=== PATIENT | male | born 1970 | race Caucasian/White ===

== ENCOUNTER → 2016-08-16 | Outpatient (CLI) | payer BC ==
[2016-08-16 15:07] LABS: CH 31.3; CHCM 35.5; HCT 48.3 % (39.0-53.0); HDW 2.65; HGB 16.7 gm/dL (13.0-17.5); MCH 30.6 pg (25.0-35.0); MCHC 34.6 g/dL (31.0-37.0); MCV 88.4 fL (80.0-100.0); Mean Platelet Volume 6.7; RBC 5.46 m/uL (4.30-5.90); RDW 11.9 % (11.5-15.5); WBC 6.8 k/uL (3.8-10.6)
[2016-08-16 15:23] LABS: ALT 45 U/L (21-72); AST 27 U/L (17-59); Alkaline Phosphatase 64 U/L (38-126); Anion Gap 10 mmol/L; Blood Urea Nitrogen 18 mg/dL (9-20); Calcium 9.5 mg/dL (8.4-10.2); Carbon Dioxide 32 mmol/L (22-30); Chloride 100 mmol/L (98-107); Glucose 79 mg/dL (74-99); Non-African American GFR(MDRD) >60 (>60 ml/min/1.73 sqM); Potassium 4.2 mmol/L (3.5-5.1); Sodium 142 mmol/L (137-145); Total Bilirubin 0.7 mg/dL (0.2-1.3); Total Protein 8.1 g/dL (6.3-8.2)
== END | disposition home or self-care (01) ==
LOC: LABWHC1 14:35
PROVIDERS: ATTEND Internal Medicine Interventional Cardiology
DX: I48.0 Paroxysmal atrial fibrillation (principal); I10 Essential (primary) hypertension
CPT/HCPCS: 36415; 80053; 84443; 85027

== ENCOUNTER 2017-11-20 15:19 | Observation (INO) | payer BC ==
[2017-11-20] MEDS ORDERED: SODIUM CHLORIDE 0.9% 500 ML IV STA (15:46)
[2017-11-20] MEDS ORDERED: DILTIAZEM 5 MG/1 ML (25ML VIAL) IV STA (15:47)
--- NOTE | 2017-11-20 15:55 | ED ---
General Adult HPI - General Chief complaint: Arrhythmia/Palpitations Stated complaint: A FIB Time Seen by Provider: 11/20/17 15:20 Source: patient, RN notes reviewed Mode of arrival: wheelchair Limitations: no limitations - History of Present Illness Initial comments: This is a 47-year-old male who presents emergency Department feeling as though his heart was racing and irregular. Patient states had a history of atrial fibrillation but is not on any medications for it at this time. Patient states he used to be has a blood pressure medications but he stopped because his chiropractor told to. Patient denies any chest pain or shortness of breath or difficulty breathing. Patient denies any recent fever chills or cough. Patient states he gets is on occasion but normally goes away fairly quickly and this did not go away so he decided come emergency department. Patient denies any abdominal pain patient denies nausea vomiting diarrhea. Patient denies any lightheadedness dizziness or near syncopal episode. Patient denies any leg swelling or calf tenderness. - Related Data Home Medications Medication Instructions Recorded Confirmed Multivit-Min/FA/Lycopen/Lutein 1 tab PO DAILY 11/20/17 11/20/17 [Centrum Silver Men Tablet] Potassium 297 - 396 mg PO DAILY 11/20/17 11/20/17 Saw [place] 500 mg PO DAILY 11/20/17 11/20/17 Allergies Allergy/AdvReac Type Severity Reaction Status Date / Time Penicillins Allergy Fever Verified 11/20/17 15:40 Review of Systems ROS Statement: Those systems with pertinent positive or pertinent negative responses have been documented in the HPI. ROS Other: All systems not noted in ROS Statement are negative. Past Medical History Past Medical History: Atrial Fibrillation, Hypertension Additional Past Medical History / Comment(s): hernia History of Any Multi-Drug Resistant Organisms: None Reported Past Surgical History: Hernia Repair Additional Past Surgical History / Comment(s): hand, Past Psychological History: No Psychological Hx Reported Smoking Status: Current every day smoker Past Alcohol Use History: Occasional Past Drug Use History: Marijuana General Exam - General Exam Comments Initial Comments: GENERAL: Patient is well-developed and well-nourished. Patient is nontoxic and well- hydrated and is in no acute distress. ENT: Neck is soft and supple. No significant lymphadenopathy is noted. Oropharynx is clear. Moist mucous membranes. EYES: The sclera were anicteric and conjunctiva were pink and moist. Extraocular movements were intact and pupils were equal round and reactive to light. Eyelids were unremarkable. PULMONARY: Unlabored respirations. Good breath sounds bilaterally. No audible rales rhonchi or wheezing was noted. CARDIOVASCULAR: There is a regular rate and rhythm without any murmurs gallops or rubs. ABDOMEN: Soft and nontender with normal bowel sounds. No palpable organomegaly was noted. There is no palpable pulsatile mass. SKIN: Skin is clear with no lesions or rashes and otherwise unremarkable. NEUROLOGIC: Patient is alert and oriented x3. Cranial nerves II through XII are grossly intact. Motor and sensory are also intact. Normal speech, volume and content. Symmetrical smile. MUSCULOSKELETAL: Normal extremities with adequate strength and full range of motion. No lower extremity swelling or edema. No calf tenderness. LYMPHATICS: No significant lymphadenopathy is noted PSYCHIATRIC: Normal psychiatric evaluation. Normal interpersonal interactions appears functionally intact in deals appropriately with others. No signs of depression. No signs of anxiety. Limitations: no limitations Course Vital Signs 11/20/17 11/20/17 15:23 16:16 Temperature 97.7 F Pulse Rate 60 99 Respiratory 18 18 Rate Blood Pressure 158/115 158/100 O2 Sat by Pulse 98 99 Oximetry Medical Decision Making - Medical Decision Making EKG shows atrial fibrillation 70 bpm QRS is 90 QT interval 350 QTC is 399. Patient's EKG shows no ST segment elevation or depression or T wave abnormalities are noted. Chest x-ray shows no acute normalities. I spoke with Dr. Sarah Sneed frequent the patient started on a loading dose of Rythmol and then 150 mg every 8 hours and also wanted the patient started on eliquis. I spoke with Dr. Cantor I wrote admitting orders. - Lab Data Result diagrams: 11/20/17 15:31 11/20/17 15:31 Lab Results 11/20/17 11/20/17 11/20/17 Range/Units 15:31 15:31 15:31 WBC 8.1 (3.8-10.6) k/uL RBC 6.37 H (4.30-5.90) m/uL Hgb 18.8 H (13.0-17.5) gm/dL Hct 53.3 H (39.0-53.0) % MCV 83.6 (80.0-100.0) fL MCH 29.5 (25.0-35.0) pg MCHC 35.3 (31.0-37.0) g/dL RDW 12.1 (11.5-15.5) % Plt Count 191 (150-450) k/uL Neutrophils % 55 % Lymphocytes % 31 % Monocytes % 8 % Eosinophils % 3 % Basophils % 1 % Neutrophils # 4.4 (1.3-7.7) k/uL Lymphocytes # 2.5 (1.0-4.8) k/uL Monocytes # 0.7 (0-1.0) k/uL Eosinophils # 0.3 (0-0.7) k/uL Basophils # 0.1 (0-0.2) k/uL PT (9.0-12.0) sec INR (<1.2) APTT (22.0-30.0) sec Sodium 144 (137-145) mmol/L Potassium 4.1 (3.5-5.1) mmol/L Chloride 107 (98-107) mmol/L Carbon Dioxide 21 L (22-30) mmol/L Anion Gap 16 mmol/L BUN 16 (9-20) mg/dL Creatinine 0.80 (0.66-1.25) mg/dL Est GFR (CKD-EPI)AfAm >90 (>60 ml/min/1.73 sqM) Est GFR (CKD-EPI)NonAf >90 (>60 ml/min/1.73 sqM) Glucose 115 H (74-99) mg/dL Calcium 10.2 (8.4-10.2) mg/dL Magnesium 2.0 (1.6-2.3) mg/dL Total Bilirubin 0.9 (0.2-1.3) mg/dL AST 33 (17-59) U/L ALT 40 (21-72) U/L Alkaline Phosphatase 66 (38-126) U/L Total Creatine Kinase 328 H (55-170) U/L Total Protein 8.0 (6.3-8.2) g/dL Albumin 4.9 (3.5-5.0) g/dL Free T4 1.17 (0.78-2.19) ng/dL 11/20/17 Range/Units 15:31 WBC (3.8-10.6) k/uL RBC (4.30-5.90) m/uL Hgb (13.0-17.5) gm/dL Hct (39.0-53.0) % MCV (80.0-100.0) fL MCH (25.0-35.0) pg MCHC (31.0-37.0) g/dL RDW (11.5-15.5) % Plt Count (150-450) k/uL Neutrophils % % Lymphocytes % % Monocytes % % Eosinophils % % Basophils % % Neutrophils # (1.3-7.7) k/uL Lymphocytes # (1.0-4.8) k/uL Monocytes # (0-1.0) k/uL Eosinophils # (0-0.7) k/uL Basophils # (0-0.2) k/uL PT 11.1 (9.0-12.0) sec INR 1.2 H (<1.2) APTT 23.8 (22.0-30.0) sec Sodium (137-145) mmol/L Potassium (3.5-5.1) mmol/L Chloride (98-107) mmol/L Carbon Dioxide (22-30) mmol/L Anion Gap mmol/L BUN (9-20) mg/dL Creatinine (0.66-1.25) mg/dL Est GFR (CKD-EPI)AfAm (>60 ml/min/1.73 sqM) Est GFR (CKD-EPI)NonAf (>60 ml/min/1.73 sqM) Glucose (74-99) mg/dL Calcium (8.4-10.2) mg/dL Magnesium (1.6-2.3) mg/dL Total Bilirubin (0.2-1.3) mg/dL AST (17-59) U/L ALT (21-72) U/L Alkaline Phosphatase (38-126) U/L Total Creatine Kinase (55-170) U/L Total Protein (6.3-8.2) g/dL Albumin (3.5-5.0) g/dL Free T4 (0.78-2.19) ng/dL Disposition Clinical Impression: Atrial fibrillation Disposition: ADMITTED IP TO THIS HOSP Referrals: None,Stated [Primary Care Provider] - 1-2 days Time of Disposition: 16:37
[2017-11-20] MEDS ORDERED: APIXABAN 5 MG TAB PO STA (16:00)
[2017-11-20] MEDS ORDERED: PROPAFENONE 150 MG TAB PO STA (16:00)
[2017-11-20 16:12] LABS: INR 1.2 (<1.2); Partial Thromboplastin Time 23.8 sec (22.0-30.0); Prothrombin Time 11.1 sec (9.0-12.0)
--- NOTE | 2017-11-20 16:12 | XR ---
EXAMINATION TYPE: XR chest 2V DATE OF EXAM: 11/20/2017 COMPARISON: NONE HISTORY: Chest pain TECHNIQUE: Frontal and lateral views of the chest are obtained. FINDINGS: There is no focal air space opacity. No evidence for pneumothorax. No pleural effusion. The cardiac silhouette size is within normal limits. The osseous structures are grossly intact. IMPRESSION: 1. No acute cardiopulmonary process.
[2017-11-20 16:15] LABS: ALT 40 U/L (21-72); AST 33 U/L (17-59); Albumin 4.9 g/dL (3.5-5.0); Alkaline Phosphatase 66 U/L (38-126); Anion Gap 16 mmol/L; Blood Urea Nitrogen 16 mg/dL (9-20); Calcium 10.2 mg/dL (8.4-10.2); Carbon Dioxide 21 mmol/L (22-30); Chloride 107 mmol/L (98-107); Glucose 115 mg/dL (74-99); Potassium 4.1 mmol/L (3.5-5.1); Sodium 144 mmol/L (137-145); Total Bilirubin 0.9 mg/dL (0.2-1.3)
[2017-11-20 16:23] LABS: Creatine Kinase 328 U/L (55-170)
[2017-11-20 16:28] LABS: Basophils # (A) 0.1 k/uL (0-0.2); Basophils % (A) 1 %; Eosinophils # (A) 0.3 k/uL (0-0.7); Eosinophils % (A) 3 %; HCT 53.3 % (39.0-53.0); HGB 18.8 gm/dL (13.0-17.5); Lymphocytes # (A) 2.5 k/uL (1.0-4.8); Lymphocytes % (A) 31 %; MCH 29.5 pg (25.0-35.0); MCHC 35.3 g/dL (31.0-37.0); MCV 83.6 fL (80.0-100.0); Mean Platelet Volume 7.7; Monocytes # (A) 0.7 k/uL (0-1.0); Monocytes % (A) 8 %; Neutrophils # (A) 4.4 k/uL (1.3-7.7); Neutrophils % (A) 55 %; Platelet Count 191 k/uL (150-450); RBC 6.37 m/uL (4.30-5.90); RDW 12.1 % (11.5-15.5); WBC 8.1 k/uL (3.8-10.6)
[2017-11-20 16:31] LABS: T4, Free (Free Thyroxine) 1.17 ng/dL (0.78-2.19)
[2017-11-20 16:35] LABS: Creatine Kinase MB 1.3 ng/mL (0.0-2.4); Troponin I <0.012 ng/mL (0.000-0.034)
[2017-11-20] MEDS ORDERED: NITROGLYCERIN SL TABS 0.4 MG TAB SUBLINGUAL PRN (16:37)
[2017-11-20] MEDS ORDERED: NALOXONE 0.4 MG/ML 1 ML VIAL IV PRN (17:28)
[2017-11-20 17:40] LABS: Cocaine Screen,Urine Not Detected (NotDetected); Opiate Screen,Urine Not Detected (NotDetected); Phencyclidine Screen,Urine Not Detected (NotDetected); Urn Cannabinoid Scrn Detected (NotDetected)
[2017-11-20 17:41] LABS: Amphetamine Screen,Urine Not Detected (NotDetected); Barbiturate Screen,Urine Not Detected (NotDetected); Benzodiazepines Screen,Urine Not Detected (NotDetected); Methadone Screen, Urine Not Detected (NotDetected); Oxycodone Screen, Urine Not Detected (NotDetected); Tricyclic Antidepressant,Urine Not Detected (NotDetected)
--- NOTE | 2017-11-20 17:48 | P.HPIM ---
History of Present Illness H&P Date: 11/20/17 Chief Complaint: Irregular heartbeat 47-year-old male with history of paroxysmal A. fib and hypertension. Not currently treated Patient presented to the hospital due to waking up middle of the night feeling short of breath, diaphoretic, dizzy, and irregular heartbeat skipped beats. He realizes that he has history of A. fib that's not currently on any treatment. He said he visited the ED 3 times in the past with similar symptoms and by the time for now that we discharge her he comes to the ED he would be converted on his own. So he waited at home hoping that he will convert back to regular heartbeat. So he waited however he was not improving eventually decided to come to the hospital. He indicated that he used to be on blood pressure medications in the past however he stopped it per his chiropractor recommendations and has been taking potassium since then which she thinks it helps with his blood pressure. Currently patient seen in the ED, he feels fine denies any chest pain or trouble breathing and wondering when he can go home. I had thorough discussion with him regarding his current condition. Patient indicated that in the past he was told that he has some leaky heart valves. Advanced directives discussed with the patient he elected to be a full code and named his stepdad Jose Manuel Thompson is surrogate decision-maker Review of Systems Constitutional: Patient denies fever, denies chills, denies night sweating, denies significant weight changes, reports snoring, reports poor sleep with multiple awakenings Eyes: Patient denies visual changes, denies eye pain ENT: Patient denies ear pain, denies rhinorrhea, denies sore throat Cardiovascular: Patient denies exertional dyspnea, denies peripheral leg edema, denies orthopnea, denies paroxysmal nocturnal dyspnea Respiratory:Patient denies cough, denies wheezing, reports shortness of breath as mentioned in HPI Gastrointestinal: Patient denies diarrhea, denies constipation, denies nausea , denies vomiting, denies abdominal pain Genitourinary: Patient denies dysuria, denies hematuria, denies changes in urinary habits, denies genital lesions Musculoskeletal: Patient denies muscle pain, denies joint pain Psychiatric: Patient denies changes in mood or memory, denies suicidal ideation, denies anxiety Endocrine: Patient denies heat intolerance, denies cold intolerance, denies excessive thirst, denies polyuria Neurological: Patient denies focal neurologic deficits, denies weakness, denies numbness, denies tingling Hem/Lymphatic: Patient denies bleeding tendency, denies bruising, denies swollen lymph glands Allergic/Immun: Patient denies recent allergic reactions Skin: Patient denies rashes, denies pruritis, denies ulcers Past Medical History Past Medical History: Atrial Fibrillation, Hypertension Additional Past Medical History / Comment(s): hernia History of Any Multi-Drug Resistant Organisms: None Reported Past Surgical History: Hernia Repair Additional Past Surgical History / Comment(s): hand, Past Psychological History: No Psychological Hx Reported Smoking Status: Current every day smoker Past Alcohol Use History: Occasional Past Drug Use History: Marijuana - Past Family History Family Additional Family Medical History / Comment(s): Reports strong family history of heart disease, lung cancer Medications and Allergies Home Medications Medication Instructions Recorded Confirmed Type Multivit-Min/FA/Lycopen/Lutein 1 tab PO DAILY 11/20/17 11/20/17 History [Centrum Silver Men Tablet] Potassium 297 - 396 mg PO DAILY 11/20/17 11/20/17 History Saw [place] 500 mg PO DAILY 11/20/17 11/20/17 History Allergies Allergy/AdvReac Type Severity Reaction Status Date / Time Penicillins Allergy Fever Verified 11/20/17 15:40 Physical Exam Vitals: Vital Signs Temp Pulse Resp BP Pulse Ox 11/20/17 17:14 97 18 148/98 100 11/20/17 16:16 99 18 158/100 99 11/20/17 15:23 97.7 F 60 18 158/115 98 Intake and Output 11/20/17 11/20/17 11/20/17 06:59 14:59 22:59 Other: Weight 108.862 kg Constitutional: No acute distress, conversant, pleasant Eyes: Anicteric sclerae, moist conjunctiva, no lid-lag Pupils equal round reactive to light ENMT: NC/AT Oropharynx clear, no erythema, or exudates Neck: Supple, FROM, no masses, or JVD No carotid bruits No thyromegaly Lungs: Clear to auscultation Clear to percussion Normal respiratory effort, no accessory muscle use Cardiovascular: Heart irregular rate and rhythm, No murmurs, gallops, or rubs No peripheral edema Abdominal: Soft, Nontender, no guarding, rebound or rigidity Abdomen moving with respiration Normoactive bowel sounds No hepatomegaly, No splenomegaly No palpable mass Umbilical hernia noted, reducible and soft, no skin changes Skin: Normal temperature, tone, texture, turgor No induration No subcutaneous nodules No lesions No ulcers Noted discoloration with darkening of bilateral lower third of the legs., Varicose veins bilaterally Extremities: No digital cyanosis No clubbing Pedal pulses intact and symmetrical Radial pulses intact and symmetrical No calf tenderness Psychiatric: Alert and oriented to person, place and time Appropriate affect fair judgment Neuro Muscles Strength 5/5 in all 4 extremities Sensation to light touch grossly present throughout Cranial nerves II-XII grossly intact No focal sensory deficits Lymphatics: no palpable cervical or supraclavicular , or inguinal lymph nodes Results CBC & Chem 7: 11/20/17 15:31 11/20/17 15:31 Labs: Abnormal Lab Results - Last 24 Hours (Table) 11/20/17 11/20/17 11/20/17 Range/Units 15:31 15:31 15:31 RBC 6.37 H (4.30-5.90) m/uL Hgb 18.8 H (13.0-17.5) gm/dL Hct 53.3 H (39.0-53.0) % INR (<1.2) Carbon Dioxide 21 L (22-30) mmol/L Glucose 115 H (74-99) mg/dL Total Creatine Kinase 328 H (55-170) U/L 11/20/17 Range/Units 15:31 RBC (4.30-5.90) m/uL Hgb (13.0-17.5) gm/dL Hct (39.0-53.0) % INR 1.2 H (<1.2) Carbon Dioxide (22-30) mmol/L Glucose (74-99) mg/dL Total Creatine Kinase (55-170) U/L Assessment and Plan Assessment: 47-year-old male with history of paroxysmal A. fib and hypertension presented the hospital due to irregular heartbeat, shortness of breath and dizziness. He was found to be in A. fib. In the emergency department further discussion with cardiology who recommended starting patient on Rythmol and Eliquis, and admitted under observation for further workup. Plan: #Paroxysmal A. fib with RVR, chads score of 1 Currently on Rythmol and Eliquis per cardiology recommendations Await 2-D echocardiogram TSH unremarkable Electrolytes unremarkable Await further cardiology recommendations #. polycythemia unknown underlying cause, possible nocturnal hypoxemia from suspected sleep apnea OP follow up #Moderate to High suspicion for sleep apnea Recommending outpatient sleep study especially in light of background of atrial fibrillation #Hypertension, uncontrolled Not currently taking any medications Start the patient on amlodipine #Obesity Patient counseled to try some modification and weight loss #History of epilepsy Patient not currently on any medications, last seizure was years ago DVT prophylaxis Currently on Eliquis for A. fib Surrogate decision-maker: Patient's nicola Thompson CODE STATUS: Full code Discussed with: Patient, ER, family Anticipated discharge: [address]: Home A total of 50 minutes was spent on the care of this complex patient more than 50 % of the time was spent in counseling and care coordination.
[2017-11-20] MEDS: amLODIPine 5 MG TAB PO SCH (18:21)
[2017-11-20] MEDS: APIXABAN 5 MG TAB PO SCH (20:03)
[2017-11-20 21:15] VITALS: BMI 29.9
[2017-11-20] MEDS ORDERED: amLODIPine 5 MG TAB PO STA (21:38)
[2017-11-20 22:17] LABS: Creatine Kinase MB 0.9 ng/mL (0.0-2.4); Troponin I 0.015 ng/mL (0.000-0.034)
[2017-11-20 22:25] VITALS: RESP 16
[2017-11-20] MEDS: PROPAFENONE 150 MG TAB PO SCH (23:34)
[2017-11-21 03:41] LABS: Basophils # (A) 0.1 k/uL (0-0.2); Basophils % (A) 1 %; Eosinophils # (A) 0.4 k/uL (0-0.7); Eosinophils % (A) 5 %; HCT 50.2 % (39.0-53.0); HGB 17.5 gm/dL (13.0-17.5); Lymphocytes # (A) 2.6 k/uL (1.0-4.8); Lymphocytes % (A) 35 %; MCH 29.8 pg (25.0-35.0); MCHC 34.9 g/dL (31.0-37.0); MCV 85.3 fL (80.0-100.0); Mean Platelet Volume 6.7; Monocytes # (A) 0.5 k/uL (0-1.0); Monocytes % (A) 7 %; Neutrophils # (A) 3.7 k/uL (1.3-7.7); Neutrophils % (A) 50 %; Platelet Count 167 k/uL (150-450); RBC 5.89 m/uL (4.30-5.90); RDW 11.9 % (11.5-15.5); WBC 7.4 k/uL (3.8-10.6)
[2017-11-21 04:06] LABS: Creatine Kinase 199 U/L (55-170)
[2017-11-21 04:09] LABS: ALT 43 U/L (21-72); AST 27 U/L (17-59); Albumin 4.5 g/dL (3.5-5.0); Alkaline Phosphatase 56 U/L (38-126); Anion Gap 13 mmol/L; Blood Urea Nitrogen 16 mg/dL (9-20); Calcium 9.2 mg/dL (8.4-10.2); Carbon Dioxide 24 mmol/L (22-30); Chloride 105 mmol/L (98-107); Cholesterol 172 mg/dL (<200); Glucose 106 mg/dL (74-99); HDL Cholesterol 27 mg/dL (40-60); Magnesium 2.1 mg/dL (1.6-2.3); Sodium 142 mmol/L (137-145); Total Bilirubin 0.9 mg/dL (0.2-1.3); Total Protein 7.3 g/dL (6.3-8.2); Triglycerides 459 mg/dL (<150)
[2017-11-21 04:19] LABS: Creatine Kinase MB 0.7 ng/mL (0.0-2.4); Troponin I <0.012 ng/mL (0.000-0.034)
--- NOTE | 2017-11-21 08:40 | P.CRDCN ---
History of Present Illness Consult date: 11/21/17 Requesting physician: Hattie Cantor Consult reason: atrial fibrillation Chief complaint: Palpitations History of present illness: This is a 47-year-old gentleman with history of prior paroxysmal atrial fibrillation, hypertension, nondiabetic, no hyperlipidemia, he does smoke marijuana, he states he used to drink quite heavily in the past but has not done so for several years. On Sunday however he states he had a few alcoholic beverages. He presents to the hospital with symptoms of feeling his heart racing fast and irregular. Patient was not on any medications at home, he used to take medications for blood pressure, he states that his chiropractor advised him he didn't need it, patient is not on anticoagulation, and is not on any rate lowering or antiarrhythmic type medications. EKG on presentation here shows atrial fibrillation with a controlled ventricular response. Subsequent EKG and EKG performed this morning showed normal sinus rhythm. Chest x-ray did not reveal any acute cardiopulmonary process. Patient was initiated on Cardizem on arrival here, he was given a 10 mg IV bolus, patient was then given 600 mg of Rythmol and started on 150 of Rythmol every 8 hourly. He was also initiated on Eliquis 5 mg one tablet by mouth twice a day. At the time of my examination this morning, patient feels well. Denies any dizziness or lightheadedness, no palpitations. Past Medical History Past Medical History: Atrial Fibrillation, Hypertension Additional Past Medical History / Comment(s): hernia History of Any Multi-Drug Resistant Organisms: None Reported Past Surgical History: Hernia Repair Additional Past Surgical History / Comment(s): hand, Past Anesthesia/Blood Transfusion Reactions: No Reported Reaction Past Psychological History: No Psychological Hx Reported Smoking Status: Former smoker Past Alcohol Use History: Occasional Past Drug Use History: Marijuana - Past Family History Family Additional Family Medical History / Comment(s): Reports strong family history of heart disease, lung cancer Medications and Allergies Home Medications Medication Instructions Recorded Confirmed Type Multivit-Min/FA/Lycopen/Lutein 1 tab PO DAILY 11/20/17 11/20/17 History [Centrum Silver Men Tablet] Potassium 297 - 396 mg PO DAILY 11/20/17 11/20/17 History Saw [place] 500 mg PO DAILY 11/20/17 11/20/17 History Allergies Allergy/AdvReac Type Severity Reaction Status Date / Time Penicillins Allergy Fever Verified 11/20/17 15:40 Physical Exam Vitals: Vital Signs Temp Pulse Pulse Resp BP BP Pulse Ox 11/21/17 03:30 97.7 F 76 16 139/85 100 11/20/17 23:30 97.6 F 73 16 137/85 97 11/20/17 21:20 176/101 11/20/17 20:30 96.9 F L 65 16 148/107 96 11/20/17 19:46 98 F 69 18 141/69 100 11/20/17 19:20 71 18 164/94 100 11/20/17 18:13 64 18 154/90 98 11/20/17 17:14 97 18 148/98 100 11/20/17 16:16 99 18 158/100 99 11/20/17 15:23 97.7 F 60 18 158/115 98 Intake and Output 11/20/17 11/21/17 11/21/17 22:59 06:59 14:59 Intake Total 300 300 118 Balance 300 300 118 Intake: Oral 300 300 118 Other: Voiding Method Toilet Toilet # Voids 1 2 Weight 108.862 kg 105.3 kg PHYSICAL EXAMINATION: HEENT: Head is atraumatic, normocephalic. Pupils equal, round. Neck is supple. There is no elevated jugular venous pressure. HEART EXAMINATION: Heart S1, S2 normal. No murmur or gallop heard. CHEST EXAMINATION: Lungs are clear to auscultation and precussion. No chest wall tenderness is noted on palpation or with deep breathing. ABDOMEN: Soft, nontender. Bowel sounds are heard. No organomegaly noted. EXTREMITIES: 2+ peripheral pulses with no evidence of peripheral edema and no calf tenderness noted. NEUROLOGIC patient is awake, alert and oriented -3. . Results 11/21/17 03:31 11/21/17 03:31 Cardiac Enzymes 11/20/17 11/20/17 11/20/17 Range/Units 15:31 15:31 21:20 AST 33 (17-59) U/L CK-MB (CK-2) 1.3 0.9 (0.0-2.4) ng/mL Troponin I <0.012 0.015 (0.000-0.034) ng/mL 11/21/17 11/21/17 Range/Units 03:31 03:31 AST 27 (17-59) U/L CK-MB (CK-2) 0.7 (0.0-2.4) ng/mL Troponin I <0.012 (0.000-0.034) ng/mL Coagulation 11/20/17 Range/Units 15:31 PT 11.1 (9.0-12.0) sec APTT 23.8 (22.0-30.0) sec Lipids 11/21/17 Range/Units 03:31 Triglycerides 459 H (<150) mg/dL Cholesterol 172 (<200) mg/dL HDL Cholesterol 27 L (40-60) mg/dL CBC 11/20/17 11/21/17 Range/Units 15:31 03:31 WBC 8.1 7.4 (3.8-10.6) k/uL RBC 6.37 H 5.89 (4.30-5.90) m/uL Hgb 18.8 H 17.5 (13.0-17.5) gm/dL Hct 53.3 H 50.2 (39.0-53.0) % Plt Count 191 167 (150-450) k/uL Comprehensive Metabolic Panel 11/20/17 11/21/17 Range/Units 15:31 03:31 Sodium 144 142 (137-145) mmol/L Potassium 4.1 4.0 (3.5-5.1) mmol/L Chloride 107 105 (98-107) mmol/L Carbon Dioxide 21 L 24 (22-30) mmol/L BUN 16 16 (9-20) mg/dL Creatinine 0.80 0.90 (0.66-1.25) mg/dL Glucose 115 H 106 H (74-99) mg/dL Calcium 10.2 9.2 (8.4-10.2) mg/dL AST 33 27 (17-59) U/L ALT 40 43 (21-72) U/L Alkaline Phosphatase 66 56 (38-126) U/L Total Protein 8.0 7.3 (6.3-8.2) g/dL Albumin 4.9 4.5 (3.5-5.0) g/dL Current Medications Generic Name Dose Route Start Last Admin Trade Name Freq PRN Reason Stop Dose Admin Amlodipine Besylate 5 mg 11/20/17 17:45 11/20/17 18:21 Norvasc PO 5 mg DAILY ULISES Administration Apixaban 5 mg 11/20/17 21:00 11/20/17 20:03 Eliquis PO Not Given BID ULISES Aspirin 325 mg 11/21/17 09:00 Aspirin PO DAILY ULISES Naloxone HCl 0.2 mg 11/20/17 17:28 Narcan IV Q2M PRN Opioid Reversal Nitroglycerin 0.4 mg 11/20/17 16:37 Nitrostat SUBLINGUAL Q5M PRN Chest Pain Propafenone HCl 150 mg 11/21/17 00:00 11/20/17 23:34 Rythmol PO 150 mg Q8HR ULISES Administration Intake and Output 11/20/17 11/21/17 11/21/17 22:59 06:59 14:59 Intake Total 300 300 118 Balance 300 300 118 Intake: Oral 300 300 118 Other: Voiding Method Toilet Toilet # Voids 1 2 Weight 108.862 kg 105.3 kg 11/21/17 03:31 11/21/17 03:31 EKG Interpretations (text) Initial EKG showed atrial fibrillation with a controlled ventricular response. Subsequent EKG shows normal sinus rhythm. Assessment and Plan Plan: Assessment and plan #1 atrial fibrillation, paroxysmal, patient currently in normal sinus rhythm. Patient does have history of paroxysmal atrial fibrillation #2 hypertension, untreated #3 marijuana use Plan We will obtain an echocardiogram with Doppler study. Patient was also given a dose of 600 mg of Rythmol and started on Rythmol 150 3 times a day which we will continue. Eliquis 5 mg twice a day has also been initiated, we will continue this as well. Further recommendations to follow. DNP note has been reviewed, I agree with a documented findings and plan of care. Patient was seen and examined.
[2017-11-21] MEDS: APIXABAN 5 MG TAB PO SCH (08:54)
[2017-11-21] MEDS: PROPAFENONE 150 MG TAB PO SCH (08:56)
[2017-11-21] MEDS: amLODIPine 5 MG TAB PO SCH (08:57)
[2017-11-21] MEDS ORDERED: ASPIRIN 325 MG TAB PO SCH (09:00)
[2017-11-21] MEDS ORDERED: FLECAINIDE 50 MG TAB PO SCH (09:30)
[2017-11-21 09:48] VITALS: BP 154/103; PULSE 69; TEMP 97.4
--- NOTE | 2017-11-21 11:31 | P.DS ---
Providers Date of admission: 11/20/17 16:37 Attending physician: Hattie Cantor MD Consults: 11/20/17 16:37 Consult Physician Urgent Consulting Provider: [facility] Consult Reason/Comments: A. fib Do you want consulting provider notified?: Yes Primary care physician: Stated None Hospital Course: Final Diagnosis at discharge Paroxysmal atrial fibrillation Uncontrolled hypertension Polycythemia, resulting in today however remained borderline high normal, this is possibly due to component of dehydration and secondary to chronic external hypoxemia from obstructive sleep apnea secondary diagnosis Suspected obstructive sleep apnea History of epilepsy not currently on any treatment 47-year-old male with history of paroxysmal A. fib and hypertension presented the hospital due to irregular heartbeat, shortness of breath and dizziness. He was found to be in A. fib. In the emergency department further discussion with cardiology who recommended starting patient on Rythmol and Eliquis. 2D echocardiogram performed, cardiology recommended to continue on Eliquis and switched to flicanide, and to follow up outpatient with cardiology for further recommendations. Patient converted in sinus rhythm, he reported some initial dizziness with the new medication (flicanide) however since has resolved, I saw and examined the patient prior to discharge, I manually checked orthostatic vital signs and were negative for orthostatic hypotension. His heartrate are stable in the 70s. Patient reports resolution of chest pain, shortness of breath, and dizziness. He is eager to go home. Patient was started on low- dose amlodipine 5 mg which helped improve his blood pressure Constitutional: vital signs stable, orthostatic vital signs are negative for orthostatic hypotension ,Not in acute distress, pleasant, conversant Lungs: Clear to auscultation bilaterally, clear to percussion, normal respiratory effort no use of accessory muscles Cardiovascular: Regular rate and rhythm, no murmurs, no gallops, no rubs, no peripheral edema Gastrointestinal: Soft, no tenderness to palpation, no palpable hepatosplenomegally, bowel sounds positive, umbilical hernia Extremities: No digital cyanosis or clubbing, peripheral pulses palpable and equal over bilateral radial arteries and dorsalis pedis artery, no calf muscle tenderness Psych: Alert, oriented to place, person and time, appropriate affect, intact judgment Patient to be discharged home prescriptions sent to his preferred pharmacy Patient was counseled to monitor for any signs of bleeding. Patient encouraged to follow-up with cardiology and primary care physician Patient to consider outpatient sleep study rule out sleep apnea Patient counseled regarding lifestyle modification and weight loss, low salt diet. Patient verbalized understanding of the above medications and voiced agreement 45 minutes were spent discharging this patient, and more than 50% of the time was spent in counseling the patient and family and in coordinating care. Pertinent Studies: Echocardiogram Patient Condition at Discharge: Stable Plan - Discharge Summary Discharge Rx Participant: No New Discharge Prescriptions: New amLODIPine [Norvasc] 5 mg PO DAILY #30 tab Apixaban [Eliquis] 5 mg PO BID #60 tab Flecainide [Tambocor] 50 mg PO Q12HR #60 tab Nitroglycerin Sl Tabs [Nitrostat] 0.4 mg SUBLINGUAL Q5M PRN #100 tab PRN Reason: Chest Pain Continue Multivit-Min/FA/Lycopen/Lutein [Centrum Silver Men Tablet] 1 tab PO DAILY Discontinued Potassium 297 - 396 mg PO DAILY Saw [place] 500 mg PO DAILY Discharge Medication List Multivit-Min/FA/Lycopen/Lutein [Centrum Silver Men Tablet] 1 tab PO DAILY [History] Apixaban [Eliquis] 5 mg PO BID #60 tab 11/21/17 [Rx] Flecainide [Tambocor] 50 mg PO Q12HR #60 tab 11/21/17 [Rx] Nitroglycerin Sl Tabs [Nitrostat] 0.4 mg SUBLINGUAL Q5M PRN #100 tab 11/21/17 [ Rx] amLODIPine [Norvasc] 5 mg PO DAILY #30 tab 11/21/17 [Rx] Follow up Appointment(s)/Referral(s): David Zambrano MD [STAFF PHYSICIAN] - 11/30/17 3:30 pm () Tomasa Thurston NPC [REFERRING] - 1 Week (Office will call with follow up appointment.) Patient Instructions/Handouts: A-fib (Atrial Fibrillation) (GEN), Heart Healthy Diet (DC), DASH Eating Plan (DC), Hypertension (DC) Activity/Diet/Wound Care/Special Instructions: activity as tolerated Care Plan Goals (MU): consider referral for Outpatient sleep study to rule out sleep apnea Discharge/Stand Alone Forms: Work/Release Restrictions Form Discharge Disposition: HOME SELF-CARE
--- NOTE | 2017-11-21 15:36 | ECHOF ---
Referral Reason:A. fib MEASUREMENTS -------- HEIGHT: 190.5 cm WEIGHT: 108.9 kg BP: 158/100 RVIDd: 3.5 cm (< 3.3) IVSd: 1.4 cm (0.6 - 1.1) LVIDd: 5.2 cm (3.9 - 5.3) LVPWd: 1.4 cm (0.6 - 1.1) IVSs: 1.8 cm LVIDs: 3.4 cm LVPWs: 2.1 cm LAESV Index (A-L): 24.70 ml/m Ao Diam: 3.1 cm (2.0 - 3.7) AV Cusp: 2.3 cm (1.5 - 2.6) LA Diam: 3.8 cm (2.7 - 3.8) EPSS: 1.4 cm MV E Juan: 0.71 m/s MV DecT: 304 ms MV A Juan: 0.37 m/s MV E/A Ratio: 1.93 RAP: 5.00 mmHg RVSP: 9.57 mmHg MV EF SLOPE: 81.03 mm/s (70 - 150) MV EXCURSION: 1.44 cm (> 18.000) FINDINGS -------- Sinus rhythm. This was a technically adequate study. The left ventricular size is normal. There is moderate concentric left ventricular hypertrophy. O verall left ventricular systolic function is mildly impaired with, an EF between 45 - 50 %. The right ventricle is mildly enlarged. Normal LA size by volume 22+/-6 ml/m2. The right atrium is normal in size. Aortic valve is trileaflet and is mildly thickened. There is no evidence of aortic regurgitation. There is no evidence of aortic stenosis. The mitral valve leaflets are mildly thickened. There is trace to mild mitral regurgitation. Trace tricuspid regurgitation present. Right ventricular systolic pressure is normal at < 35 mmHg. There is no evidence of pulmonary hypertension. Trace/mild (physiologic) pulmonic regurgitation. The aortic root size is normal. Normal inferior vena cava with normal inspiratory collapse consistent with estimated right atrial pre ssure of 5 mmHg. There is no pericardial effusion. CONCLUSIONS -------- 1. Sinus rhythm. 2. This was a technically adequate study. 3. The left ventricular size is normal. 4. There is moderate concentric left ventricular hypertrophy. 5. Overall left ventricular systolic function is mildly impaired with, an EF between 45 - 50 %. 6. The right ventricle is mildly enlarged. 7. Normal LA size by volume 22+/-6 ml/m2. 8. Aortic valve is trileaflet and is mildly thickened. 9. The mitral valve leaflets are mildly thickened. 10. There is trace to mild mitral regurgitation. 11. Trace tricuspid regurgitation present. 12. Right ventricular systolic pressure is normal at < 35 mmHg. 13. There is no evidence of pulmonary hypertension. 14. Trace/mild (physiologic) pulmonic regurgitation. 15. The aortic root size is normal. 16. There is no pericardial effusion. PROFESSIONAL NURSING TUTOR: Yoel Plunkett RDCS
== END 2017-11-21 14:08 | disposition home or self-care (01) ==
LOC: EC 15:19 → 6SEL 16:37
PROVIDERS: ADMIT Internal Medicine; ATTEND Internal Medicine
DX: I48.0 Paroxysmal atrial fibrillation (principal); I10 Essential (primary) hypertension; D75.1 Secondary polycythemia; F12.90 Cannabis use, unspecified, uncomplicated; F17.200 Nicotine dependence, unspecified, uncomplicated; E66.9 Obesity, unspecified; Z68.29 Body mass index [BMI] 29.0-29.9, adult; G40.909 Epilepsy, unspecified, not intractable, without status epilepticus; K42.9 Umbilical hernia without obstruction or gangrene; Z88.0 Allergy status to penicillin; Z79.899 Other long term (current) drug therapy; Z80.1 Family history of malignant neoplasm of trachea, bronchus and lung; Z82.49 Family history of ischemic heart disease and other diseases of the circulatory system
CPT/HCPCS: 99285 ×2; 96360 ×2; 36415; 93005; 93306; 84439; 80061; 80053 ×2; 82550 ×2; 82553 ×2; 83735 ×2; 84443; 84484 ×2; 85025 ×2; 85610; 85730; 80306; 71046; G0378 ×2

== ENCOUNTER 2017-11-24 04:57 | Emergency (ER) | payer BC ==
[2017-11-24] MEDS ORDERED: SODIUM CHLORIDE 0.9% 500 ML IV ONE ×2 (05:15→05:48)
[2017-11-24 05:23] LABS: Basophils # (A) 0.1 k/uL (0-0.2); Basophils % (A) 1 %; Eosinophils # (A) 0.4 k/uL (0-0.7); Eosinophils % (A) 4 %; HCT 50.6 % (39.0-53.0); HGB 17.9 gm/dL (13.0-17.5); Lymphocytes # (A) 3.6 k/uL (1.0-4.8); Lymphocytes % (A) 38 %; MCH 29.9 pg (25.0-35.0); MCHC 35.3 g/dL (31.0-37.0); MCV 84.8 fL (80.0-100.0); Mean Platelet Volume 7.1; Monocytes # (A) 0.7 k/uL (0-1.0); Monocytes % (A) 7 %; Neutrophils # (A) 4.5 k/uL (1.3-7.7); Neutrophils % (A) 48 %; Platelet Count 175 k/uL (150-450); RBC 5.97 m/uL (4.30-5.90); RDW 11.8 % (11.5-15.5); WBC 9.4 k/uL (3.8-10.6)
--- NOTE | 2017-11-24 05:23 | ED ---
General Adult HPI - General Chief complaint: Arrhythmia/Palpitations Stated complaint: Chest Palpitations hx AFib Time Seen by Provider: 11/24/17 05:09 Source: patient, RN notes reviewed, old records reviewed Mode of arrival: ambulatory Limitations: no limitations - History of Present Illness Initial comments: 47-year-old male presenting with palpitations. Patient did have recent diagnosis of atrial fibrillation and was admitted to the hospital and started on Eliquis, and Rythmol. He is prescribed 50 mg of Rythmol every 12 hours. He missed his evening dose. He states he awoke at 4 AM with palpitations and some chest discomfort. No significant chest pain. No dyspnea. No cough no fever or chills. Patient believes that he had many normal rhythm at the time of discharge. - Related Data Home Medications Medication Instructions Recorded Confirmed Multivit-Min/FA/Lycopen/Lutein 1 tab PO DAILY 11/20/17 11/24/17 [Centrum Silver Men Tablet] Previous Rx's Medication Instructions Recorded Apixaban [Eliquis] 5 mg PO BID #60 tab 11/21/17 Flecainide [Tambocor] 50 mg PO Q12HR #60 tab 11/21/17 Nitroglycerin Sl Tabs [Nitrostat] 0.4 mg SUBLINGUAL Q5M PRN #100 tab 11/21/17 amLODIPine [Norvasc] 5 mg PO DAILY #30 tab 11/21/17 Allergies Allergy/AdvReac Type Severity Reaction Status Date / Time Penicillins Allergy Fever Verified 11/24/17 05:03 Review of Systems ROS Statement: Those systems with pertinent positive or pertinent negative responses have been documented in the HPI. ROS Other: All systems not noted in ROS Statement are negative. Past Medical History Past Medical History: Atrial Fibrillation, Hypertension Additional Past Medical History / Comment(s): hernia History of Any Multi-Drug Resistant Organisms: None Reported Past Surgical History: Hernia Repair Additional Past Surgical History / Comment(s): hand, Past Anesthesia/Blood Transfusion Reactions: No Reported Reaction Past Psychological History: No Psychological Hx Reported Smoking Status: Former smoker Past Alcohol Use History: Occasional Past Drug Use History: Marijuana - Past Family History Family Additional Family Medical History / Comment(s): Reports strong family history of heart disease, lung cancer General Exam Limitations: no limitations Head exam: Present: atraumatic, normocephalic Eye exam: Present: normal appearance, PERRL, EOMI ENT exam: Present: normal exam Neck exam: Present: normal inspection. Absent: tenderness, meningismus Respiratory exam: Present: normal lung sounds bilaterally. Absent: respiratory distress, wheezes Cardiovascular Exam: Present: tachycardia, irregular rhythm GI/Abdominal exam: Present: soft. Absent: distended, tenderness Extremities exam: Present: normal inspection, normal capillary refill. Absent: pedal edema Back exam: Present: normal inspection, full ROM Neurological exam: Present: alert, oriented X3, CN II-XII intact. Absent: motor sensory deficit Psychiatric exam: Present: normal affect, normal mood Skin exam: Present: warm, dry, intact. Absent: cyanosis, diaphoretic Course Vital Signs 11/24/17 11/24/17 05:00 05:19 Temperature 98.1 F Pulse Rate 116 H Pulse Rate [ 127 H Acds Block 1 Operator ] Respiratory 18 Rate Blood Pressure 176/134 O2 Sat by Pulse 100 Oximetry EKG Findings - EKG Comments: EKG Findings:: EKG obtained at 0508 atrial fibrillation with RVR rate of 108, QRS duration 100, QTC 455. EKG obtained at 0553 shows normal sinus rhythm with sinus arrhythmia, age undetermined septal infarct, ventricular rate of 78, CA interval 170, QRS duration 100, QTC 435, no ST segment elevation. Medical Decision Making - Medical Decision Making 47-year-old male presenting with palpitations, found to be in A. fib with RVR. Patient does have history of A. fib, he missed one dose of his Rythmol. He has been taking his anticoagulation medication as prescribed. He is given 50 mg of Rythmol which is his prescribed dose and 500 mL normal saline bolus. He does convert into sinus rhythm. He is asymptomatic on reevaluation. He will be discharged home, continue medications as prescribed. Follow with cardiology. - Lab Data Result diagrams: 11/24/17 05:13 11/24/17 05:13 Lab Results 11/24/17 11/24/17 11/24/17 Range/Units 05:13 05:13 05:13 WBC 9.4 (3.8-10.6) k/uL RBC 5.97 H (4.30-5.90) m/uL Hgb 17.9 H (13.0-17.5) gm/dL Hct 50.6 (39.0-53.0) % MCV 84.8 (80.0-100.0) fL MCH 29.9 (25.0-35.0) pg MCHC 35.3 (31.0-37.0) g/dL RDW 11.8 (11.5-15.5) % Plt Count 175 (150-450) k/uL Neutrophils % 48 % Lymphocytes % 38 % Monocytes % 7 % Eosinophils % 4 % Basophils % 1 % Neutrophils # 4.5 (1.3-7.7) k/uL Lymphocytes # 3.6 (1.0-4.8) k/uL Monocytes # 0.7 (0-1.0) k/uL Eosinophils # 0.4 (0-0.7) k/uL Basophils # 0.1 (0-0.2) k/uL PT (9.0-12.0) sec INR (<1.2) APTT (22.0-30.0) sec Sodium 145 (137-145) mmol/L Potassium 3.7 (3.5-5.1) mmol/L Chloride 105 (98-107) mmol/L Carbon Dioxide 24 (22-30) mmol/L Anion Gap 16 mmol/L BUN 31 H (9-20) mg/dL Creatinine 1.34 H (0.66-1.25) mg/dL Est GFR (CKD-EPI)AfAm 72 (>60 ml/min/1.73 sqM) Est GFR (CKD-EPI)NonAf 63 (>60 ml/min/1.73 sqM) Glucose 114 H (74-99) mg/dL Calcium 9.1 (8.4-10.2) mg/dL Magnesium 2.1 (1.6-2.3) mg/dL Total Bilirubin 0.6 (0.2-1.3) mg/dL AST 26 (17-59) U/L ALT 46 (21-72) U/L Alkaline Phosphatase 65 (38-126) U/L Total Creatine Kinase 191 H (55-170) U/L CK-MB (CK-2) 1.3 (0.0-2.4) ng/mL CK-MB (CK-2) Rel Index 0.7 Troponin I <0.012 (0.000-0.034) ng/mL Total Protein 7.8 (6.3-8.2) g/dL Albumin 4.9 (3.5-5.0) g/dL 11/24/17 Range/Units 05:13 WBC (3.8-10.6) k/uL RBC (4.30-5.90) m/uL Hgb (13.0-17.5) gm/dL Hct (39.0-53.0) % MCV (80.0-100.0) fL MCH (25.0-35.0) pg MCHC (31.0-37.0) g/dL RDW (11.5-15.5) % Plt Count (150-450) k/uL Neutrophils % % Lymphocytes % % Monocytes % % Eosinophils % % Basophils % % Neutrophils # (1.3-7.7) k/uL Lymphocytes # (1.0-4.8) k/uL Monocytes # (0-1.0) k/uL Eosinophils # (0-0.7) k/uL Basophils # (0-0.2) k/uL PT 10.6 (9.0-12.0) sec INR 1.1 (<1.2) APTT 24.3 (22.0-30.0) sec Sodium (137-145) mmol/L Potassium (3.5-5.1) mmol/L Chloride (98-107) mmol/L Carbon Dioxide (22-30) mmol/L Anion Gap mmol/L BUN (9-20) mg/dL Creatinine (0.66-1.25) mg/dL Est GFR (CKD-EPI)AfAm (>60 ml/min/1.73 sqM) Est GFR (CKD-EPI)NonAf (>60 ml/min/1.73 sqM) Glucose (74-99) mg/dL Calcium (8.4-10.2) mg/dL Magnesium (1.6-2.3) mg/dL Total Bilirubin (0.2-1.3) mg/dL AST (17-59) U/L ALT (21-72) U/L Alkaline Phosphatase (38-126) U/L Total Creatine Kinase (55-170) U/L CK-MB (CK-2) (0.0-2.4) ng/mL CK-MB (CK-2) Rel Index Troponin I (0.000-0.034) ng/mL Total Protein (6.3-8.2) g/dL Albumin (3.5-5.0) g/dL Disposition Clinical Impression: Atrial fibrillation Disposition: HOME SELF-CARE Condition: Good Instructions: Palpitations (ED), A-fib (Atrial Fibrillation) (ED) Is patient prescribed a controlled substance at d/c from ED?: No Referrals: Anne Hinkle DO [Primary Care Provider] - 1-2 days Mark Gardiner MD [STAFF PHYSICIAN] - 1-2 days Time of Disposition: 06:02
[2017-11-24 05:31] LABS: INR 1.1 (<1.2); Partial Thromboplastin Time 24.3 sec (22.0-30.0); Prothrombin Time 10.6 sec (9.0-12.0)
[2017-11-24 05:32] LABS: Albumin 4.9 g/dL (3.5-5.0); Calcium 9.1 mg/dL (8.4-10.2); Magnesium 2.1 mg/dL (1.6-2.3); Potassium 3.7 mmol/L (3.5-5.1); Total Bilirubin 0.6 mg/dL (0.2-1.3); Total Protein 7.8 g/dL (6.3-8.2)
[2017-11-24 05:42] LABS: Creatine Kinase 191 U/L (55-170)
[2017-11-24 05:55] LABS: Creatine Kinase MB 1.3 ng/mL (0.0-2.4); Troponin I <0.012 ng/mL (0.000-0.034)
[2017-11-24 06:21] VITALS: BP 145/72; PULSE 84; RESP 20; TEMP 98
== END 2017-11-24 06:21 | disposition home or self-care (01) ==
LOC: EC 04:57 → SUPCPDRO 04:57 → EC 06:21
DX: I48.91 Unspecified atrial fibrillation (principal); I10 Essential (primary) hypertension; Z87.891 Personal history of nicotine dependence; Z88.0 Allergy status to penicillin
CPT/HCPCS: 36415; 80053; 82550; 82553; 83735; 84484; 85025; 85610; 85730; 93005; 96360; 99285

== ENCOUNTER → 2018-02-19 | Outpatient (CLI) | payer BC ==
--- NOTE | 2018-02-19 23:42 | CONS ---
CONSULTATION This is a consultation note for sleep apnea. This is a 47-year-old male patient was referred to me for sleep apnea evaluation. The patient having episodes of atrial fibrillation and on 3 separate occasions, the patient woken up from sleep with fatigue, tiredness and palpitations and tachycardia and he was found to be in atrial fibrillation. On 2 of these occasions, he was hospitalized. Currently back in normal sinus rhythm. He is being seen by Cardiology. He was found to have hypertensive heart disease related to chronic hypertension. He is referred to me for sleep apnea evaluation. Clinically he has loud snoring. He falls asleep during the day as the patient is fatigued and tired. He goes to bed around 9:30 p.m., wakes up at 5:30 a.m. in the morning. He does not have a bed partner. He lives with his 11- year-old son at home. No substance abuse. No alcoholism. No sleep paralysis, hallucinations or cataplexy Savannah Score is at 17. No signs of any congestive heart failure. PAST MEDICAL HISTORY: Hypertension, epilepsy and hypertensive heart disease. PAST SURGICAL HISTORY: None. DRUG ALLERGIES: Not known. OUTPATIENT MEDICATION LIST: Includes Eliquis, Norvasc and benazepril. SOCIAL HISTORY: The patient is a nonsmoker. No use of alcohol. No history of IV drugs. He smokes marijuana occasionally. FAMILY HISTORY: Negative for sleep apnea. REVIEW OF SYSTEMS: 12-point review of system was done. Negative for insomnia. Negative for nocturia. Negative for any grinding of the teeth. No anxiety or panic attacks. No palpitation. No heartburn. No restlessness in the lower extremities. No sleep talking or sleep walking. No sweating. No anxiety. No claustrophobia. No sexual dysfunction. No depression. PHYSICAL EXAMINATION: BP is 136/86, pulse is 80, respirations 16, temperature 97.7. Saturation 96% on room air. Weight is 237. Height is 6 feet 1 inch. Savannah score 17. BMI 31.2. Neck size 16.5 inches. General appearance: Calm, comfortable. Head is atraumatic, normocephalic. Neck is short, supple: Mallampati class IV. There is no goiter or neck masses. LUNGS: Clear to auscultation. HEART: Sounds regular rate and rhythm. Normal S1, S2. No S3, S4. No murmurs. ABDOMEN: Soft, nontender. No organomegaly. EXTREMITIES: No edema. No cyanosis or clubbing. IMPRESSION: 1. Paroxysmal atrial fibrillation. The patient had 3 episodes of atrial fibrillation occurring mainly at nighttime while sleeping. Rule out underlying obstructive sleep apnea. 2. Chronic excessive hypersomnia Savannah score of 17. 3. Hypertension. 4. Hypertensive heart disease. 5. History of epilepsy. PLAN: We are going to proceed with a home sleep study. Ideally I would like to have a PSG as the patient has some family issues where he is unable to leave his 11-year-old boy at home alone. Based on that, I decided to proceed with a home sleep study to assess for any significant sleep breathing disorder that can contribute to patient's obstructive sleep apnea. We will see him back in followup and discuss the results once the home sleep study completed. FINA / SALUD: [id number] /
== END | disposition home or self-care (01) ==
LOC: SLEEP 14:42
PROVIDERS: ATTEND Internal Medicine Critical Care Medicine
DX: G47.10 Hypersomnia, unspecified (principal); I10 Essential (primary) hypertension; I48.0 Paroxysmal atrial fibrillation; I11.9 Hypertensive heart disease without heart failure; Z86.69 Personal history of other diseases of the nervous system and sense organs; F12.20 Cannabis dependence, uncomplicated; Z79.01 Long term (current) use of anticoagulants; Z79.899 Other long term (current) drug therapy
CPT/HCPCS: 99211

== ENCOUNTER → 2018-11-01 | Outpatient (CLI) | payer BC ==
--- NOTE | 2018-11-01 22:11 | MR ---
EXAMINATION TYPE: MR thoracic spine wo con DATE OF EXAM: 11/01/2018 9:16 PM COMPARISON: NONE HISTORY: Pain in thoracic spine Multiplanar MultiSpin echo imaging of the thoracic spine was performed. Disc spaces: Mild disc desiccation and disc bulging at T7-8 and to a lesser extent T8-9. No aidan dis c herniation. No central stenosis. Spinal canal: No evidence for canal stenosis. No intrinsic or extrinsic lesion. Thoracic spinal cord: Thoracic spinal cord is of normal caliber and signal. Paraspinal soft tissues: No evidence for paraspinal mass. No destructive lesions seen. Vertebral segments: Scattered ventral spondylosis. Degenerative endplate marrow change noted. IMPRESSION: 1. Degenerative disc disease and disc bulging as noted above mild in degree. Ventral spondylosis.
== END | disposition home or self-care (01) ==
LOC: RADMRIMAIN 20:24
PROVIDERS: ATTEND Internal Medicine
DX: M51.24 Other intervertebral disc displacement, thoracic region (principal); M51.34 Other intervertebral disc degeneration, thoracic region; M47.814 Spondylosis without myelopathy or radiculopathy, thoracic region
CPT/HCPCS: 72146

== ENCOUNTER 2018-12-31 07:01 | Observation (INO) | payer BC ==
[2018-12-31] MEDS ORDERED: ASPIRIN 81 MG PO STA (07:29)
[2018-12-31] MEDS ORDERED: HEPARIN SODIUM,PORCINE 10,000 UNIT/ML 1 ML VIAL IV STA (07:29)
[2018-12-31] MEDS ORDERED: DILTIAZEM DRIP BOLUS FROM BAG 1 MG SOLN IV ONE (07:29)
[2018-12-31] MEDS ORDERED: HEPARIN SOD,PORK IN 0.45% NACL 25,000 UNIT in 0.45% NACL 1 250ML.BAG IV SCH (07:30)
--- NOTE | 2018-12-31 07:38 | ED ---
Arrhythmia/Palpitations HPI - General Chief Complaint: Arrhythmia/Palpitations Stated Complaint: afib Time Seen by Provider: 12/31/18 07:15 Source: patient, RN notes reviewed Mode of arrival: wheelchair Limitations: no limitations - History of Present Illness Initial Comments: This is a 48-year-old male with a prior history of atrial fibrillation who is on amlodipine for blood pressure also on Eliquis who states he woke up this morning in no severe his heart was irregular he had lightheadedness breath with it no overt chest pain. No nausea vomiting reported. He states he had very stressful day yesterday. He denies any recent alcohol use but he does state he drinks about 4 cups of coffee every day he has not had any today he had 4 yesterday mo rning. He states also that his been out of his Eliquis for about 3 days. He also states a new girlfriend stayed with him last night. No chest pain again no fevers chills or sweats. No abdominal pain no headache blurry vision or loss of function to his upper or lower extremities. MD Complaint: palpitations, atrial fibrillation - Related Data Home Medications Medication Instructions Recorded Confirmed Multivit-Min/FA/Lycopen/Lutein 1 tab PO DAILY 11/20/17 12/31/18 [Centrum Silver Men Tablet] Apixaban [Eliquis] 5 mg PO DAILY 12/31/18 12/31/18 amLODIPine BESYLATE/BENAZEPRIL 1 cap PO DAILY 12/31/18 12/31/18 [Lotrel 10-20 MG] Previous Rx's Medication Instructions Recorded Nitroglycerin Sl Tabs [Nitrostat] 0.4 mg SUBLINGUAL Q5M PRN #100 tab 11/21/17 Allergies Allergy/AdvReac Type Severity Reaction Status Date / Time Penicillins Allergy Fever Verified 12/31/18 08:13 Review of Systems ROS Statement: Those systems with pertinent positive or pertinent negative responses have been documented in the HPI. ROS Other: All systems not noted in ROS Statement are negative. Past Medical History Past Medical History: Atrial Fibrillation, Hypertension Additional Past Medical History / Comment(s): hernia History of Any Multi-Drug Resistant Organisms: None Reported Past Surgical History: Hernia Repair Additional Past Surgical History / Comment(s): hand, Past Anesthesia/Blood Transfusion Reactions: No Reported Reaction Past Psychological History: No Psychological Hx Reported Smoking Status: Former smoker Past Alcohol Use History: Occasional Past Drug Use History: Marijuana - Past Family History Family Additional Family Medical History / Comment(s): Reports strong family history of heart disease, lung cancer General Exam - General Exam Comments Initial Comments: This is a well-developed well-nourished awake alert oriented times 3 male Limitations: no limitations General appearance: alert, anxious Head exam: Present: atraumatic, normocephalic, normal inspection Eye exam: Present: normal appearance, PERRL, EOMI. Absent: scleral icterus, conjunctival injection, periorbital swelling ENT exam: Present: normal exam, mucous membranes moist Neck exam: Present: normal inspection. Absent: tenderness, meningismus, lymphadenopathy Respiratory exam: Present: normal lung sounds bilaterally. Absent: respiratory distress, wheezes, rales, rhonchi, stridor Cardiovascular Exam: Present: tachycardia, irregular rhythm. Absent: systolic murmur, diastolic murmur, rubs, gallop, clicks GI/Abdominal exam: Present: soft, normal bowel sounds. Absent: distended, tenderness, guarding, rebound, rigid Extremities exam: Present: normal inspection, full ROM, normal capillary refill. Absent: tenderness, pedal edema, joint swelling, calf tenderness Back exam: Present: normal inspection Neurological exam: Present: alert, oriented X3, CN II-XII intact Psychiatric exam: Present: normal affect, normal mood Skin exam: Present: warm, dry, intact, normal color. Absent: rash Course Vital Signs 12/31/18 12/31/18 12/31/18 07:07 08:09 09:00 Temperature 98.4 F Pulse Rate 88 89 82 Respiratory 18 16 16 Rate Blood Pressure 132/98 137/96 135/89 O2 Sat by Pulse 99 99 Oximetry 12/31/18 10:03 Temperature Pulse Rate 73 Respiratory 16 Rate Blood Pressure 122/85 O2 Sat by Pulse 98 Oximetry - Reevaluation(s) Reevaluation #1: 12/31/18 07:38 surveillance monitor: surveillance monitor ordered due to the patient's suspected atrial fibrillation I did review this at bedside. Heart rate. Between 08/16/2018 [place] evaluation. Consistent with atrial fibrillation with a rapid ventricular response. Reevaluation #2: 12/31/18 07:40 EKG was compared with one dated 11/24/17 which is show similar QRST configuration Reevaluation #3: 12/31/18 10:32 Reevaluation patient is heart rate is improved he still in atrial fibrillation. EKG Findings - EKG Results: EKG: interpreted by ERMD (Atrial fibrillation rate at this time was 98 QRS 96 QT since QTC 364/464 nonspecific anterior configuration) Medical Decision Making - Medical Decision Making Patient is still remains in atrial fibrillation though his rate is improved the. I did discuss patient's case with him as well as his family and admitting physician Dr. Perez. Patient be admitted with cardiology consultation - Lab Data Result diagrams: 12/31/18 07:22 12/31/18 07:22 Lab Results 12/31/18 12/31/18 12/31/18 Range/Units 07:22 07:22 07:22 WBC 7.4 (3.8-10.6) k/uL RBC 5.44 (4.30-5.90) m/uL Hgb 16.3 (13.0-17.5) gm/dL Hct 47.9 (39.0-53.0) % MCV 87.9 (80.0-100.0) fL MCH 30.0 (25.0-35.0) pg MCHC 34.1 (31.0-37.0) g/dL RDW 13.1 (11.5-15.5) % Plt Count 205 (150-450) k/uL Neutrophils % 58 % Lymphocytes % 24 % Monocytes % 9 % Eosinophils % 5 % Basophils % 1 % Neutrophils # 4.4 (1.3-7.7) k/uL Lymphocytes # 1.8 (1.0-4.8) k/uL Monocytes # 0.7 (0-1.0) k/uL Eosinophils # 0.4 (0-0.7) k/uL Basophils # 0.1 (0-0.2) k/uL PT 10.6 (9.0-12.0) sec INR 1.0 (<1.2) APTT 23.8 (22.0-30.0) sec Sodium 142 (137-145) mmol/L Potassium 3.9 (3.5-5.1) mmol/L Chloride 108 H (98-107) mmol/L Carbon Dioxide 23 (22-30) mmol/L Anion Gap 11 mmol/L BUN 20 (9-20) mg/dL Creatinine 0.76 (0.66-1.25) mg/dL Est GFR (CKD-EPI)AfAm >90 (>60 ml/min/1.73 sqM) Est GFR (CKD-EPI)NonAf >90 (>60 ml/min/1.73 sqM) Glucose 135 H (74-99) mg/dL Calcium 9.0 (8.4-10.2) mg/dL Magnesium 2.0 (1.6-2.3) mg/dL Total Bilirubin 0.7 (0.2-1.3) mg/dL AST 31 (17-59) U/L ALT 37 (21-72) U/L Alkaline Phosphatase 58 (38-126) U/L Creatine Kinase 469 H (55-170) U/L Troponin I (0.000-0.034) ng/mL Total Protein 7.8 (6.3-8.2) g/dL Albumin 4.8 (3.5-5.0) g/dL 12/31/18 Range/Units 07:22 WBC (3.8-10.6) k/uL RBC (4.30-5.90) m/uL Hgb (13.0-17.5) gm/dL Hct (39.0-53.0) % MCV (80.0-100.0) fL MCH (25.0-35.0) pg MCHC (31.0-37.0) g/dL RDW (11.5-15.5) % Plt Count (150-450) k/uL Neutrophils % % Lymphocytes % % Monocytes % % Eosinophils % % Basophils % % Neutrophils # (1.3-7.7) k/uL Lymphocytes # (1.0-4.8) k/uL Monocytes # (0-1.0) k/uL Eosinophils # (0-0.7) k/uL Basophils # (0-0.2) k/uL PT (9.0-12.0) sec INR (<1.2) APTT (22.0-30.0) sec Sodium (137-145) mmol/L Potassium (3.5-5.1) mmol/L Chloride (98-107) mmol/L Carbon Dioxide (22-30) mmol/L Anion Gap mmol/L BUN (9-20) mg/dL Creatinine (0.66-1.25) mg/dL Est GFR (CKD-EPI)AfAm (>60 ml/min/1.73 sqM) Est GFR (CKD-EPI)NonAf (>60 ml/min/1.73 sqM) Glucose (74-99) mg/dL Calcium (8.4-10.2) mg/dL Magnesium (1.6-2.3) mg/dL Total Bilirubin (0.2-1.3) mg/dL AST (17-59) U/L ALT (21-72) U/L Alkaline Phosphatase (38-126) U/L Creatine Kinase (55-170) U/L Troponin I <0.012 (0.000-0.034) ng/mL Total Protein (6.3-8.2) g/dL Albumin (3.5-5.0) g/dL - Radiology Data Radiology results: report reviewed (I did review the imaging and report no acute findings.), image reviewed Critical Care Time Critical Care Time: Yes Critical Care Time: 31 minutes of critical care time which includes initial presentation with history physical labs x-rays multiple re-evaluations patient response to therapy discussed with patient family regarding his findings discussion with the admitting physician review of old charting that was available admission orders and documentation of the above Disposition Clinical Impression: Rapid atrial fibrillation Disposition: ADMITTED IP TO THIS [facility] Condition: Fair Referrals: Birgit Hampton MD [Primary Care Provider] - 1-2 days
[2018-12-31 07:45] LABS: Basophils # (A) 0.1 k/uL (0-0.2); Basophils % (A) 1 %; Eosinophils # (A) 0.4 k/uL (0-0.7); Eosinophils % (A) 5 %; HCT 47.9 % (39.0-53.0); HGB 16.3 gm/dL (13.0-17.5); Lymphocytes # (A) 1.8 k/uL (1.0-4.8); Lymphocytes % (A) 24 %; MCHC 34.1 g/dL (31.0-37.0); MCV 87.9 fL (80.0-100.0); Mean Platelet Volume 7.1; Monocytes # (A) 0.7 k/uL (0-1.0); Monocytes % (A) 9 %; Neutrophils # (A) 4.4 k/uL (1.3-7.7); Neutrophils % (A) 58 %; Platelet Count 205 k/uL (150-450); RBC 5.44 m/uL (4.30-5.90); RDW 13.1 % (11.5-15.5); WBC 7.4 k/uL (3.8-10.6)
[2018-12-31 07:53] LABS: ALT 37 U/L (21-72); AST 31 U/L (17-59); African American GFR (CKD) >90 (>60 ml/min/1.73 sqM); Albumin 4.8 g/dL (3.5-5.0); Alkaline Phosphatase 58 U/L (38-126); Anion Gap 11 mmol/L; Blood Urea Nitrogen 20 mg/dL (9-20); Carbon Dioxide 23 mmol/L (22-30); Chloride 108 mmol/L (98-107); Creatine Kinase 469 U/L (55-170); Glucose 135 mg/dL (74-99); Partial Thromboplastin Time 23.8 sec (22.0-30.0); Potassium 3.9 mmol/L (3.5-5.1); Prothrombin Time 10.6 sec (9.0-12.0); Sodium 142 mmol/L (137-145); Total Bilirubin 0.7 mg/dL (0.2-1.3); Total Protein 7.8 g/dL (6.3-8.2)
[2018-12-31] MEDS: SODIUM CHLORIDE 0.9% 500 ML 500 ML IV SCH (08:00)
[2018-12-31] MEDS: DILTIAZEM 125 MG in SODIUM CHLORIDE 0.9% 100 ML IV SCH (08:05)
--- NOTE | 2018-12-31 08:05 | XR ---
EXAMINATION TYPE: XR chest 2V DATE OF EXAM: 12/31/2018 COMPARISON: Chest x-ray November 2017. HISTORY: Dysrhythmia. TECHNIQUE: Frontal and lateral views of the chest are obtained. FINDINGS: Overlying EKG leads are redemonstrated. There is chronic parenchymal change without suspici ous focal air space opacity, pleural effusion, or pneumothorax seen. The cardiac silhouette size is stable and within normal limits. The osseous structures are intact. IMPRESSION: Chronic changes without acute pulmonary process.
[2018-12-31] MEDS ORDERED: ACETAMINOPHEN TAB 325 MG TAB PO PRN (10:35)
[2018-12-31] MEDS ORDERED: NALOXONE 0.4 MG/ML 1 ML VIAL IV PRN (10:35)
[2018-12-31] MEDS ORDERED: NITROGLYCERIN SL TABS 0.4 MG TAB SUBLINGUAL PRN (10:39)
[2018-12-31] MEDS: APIXABAN 5 MG TAB PO SCH (16:35)
--- NOTE | 2018-12-31 20:03 | P.HPIM ---
History of Present Illness H&P Date: 12/31/18 Chief Complaint: Dizziness Patient is a 48-year-old male with a known history of hypertension, atrial fibrillation on anticoagulation with Eliquis came to ER with the complaints of dizziness and lightheadedness. Patient says that she woke up from bed this morning and since then she's been having dizziness and also felt lightheadedness and about to fall. No complaints of chest pain. No nausea vomiting or abdominal pain or diarrhea. Patient says that sometimes he does drink alcohol in the weekends. Last alcohol use was 2 days ago. Denied any history of withdrawal symptoms. Patient also takes 4 cups of coffee everyday. Patient is out of Eliquis tablets and has not been taking for the past 3-4 days. Denied any fever or chills. No headache or blurry vision. Denied any leg swelling. Patient came to ER for further evaluation. Patient was started on Cardizem drip and heparin drip. Cardiology was consulted. EKG showed atrial fibrillation with rapid ventricular rate Chest x-ray showed no acute cardio pulmonary process. Review of Systems Constitutional: Patient denies any fever or chills . No generalized weakness or weight loss. Abdomen: Patient denied nausea vomiting and diarrhea and abdominal pain. Cardiovascular: Patient denies any chest pain or short of breath no palpitations. Dizziness and lightheadedness. Respiratory: patient denied any cough is from production. No shortness of breath Neurologic: Patient denied any numbness or tingling headache. Musculoskeletal: Patient denies any complaints of joint swelling or deformity. Skin: Negative Psychiatric: Negative Endocrine: No heat or cold intolerance. No recent weight gain. Genitourinary: No dysuria or hematuria. All other 14 point ROS negative except the above Past Medical History Past Medical History: Atrial Fibrillation, Hypertension Additional Past Medical History / Comment(s): hernia History of Any Multi-Drug Resistant Organisms: None Reported Past Surgical History: Hernia Repair Additional Past Surgical History / Comment(s): hand, Past Anesthesia/Blood Transfusion Reactions: No Reported Reaction Past Psychological History: No Psychological Hx Reported Smoking Status: Former smoker Past Alcohol Use History: Occasional Past Drug Use History: Marijuana - Past Family History Family Additional Family Medical History / Comment(s): Reports strong family history of heart disease, lung cancer Mother Family Medical History: COPD Additional Family Medical History / Comment(s): Mother of emphysema. She was a smoker. Father History Unknown: Yes Medications and Allergies Home Medications Medication Instructions Recorded Confirmed Type Multivit-Min/FA/Lycopen/Lutein 1 tab PO DAILY 11/20/17 12/31/18 History [Centrum Silver Men Tablet] Nitroglycerin Sl Tabs [Nitrostat] 0.4 mg SUBLINGUAL Q5M PRN #100 tab 11/21/17 12/31/18 Rx Apixaban [Eliquis] 5 mg PO DAILY 12/31/18 12/31/18 History amLODIPine BESYLATE/BENAZEPRIL 1 cap PO DAILY 12/31/18 12/31/18 History [Lotrel 10-20 MG] Allergies Allergy/AdvReac Type Severity Reaction Status Date / Time Penicillins Allergy Fever Verified 12/31/18 08:13 Physical Exam Vitals: Vital Signs Temp Pulse Pulse Resp BP BP Pulse Ox 12/31/18 12:00 98.0 F 77 18 126/96 97 12/31/18 10:03 73 16 122/85 98 12/31/18 09:00 82 16 135/89 99 12/31/18 08:09 89 16 137/96 12/31/18 07:07 98.4 F 88 18 132/98 99 Intake and Output 12/30/18 12/31/18 12/31/18 22:59 06:59 14:59 Other: Weight 105.233 kg PHYSICAL EXAMINATION: Patient is lying in the bed comfortably, no acute distress, awake alert and oriented.. HEENT: Normocephalic. Neck is supple. Pupils reactive. Nostrils clear. Oral cavity is moist. Ears reveal no drainage. Neck reveals no JVD, carotid bruits, or thyromegaly. CHEST EXAMINATION: Trachea is central. Symmetrical expansion. Lung ash clear to auscultation and percussion. CARDIAC: Normal S1, S2 with no gallops. No murmurs ABDOMEN: Soft. Bowel sounds normal. No organomegaly. No abdominal bruits. Extremities: reveal no edema. No clubbing or cyanosis Neurologically awake, alert, oriented x3 with well-coordinated movements. No focal deficits noted Skin: No rash or skin lesions. Psychiatric: Coperative. Nonsuicidal Musculoskeletal: No joint swelling or deformity. Normal range of motion. Results CBC & Chem 7: 12/31/18 07:22 12/31/18 07:22 Labs: Abnormal Lab Results - Last 24 Hours (Table) 12/31/18 Range/Units 07:22 Chloride 108 H (98-107) mmol/L Glucose 135 H (74-99) mg/dL Creatine Kinase 469 H (55-170) U/L Thrombosis Risk Factor Assmnt - DVT/VTE Prophylaxis DVT/VTE Prophylaxis: Pharmacologic Prophylaxis ordered Assessment and Plan Assessment: Atrial fibrillation with rapid ventricular rate on admission. Paroxysmal atrial fibrillation on anticoagulation with Eliquis. Mild rhabdomyolysis with CPK level 469 Occasional alcohol use Heavy caffeine intake with 4 cups of coffee daily. Hypertension Plan: Patient will be continued on telemetry monitoring. Continue with Cardizem drip to titrate the HR below 90. Heparin drip will be changed to Eliquis by mouth. Cardiology was consulted. Continue with home medications. Gentle hydration with normal saline. Further recommendations based on the clinical course. Time with Patient: Greater than 30
[2019-01-01] MEDS: SODIUM CHLORIDE 0.9% 500 ML 500 ML IV SCH ×2 (08:12→11:23)
[2019-01-01] MEDS: DILTIAZEM 125 MG in SODIUM CHLORIDE 0.9% 100 ML IV SCH (08:12)
[2019-01-01] MEDS: APIXABAN 5 MG TAB PO SCH (08:13)
[2019-01-01] MEDS ORDERED: BENAZEPRIL PO SCH (09:00)
[2019-01-01] MEDS ORDERED: LISINOPRIL 20 MG TAB PO SCH (09:00)
[2019-01-01] MEDS ORDERED: AMLODIPINE BESYLATE PO SCH (09:00)
[2019-01-01] MEDS ORDERED: amLODIPine 10 MG TAB PO SCH (09:00)
[2019-01-01] MEDS ORDERED: MULTIVITAMINS, THERA 1 EACH TAB PO SCH (09:00)
[2019-01-01 10:23] VITALS: RESP 18
--- NOTE | 2019-01-01 11:22 | P.CRDCN ---
History of Present Illness Consult date: 01/01/19 History of present illness: This is a 48-year-old gentleman with history of alcohol and marijuana use and also a previous history of atrial fibrillation who is admitted again with complaints of palpitations and recurrence of atrial fibrillation. Patient also claims that he had sleep apnea. He was recommended to have CPAP but patient could not afford it. Patient was supposed to take anticoagulation therapy in the form eliquis 5 mg by mouth twice daily. Patient was taking only once a day and apparently stopped about a week ago. Patient came in mainly with complaints of dizziness and palpitations and was found to be in atrial fibrillation with a rapid ventricular response. Patient is initiated on IV Cardizem. Patient is continued on atelectasis once daily. Patient is rate is controlled and is feeling better. His echocardiogram during last admission showed an ejection fraction of 45-50%. We will repeat the echocardiogram. We will switch to by mouth metoprolol and then probably discontinue IV Cardizem. We'll also put him back on an echo is 5 mg by mouth twice a day. If the patient is stable with controlled heart rate, patient could be discharged home on combination of metoprolol and anticoagulation therapy. Outpatient cardioversion may be con sidered in 4-6 weeks. Patient is strongly advised to quit smoking marijuana and also drinking alcohol. Past Medical History Past Medical History: Atrial Fibrillation, Hypertension Additional Past Medical History / Comment(s): hernia History of Any Multi-Drug Resistant Organisms: None Reported Past Surgical History: Hernia Repair Additional Past Surgical History / Comment(s): hand, Past Anesthesia/Blood Transfusion Reactions: No Reported Reaction Past Psychological History: No Psychological Hx Reported Smoking Status: Former smoker Past Alcohol Use History: Occasional Past Drug Use History: Marijuana - Past Family History Mother Family Medical History: COPD Additional Family Medical History / Comment(s): Mother of emphysema. She was a smoker. Father History Unknown: Yes Family Additional Family Medical History / Comment(s): Reports strong family history of heart disease, lung cancer Medications and Allergies Home Medications Medication Instructions Recorded Confirmed Type Multivit-Min/FA/Lycopen/Lutein 1 tab PO DAILY 11/20/17 12/31/18 History [Centrum Silver Men Tablet] Nitroglycerin Sl Tabs [Nitrostat] 0.4 mg SUBLINGUAL Q5M PRN #100 tab 11/21/17 12/31/18 Rx Apixaban [Eliquis] 5 mg PO DAILY 12/31/18 12/31/18 History amLODIPine BESYLATE/BENAZEPRIL 1 cap PO DAILY 12/31/18 12/31/18 History [Lotrel 10-20 MG] Allergies Allergy/AdvReac Type Severity Reaction Status Date / Time Penicillins Allergy Fever Verified 12/31/18 08:13 Physical Exam Vitals: Vital Signs Temp Pulse Resp BP Pulse Ox 01/01/19 08:00 97.1 F L 89 18 149/81 96 01/01/19 04:00 97.9 F 75 16 108/74 95 01/01/19 00:13 98.4 F 74 16 112/77 94 L 12/31/18 20:00 98.5 F 81 16 142/89 96 12/31/18 15:20 68 18 12/31/18 15:14 98.6 F 68 18 131/81 95 12/31/18 12:00 98.0 F 77 18 126/96 97 Intake and Output 12/31/18 01/01/19 01/01/19 22:59 06:59 14:59 Intake Total 480.583 Balance 480.583 Intake: Intake, IV Titration 120.583 Amount Diltiazem 125 mg In 120.583 Sodium Chloride 0.9% 100 ml @ 5 MG/HR 5 mls/hr IV .Q24H [facility] Rx#:[id number] Oral 360 Other: # Voids 1 1 1 Weight 101.1 kg GENERAL EXAM: Patient is alert and oriented and doesn't appear to be in any acute distress HEENT: Normocephalic. Normal reaction of pupils, equal size, normal range of extraocular motion. No erythema or exudates in the throat. NECK: No masses, no nuchal rigidity. CHEST: No chest wall deformity. LUNGS: Equal air entry with no crackles or wheeze. HEART: S1 and S2 normal. Irregular heart rhythm ABDOMEN: No hepatosplenomegaly, normal bowel sounds, no guarding or rigidity. SKIN: No rashes CENTRAL NERVOUS SYSTEM: No focal deficits. EXTREMITIES: No cyanosis, clubbing or edema. Results 12/31/18 07:22 12/31/18 07:22 Coagulation 12/31/18 Range/Units 14:42 APTT 26.8 (22.0-30.0) sec Current Medications Generic Name Dose Route Start Last Admin Trade Name Freq PRN Reason Stop Dose Admin Acetaminophen 650 mg 12/31/18 10:35 Tylenol Tab PO Q6HR PRN Mild Pain or Fever > 100.5 Amlodipine Besylate 10 mg 01/01/19 09:00 01/01/19 08:13 Norvasc PO 10 mg DAILY ULISES Administration Apixaban 5 mg 01/01/19 21:00 Eliquis PO BID ULISES Diltiazem HCl 125 mg/ Sodium 125 mls @ 5 mls/hr 12/31/18 07:30 01/01/19 08:12 Chloride IV 5 mg/hr .Q24H ULISES 5 mls/hr Administration 5 MG/HR Sodium Chloride 500 mls @ 75 mls/hr 12/31/18 08:15 01/01/19 08:12 Saline 0.9% IV 75 mls/hr .Q6H40M ULISES Administration Lisinopril 20 mg 01/01/19 09:00 01/01/19 08:12 Zestril PO 20 mg DAILY ULISES Administration Metoprolol Tartrate 50 mg 01/01/19 21:00 Lopressor PO BID ULISES Multivitamins 1 each 01/01/19 09:00 01/01/19 08:12 Theragran PO 1 each DAILY ULISES Administration Naloxone HCl 0.2 mg 12/31/18 10:35 Narcan IV Q2M PRN Opioid Reversal Nitroglycerin 0.4 mg 12/31/18 10:39 Nitrostat SUBLINGUAL Q5M PRN Chest Pain Intake and Output 12/31/18 01/01/19 01/01/19 22:59 06:59 14:59 Intake Total 480.583 Balance 480.583 Intake: Intake, IV Titration 120.583 Amount Diltiazem 125 mg In 120.583 Sodium Chloride 0.9% 100 ml @ 5 MG/HR 5 mls/hr IV .Q24H [facility]IS[facility] Rx#:[id number] Oral 360 Other: # Voids 1 1 1 Weight 101.1 kg 12/31/18 07:22 12/31/18 07:22 EKG Interpretations (text) Atrial fibrillation with rapid ventricular response Assessment and Plan (1) Persistent atrial fibrillation Current Visit: Yes Status: Acute Code(s): I48.1 - PERSISTENT ATRIAL FIBRILLATION SNOMED Code(s): 395667209 (2) Alcohol abuse Current Visit: Yes Status: Acute Code(s): F10.10 - ALCOHOL ABUSE, UNCOMPLICATED SNOMED Code(s): 25239144 (3) Hypertension Current Visit: No Status: Chronic Code(s): I10 - ESSENTIAL (PRIMARY) HYPERTENSION SNOMED Code(s): 59799905 Plan: Start patient on by mouth metoprolol and discontinue IV Cardizem. Increase the anticoagulation therapy to 5 mg of Eliquis twice daily. Increase activity. Hip heart rate is controlled, patient could be discharged home. Echo Doppler to be done. We'll consider cardioversion in 4 weeks
[2019-01-01 11:52] VITALS: BP 140/101; PULSE 75; TEMP 96.5
[2019-01-01] MEDS ORDERED: METOPROLOL TARTRATE 50 MG TAB PO SCH ×2 (14:12→21:00)
[2019-01-01] MEDS ORDERED: APIXABAN 5 MG TAB PO SCH (21:00)
--- NOTE | 2019-01-02 08:34 | ECHOF ---
Referral Reason:Chest pain and cardiomyopathy MEASUREMENTS -------- HEIGHT: 190.5 cm WEIGHT: 100.7 kg BP: 149/81 RVIDd: 3.4 cm (< 3.3) IVSd: 1.4 cm (0.6 - 1.1) LVIDd: 5.7 cm (3.9 - 5.3) LVPWd: 1.2 cm (0.6 - 1.1) IVSs: 1.8 cm LVIDs: 3.4 cm LVPWs: 2.2 cm Ao Diam: 3.9 cm (2.0 - 3.7) AV Cusp: 3.8 cm (1.5 - 2.6) LA Diam: 2.5 cm (2.7 - 3.8) MV EXCURSION: 13.991 mm (> 18.000) MV EF SLOPE: 104 mm/s (70 - 150) EPSS: 1.1 cm MV E Juan: 0.80 m/s MV DecT: 293 ms MV A Juan: 0.66 m/s MV E/A Ratio: 1.25 FINDINGS -------- Sinus rhythm. This was a technically good study. Study performed by [facility], RVT The left ventricle is mildly dilated. There is mild concentric left ventricular hypertrophy. Ther e is normal global left ventricular contractility. Overall left ventricular systolic function is no rmal with, an EF between 55 - 60 %. The right ventricle is normal in size. The left atrium is normal in size. The right atrial size is normal. The aortic valve is trileaflet, and appears structurally normal. No aortic stenosis or regurgitation. The mitral valve is normal. Mild mitral regurgitation is present. The tricuspid valve appears structurally normal. Mild tricuspid regurgitation present. Trace/mild (physiologic) pulmonic regurgitation. The aortic root, ascending aorta and aortic arch are normal. There is no pericardial effusion. CONCLUSIONS -------- 1. Sinus rhythm. 2. This was a technically good study. 3. The left ventricle is mildly dilated. 4. There is mild concentric left ventricular hypertrophy. 5. There is normal global left ventricular contractility. 6. Overall left ventricular systolic function is normal with, an EF between 55 - 60 %. 7. The left atrium is normal in size. 8. The aortic valve is trileaflet, and appears structurally normal. No aortic stenosis or regurgitati on. 9. The mitral valve is normal. 10. Mild mitral regurgitation is present. 11. Mild tricuspid regurgitation present. 12. Trace/mild (physiologic) pulmonic regurgitation. 13. The aortic root, ascending aorta and aortic arch are normal. 14. There is no pericardial effusion. BRAND REPRESENTATIVE: Alf Uriarte [facility] RT(N)
== END 2019-01-01 14:42 | disposition home or self-care (01) ==
LOC: EC 07:01 → 3SCARD 10:35
PROVIDERS: ADMIT Internal Medicine; ATTEND Internal Medicine
DX: I48.0 Paroxysmal atrial fibrillation (principal); I48.1 Persistent atrial fibrillation; R00.2 Palpitations; R42 Dizziness and giddiness; T45.516A Underdosing of anticoagulants, initial encounter; I10 Essential (primary) hypertension; M62.82 Rhabdomyolysis; F10.10 Alcohol abuse, uncomplicated; F17.200 Nicotine dependence, unspecified, uncomplicated; Z79.01 Long term (current) use of anticoagulants; Z79.899 Other long term (current) drug therapy; Z88.0 Allergy status to penicillin; Z82.49 Family history of ischemic heart disease and other diseases of the circulatory system; Z80.1 Family history of malignant neoplasm of trachea, bronchus and lung; Z82.5 Family history of asthma and other chronic lower respiratory diseases
CPT/HCPCS: 36415; 71046; 80053; 82550; 83735; 84484; 85025; 85610; 85730; 93005; 93306; 96365; 96366; 96368; 96376; 99291

== ENCOUNTER 2019-01-19 17:11 | Observation (INO) | payer BC ==
[2019-01-19] MEDS ORDERED: ASPIRIN 81 MG PO STA (17:37)
--- NOTE | 2019-01-19 17:41 | ED ---
General Adult HPI - General Chief complaint: Chest Pain Stated complaint: afib Time Seen by Provider: 01/19/19 17:18 Source: patient Mode of arrival: ambulatory Limitations: no limitations - History of Present Illness Initial comments: Patient is a 48-year-old male with a recent diagnosis of atrial fibrillation who presents with a chief complaint of chest pain. Patient states that this is been ongoing for the last couple weeks however worse today. Patient states that this morning he felt very weak, short of breath, was dizzy, had chest pressure, and was nauseated. The patient cannot identify an inciting incident. There are no aggravating or alleviating factors. Timing is constant. Patient states that his symptoms are somewhat improved from this morning however not gone. Patient also complains of palpitations. - Related Data Home Medications Medication Instructions Recorded Confirmed Multivit-Min/FA/Lycopen/Lutein 1 tab PO DAILY 11/20/17 01/19/19 [Centrum Silver Men Tablet] amLODIPine BESYLATE/BENAZEPRIL 1 cap PO DAILY 12/31/18 01/19/19 [Lotrel 10-20 MG] Metoprolol Tartrate [Lopressor] 25 mg PO HS 01/19/19 01/19/19 Metoprolol Tartrate [Lopressor] 50 mg PO DAILY 01/19/19 01/19/19 Previous Rx's Medication Instructions Recorded Nitroglycerin Sl Tabs [Nitrostat] 0.4 mg SUBLINGUAL Q5M PRN #100 tab 11/21/17 Apixaban [Eliquis] 5 mg PO BID #60 tab 01/01/19 Allergies Allergy/AdvReac Type Severity Reaction Status Date / Time Penicillins Allergy Fever Verified 01/19/19 17:27 Review of Systems ROS Statement: Those systems with pertinent positive or pertinent negative responses have been documented in the HPI. ROS Other: All systems not noted in ROS Statement are negative. Cardiovascular: Reports: chest pain, palpitations Endocrine: Reports: fatigue Gastrointestinal: Reports: nausea Past Medical History Past Medical History: Atrial Fibrillation, Hypertension Additional Past Medical History / Comment(s): hernia History of Any Multi-Drug Resistant Organisms: None Reported Past Surgical History: Hernia Repair Additional Past Surgical History / Comment(s): hand, Past Anesthesia/Blood Transfusion Reactions: No Reported Reaction Past Psychological History: No Psychological Hx Reported Smoking Status: Former smoker Past Alcohol Use History: Occasional Past Drug Use History: Marijuana - Past Family History Mother Family Medical History: COPD Additional Family Medical History / Comment(s): Mother of emphysema. She was a smoker. Father History Unknown: Yes Family Additional Family Medical History / Comment(s): Reports strong family history of heart disease, lung cancer General Exam Limitations: no limitations General appearance: alert, in no apparent distress Head exam: Present: atraumatic, normocephalic Eye exam: Present: normal appearance ENT exam: Present: normal exam Neck exam: Present: normal inspection Respiratory exam: Present: normal lung sounds bilaterally. Absent: respiratory distress, wheezes Cardiovascular Exam: Present: regular rate, irregular rhythm GI/Abdominal exam: Present: soft. Absent: distended, tenderness Rectal exam: Present: deferred Extremities exam: Present: normal inspection, normal capillary refill Back exam: Present: normal inspection Neurological exam: Present: alert, oriented X3 Psychiatric exam: Present: normal affect, normal mood Skin exam: Present: warm, dry, intact Course Vital Signs 01/19/19 01/19/19 01/19/19 17:13 18:46 19:00 Temperature 98.8 F Pulse Rate 78 71 71 Respiratory 18 18 16 Rate Blood Pressure 138/96 126/87 138/95 O2 Sat by Pulse 98 97 97 Oximetry Medical Decision Making - Medical Decision Making Patient presents with a chief complaint of chest pain and palpitations. On initial evaluation, vital signs are stable, patient is in no acute distress. He is alert and oriented, answers questions appropriately. He'll be evaluated with EKG, basic labs including cardiac enzymes, chest x-ray. Patient was given an aspirin. He says he is currently on Eliquis, twice daily. He has not missed any doses of his eliquis. EKG performed at 1743 shows atrial fibrillation with a rate of 71 bpm, segs are otherwise within normal limits, no acute signs of ischemia. 6:42 PM Lab evaluation of this patient is unremarkable. Troponins are negative, x-ray shows no acute process. on re-evaluation, patient remains stable but still with symptoms. will plan for admission for further cardiac evaluation. Case discussed with Dr. Alberts who accepts admission. We will place a consult to cardiology. - Lab Data Result diagrams: 01/19/19 17:40 01/19/19 17:40 Lab Results 01/19/19 01/19/19 01/19/19 Range/Units 17:40 17:40 17:40 WBC 7.6 (3.8-10.6) k/uL RBC 5.84 (4.30-5.90) m/uL Hgb 17.8 H (13.0-17.5) gm/dL Hct 50.2 (39.0-53.0) % MCV 86.0 (80.0-100.0) fL MCH 30.5 (25.0-35.0) pg MCHC 35.4 (31.0-37.0) g/dL RDW 12.3 (11.5-15.5) % Plt Count 192 (150-450) k/uL Neutrophils % 54 % Lymphocytes % 28 % Monocytes % 8 % Eosinophils % 7 % Basophils % 1 % Neutrophils # 4.1 (1.3-7.7) k/uL Lymphocytes # 2.1 (1.0-4.8) k/uL Monocytes # 0.6 (0-1.0) k/uL Eosinophils # 0.5 (0-0.7) k/uL Basophils # 0.0 (0-0.2) k/uL Sodium 140 (137-145) mmol/L Potassium 4.3 (3.5-5.1) mmol/L Chloride 104 (98-107) mmol/L Carbon Dioxide 25 (22-30) mmol/L Anion Gap 11 mmol/L BUN 16 (9-20) mg/dL Creatinine 0.70 (0.66-1.25) mg/dL Est GFR (CKD-EPI)AfAm >90 (>60 ml/min/1.73 sqM) Est GFR (CKD-EPI)NonAf >90 (>60 ml/min/1.73 sqM) Glucose 113 H (74-99) mg/dL Plasma Lactic Acid [place] 1.1 (0.7-2.0) mmol/L Calcium 9.4 (8.4-10.2) mg/dL Troponin I (0.000-0.034) ng/mL NT-Pro-B Natriuret Pep pg/mL Urine Color Urine Appearance (Clear) Urine pH (5.0-8.0) Ur Specific [place] (1.001-1.035) Urine Protein (Negative) Urine Glucose (UA) (Negative) Urine Ketones (Negative) Urine Blood (Negative) Urine Nitrite (Negative) Urine Bilirubin (Negative) Urine Urobilinogen (<2.0) mg/dL Ur Leukocyte Esterase (Negative) 01/19/19 01/19/19 01/19/19 Range/Units 17:40 17:40 18:45 WBC (3.8-10.6) k/uL RBC (4.30-5.90) m/uL Hgb (13.0-17.5) gm/dL Hct (39.0-53.0) % MCV (80.0-100.0) fL MCH (25.0-35.0) pg MCHC (31.0-37.0) g/dL RDW (11.5-15.5) % Plt Count (150-450) k/uL Neutrophils % % Lymphocytes % % Monocytes % % Eosinophils % % Basophils % % Neutrophils # (1.3-7.7) k/uL Lymphocytes # (1.0-4.8) k/uL Monocytes # (0-1.0) k/uL Eosinophils # (0-0.7) k/uL Basophils # (0-0.2) k/uL Sodium (137-145) mmol/L Potassium (3.5-5.1) mmol/L Chloride (98-107) mmol/L Carbon Dioxide (22-30) mmol/L Anion Gap mmol/L BUN (9-20) mg/dL Creatinine (0.66-1.25) mg/dL Est GFR (CKD-EPI)AfAm (>60 ml/min/1.73 sqM) Est GFR (CKD-EPI)NonAf (>60 ml/min/1.73 sqM) Glucose (74-99) mg/dL Plasma Lactic Acid Cortez (0.7-2.0) mmol/L Calcium (8.4-10.2) mg/dL Troponin I <0.012 (0.000-0.034) ng/mL NT-Pro-B Natriuret Pep 559 pg/mL Urine Color Light Yellow Urine Appearance Clear (Clear) Urine pH 7.0 (5.0-8.0) Ur Specific [place] 1.010 (1.001-1.035) Urine Protein Negative (Negative) Urine Glucose (UA) Negative (Negative) Urine Ketones Negative (Negative) Urine Blood Negative (Negative) Urine Nitrite Negative (Negative) Urine Bilirubin Negative (Negative) Urine Urobilinogen <2.0 (<2.0) mg/dL Ur Leukocyte Esterase Negative (Negative) Disposition Clinical Impression: Chest pain, A-fib Disposition: ADMITTED IP TO THIS HOSP Condition: Good Is patient prescribed a controlled substance at d/c from ED?: No Referrals: Birgit Hampton MD [Primary Care Provider] - 1-2 days Decision to Admit Reason: Admit from EC - Out of Hospital Transfer - Req. Specs Out of Hospital Transfer - Requested Specifics: Telemetry Unit
[2019-01-19 17:55] LABS: Basophils % (A) 1 %; Eosinophils # (A) 0.5 k/uL (0-0.7); Eosinophils % (A) 7 %; HCT 50.2 % (39.0-53.0); HGB 17.8 gm/dL (13.0-17.5); Lymphocytes # (A) 2.1 k/uL (1.0-4.8); Lymphocytes % (A) 28 %; MCH 30.5 pg (25.0-35.0); MCHC 35.4 g/dL (31.0-37.0); Mean Platelet Volume 7.1; Monocytes # (A) 0.6 k/uL (0-1.0); Monocytes % (A) 8 %; Neutrophils # (A) 4.1 k/uL (1.3-7.7); Neutrophils % (A) 54 %; Platelet Count 192 k/uL (150-450); RBC 5.84 m/uL (4.30-5.90); RDW 12.3 % (11.5-15.5); WBC 7.6 k/uL (3.8-10.6)
[2019-01-19 18:05] LABS: African American GFR (CKD) >90 (>60 ml/min/1.73 sqM); Anion Gap 11 mmol/L; Blood Urea Nitrogen 16 mg/dL (9-20); Carbon Dioxide 25 mmol/L (22-30); Chloride 104 mmol/L (98-107); Glucose 113 mg/dL (74-99); Potassium 4.3 mmol/L (3.5-5.1); Sodium 140 mmol/L (137-145)
[2019-01-19 18:06] LABS: Calcium 9.4 mg/dL (8.4-10.2)
--- NOTE | 2019-01-19 18:29 | XR ---
EXAMINATION TYPE: XR chest 2V DATE OF EXAM: 01/19/2019 COMPARISON: 12/31/2018 HISTORY: Dysrhythmia TECHNIQUE: Frontal and lateral views of the chest are obtained. FINDINGS: Heart and mediastinum are normal. Lungs are clear. Diaphragm is normal. Bony thorax is int act. There are chest leads. IMPRESSION: No active cardiopulmonary disease. No change.
[2019-01-19 18:50] LABS: Appearance,Urine Clear (Clear); Bilirubin,Urine Negative (Negative); Blood,Urine Negative (Negative); Color,Urine Light Yellow; Glucose,Urine (UA) Negative (Negative); Ketones,Urine Negative (Negative); Leukocyte Esterase,Urine Negative (Negative); Nitrite,Urine Negative (Negative); Protein,Urine Negative (Negative); Urobilinogen,Urine <2.0 mg/dL (<2.0)
[2019-01-19] MEDS ORDERED: NALOXONE 0.4 MG/ML 1 ML VIAL IV PRN (20:28)
[2019-01-19] MEDS ORDERED: NITROGLYCERIN SL TABS 0.4 MG TAB SUBLINGUAL PRN (21:06)
--- NOTE | 2019-01-19 23:23 | HP ---
HISTORY AND PHYSICAL DATE OF SERVICE: 01/19/2019 CHIEF COMPLAINT: Chest pain. HISTORY OF PRESENT ILLNESS: This 48-year-old gentleman with a past medical history of multiple medical problems including atrial fibrillation, hypertension, history of hernia repair, being followed by Dr. Hampton in the outpatient setting, was complaining of chest discomfort. The patient recently admitted with atrial fibrillation and the patient was with fast ventricular rate. The patient improved significantly and the patient discharged at that time. The cardioversion was apparently not carried out because the patient was not very compliant with Eliquis. Currently the patient is complaining of multiple symptomatology including some dizziness and chest burning and chest pain in the upper part of the chest for the last few days and patient came to [facility] and was admitted for further evaluation and treatment. Patient had a an exercise stress test about two years ago, which the patient passed according to him. There is no history of fever, rigors. No history of headache, loss of consciousness or seizures. The EKG showed controlled ventricular rhythm with atrial fibrillation. Patient admitted for further evaluation and treatment at this time. PAST MEDICAL HISTORY: History of paroxysmal atrial fibrillation, history of hypertension, history of hernia repair. MEDICATIONS: Home medications are: 1. Lotrel 10/20 mg p.o. daily. 2. Nitrostat 0.4 sublingual p.r.n. 3. Lopressor 25 mg q.h.s. 4. Multivitamins 1 p.o. daily. 5. Lopressor 50 mg daily. 6. Eliquis 5 mg p.o. b.i.d. ALLERGIES: PENICILLIN. FAMILY HISTORY: History of COPD, history of smoking in mother. SOCIAL HISTORY: Previous history of smoking. Occasional THC and alcohol. REVIEW OF SYSTEMS: ENT: No diminished vision. No diminished hearing. CARDIOVASCULAR system: As mentioned earlier. RESPIRATORY: As mentioned earlier. GI: No nausea or vomiting. no dysuria. NERVOUS SYSTEM: No numbness or weakness. ALLERGY/IMMUNOLOGY: No asthma or hayfever. MUSCULOSKELETAL as mentioned earlier. HEMATOLOGY/ONCOLOGY: No history of anemia. ENDOCRINE: No history of diabetes or hypothyroidism. CONSTITUTIONAL: As mentioned earlier. DERMATOLOGY: Negative. RHEUMATOLOGY: Negative. PSYCHIATRY as mentioned earlier. PHYSICAL EXAMINATION: Alert and oriented x3. Pulse 71, blood pressure 138/94, respirations 16, temperature 98.8, pulse ox 97% on room air. HEENT is conjunctivae normal. NECK is no jugular venous distention. No carotid bruit. No lymph node enlargement. CARDIOVASCULAR system: S1, S2 regular. Otherwise, no murmur. No thrills. No S3, no S4. RESPIRATORY: Breath sounds diminished in the bases. No rhonchi. No crackles. ABDOMEN: Soft, nontender. No mass palpable. LEGS: No edema. No swelling. NERVOUS SYSTEM: Higher functions as mentioned earlier. Moves all 4 limbs. No focal motor or sensory deficits. LYMPHATICS: No lymph nodes palpable in the neck, axilla or groin. SKIN: No ulcer, rash or bleeding. JOINTS: No active deforming arthropathy. LABS: WBC 7.7, hemoglobin 17.8. ASSESSMENT: 1. Chest pain for evaluation, possible unstable angina. 2. Atrial fibrillation, paroxysmal, controlled ventricular rate. 3. Hypertension. 4. History of hernia repair. 5. Previous history of nicotine dependence. 6. History of THC. RECOMMENDATIONS AND DISCUSSION: In this 48-year-old gentleman who presented with multiple medical issues, at this time, I recommend to continue current medications, management and symptomatic treatment. Resume the home medications. Closely with Cardiology. Rule out myocardial infarction. Unstable angina protocol. Guarded prognosis. Further recommendations to follow. A copy of this dictation being forwarded to Dr. Hampton who is the primary physician. MMMARIBEL / LACIEN: [id number] /
[2019-01-20 05:15] VITALS: RESP 16
[2019-01-20 06:18] LABS: Basophils # (A) 0.1 k/uL (0-0.2); Basophils % (A) 1 %; Eosinophils # (A) 0.4 k/uL (0-0.7); Eosinophils % (A) 6 %; HCT 53.5 % (39.0-53.0); HGB 18.3 gm/dL (13.0-17.5); Lymphocytes % (A) 26 %; MCH 29.7 pg (25.0-35.0); MCHC 34.2 g/dL (31.0-37.0); MCV 86.9 fL (80.0-100.0); Mean Platelet Volume 7.4; Monocytes # (A) 0.6 k/uL (0-1.0); Monocytes % (A) 8 %; Neutrophils # (A) 4.4 k/uL (1.3-7.7); Neutrophils % (A) 57 %; Platelet Count 188 k/uL (150-450); RBC 6.16 m/uL (4.30-5.90); RDW 14.4 % (11.5-15.5); WBC 7.8 k/uL (3.8-10.6)
[2019-01-20 06:28] LABS: African American GFR (CKD) >90 (>60 ml/min/1.73 sqM); Anion Gap 12 mmol/L; Blood Urea Nitrogen 17 mg/dL (9-20); Calcium 9.5 mg/dL (8.4-10.2); Carbon Dioxide 24 mmol/L (22-30); Chloride 104 mmol/L (98-107); Glucose 123 mg/dL (74-99); Potassium 4.5 mmol/L (3.5-5.1); Sodium 140 mmol/L (137-145)
[2019-01-20] MEDS ORDERED: LISINOPRIL 20 MG TAB PO SCH (09:00)
[2019-01-20] MEDS ORDERED: NON-FORMULARY DRUG (Multivit-Min/Fa/Lycopen/Lutein [Centrum Silver Men Tablet] 1 TAB) PO SCH (09:00)
[2019-01-20] MEDS ORDERED: APIXABAN 5 MG TAB PO SCH (09:00)
[2019-01-20] MEDS ORDERED: amLODIPine 10 MG TAB PO SCH (09:00)
[2019-01-20] MEDS ORDERED: METOPROLOL TARTRATE 50 MG TAB PO SCH ×2 (09:00→21:00)
[2019-01-20] MEDS ORDERED: PROPAFENONE 225 MG TAB PO SCH (11:45)
--- NOTE | 2019-01-20 11:46 | P.CRDCN ---
History of Present Illness Consult date: 01/20/19 History of present illness: This is a 48-year-old gentleman with history of alcohol and marijuana use and previous history of atrial fibrillation who was admitted again with recurrence of atrial fibrillation and symptoms of palpitation and some chest heaviness. Patient converted back to sinus rhythm this morning and is feeling better. It appears that patient has been taking his medications. His echo last time showed normal LV function. I'm going to start him on Rythmol SR to 25 mg by mouth 3 times a day and her first dose today. If his tolerated the medication, patient could be discharged home. Patient also was diagnosed to have sleep apnea and was seen by Dr. Cervantes. We'll have see him see if he can be a candidate for CPAP therapy. Increase activity as tolerated. Possible discharge this afternoon. We'll may also get consultation with senior sales assistant. Review of Systems As per the chart Past Medical History Past Medical History: Atrial Fibrillation, Hypertension Additional Past Medical History / Comment(s): abdominal hernia History of Any Multi-Drug Resistant Organisms: None Reported Past Surgical History: Hernia Repair Additional Past Surgical History / Comment(s): finger sx Past Anesthesia/Blood Transfusion Reactions: No Reported Reaction Smoking Status: Former smoker - Past Family History Mother Family Medical History: COPD Additional Family Medical History / Comment(s): Mother of emphysema. She was a smoker. Father History Unknown: Yes Family Additional Family Medical History / Comment(s): Reports strong family history of heart disease, lung cancer Medications and Allergies Home Medications Medication Instructions Recorded Confirmed Type Multivit-Min/FA/Lycopen/Lutein 1 tab PO DAILY 11/20/17 01/19/19 History [Centrum Silver Men Tablet] Nitroglycerin Sl Tabs [Nitrostat] 0.4 mg SUBLINGUAL Q5M PRN #100 tab 11/21/17 01/19/19 Rx amLODIPine BESYLATE/BENAZEPRIL 1 cap PO DAILY 12/31/18 01/19/19 History [Lotrel 10-20 MG] Apixaban [Eliquis] 5 mg PO BID #60 tab 01/01/19 01/19/19 Rx Metoprolol Tartrate [Lopressor] 25 mg PO HS 01/19/19 01/19/19 History Metoprolol Tartrate [Lopressor] 50 mg PO DAILY 01/19/19 01/19/19 History Allergies Allergy/AdvReac Type Severity Reaction Status Date / Time Penicillins Allergy Fever Verified 01/19/19 17:27 Physical Exam Vitals: Vital Signs Temp Pulse Pulse Pulse Resp BP BP 01/20/19 08:00 16 01/20/19 07:51 97.6 F 65 16 01/20/19 04:00 98.2 F 88 16 137/89 01/19/19 23:47 98.2 F 69 15 148/89 01/19/19 23:35 83 17 01/19/19 22:00 98 F 83 17 145/98 01/19/19 21:57 98.2 F 75 15 145/98 01/19/19 21:00 117/92 01/19/19 19:00 71 16 138/95 01/19/19 18:46 71 18 126/87 01/19/19 17:13 98.8 F 78 18 138/96 BP Pulse Ox 01/20/19 08:00 01/20/19 07:51 137/92 97 01/20/19 04:00 97 01/19/19 23:47 99 01/19/19 23:35 01/19/19 22:00 01/19/19 21:57 99 01/19/19 21:00 01/19/19 19:00 97 01/19/19 18:46 97 01/19/19 17:13 98 Intake and Output 01/19/19 01/20/19 01/20/19 22:59 06:59 14:59 Intake Total 400 400 Balance 400 400 Intake: Oral 400 400 Other: Voiding Method Toilet Toilet # Voids 2 Weight 105.687 kg GENERAL EXAM: Patient is alert and oriented and doesn't appear to be in any acute distress HEENT: Normocephalic. Normal reaction of pupils, equal size, normal range of extraocular motion. No erythema or exudates in the throat. NECK: No masses, no nuchal rigidity. CHEST: No chest wall deformity. LUNGS: Equal air entry with no crackles or wheeze. HEART: S1 and S2 normal with no audible mumurs or gallops. Regular rhythm, femorals equal on both sides.. ABDOMEN: No hepatosplenomegaly, normal bowel sounds, no guarding or rigidity. SKIN: No rashes CENTRAL NERVOUS SYSTEM: No focal deficits. EXTREMITIES: No cyanosis, clubbing or edema. Results 01/20/19 05:31 01/20/19 05:31 Cardiac Enzymes 01/19/19 01/20/19 01/20/19 Range/Units 17:40 00:35 05:31 Troponin I <0.012 <0.012 <0.012 (0.000-0.034) ng/mL CBC 01/19/19 01/20/19 Range/Units 17:40 05:31 WBC 7.6 7.8 (3.8-10.6) k/uL RBC 5.84 6.16 H (4.30-5.90) m/uL Hgb 17.8 H 18.3 H (13.0-17.5) gm/dL Hct 50.2 53.5 H (39.0-53.0) % Plt Count 192 188 (150-450) k/uL Comprehensive Metabolic Panel 01/19/19 01/20/19 Range/Units 17:40 05:31 Sodium 140 140 (137-145) mmol/L Potassium 4.3 4.5 (3.5-5.1) mmol/L Chloride 104 104 (98-107) mmol/L Carbon Dioxide 25 24 (22-30) mmol/L BUN 16 17 (9-20) mg/dL Creatinine 0.70 0.87 (0.66-1.25) mg/dL Glucose 113 H 123 H (74-99) mg/dL Calcium 9.4 9.5 (8.4-10.2) mg/dL Current Medications Generic Name Dose Route Start Last Admin Trade Name Freq PRN Reason Stop Dose Admin Amlodipine Besylate 10 mg 01/20/19 09:00 Norvasc PO DAILY [facility] Apixaban 5 mg 01/20/19 09:00 Eliquis PO BID ULISES Lisinopril 20 mg 01/20/19 09:00 Zestril PO DAILY ULISES Metoprolol Tartrate 50 mg 01/20/19 09:00 Lopressor PO DAILY ULISES Metoprolol Tartrate 25 mg 01/20/19 21:00 Lopressor PO HS ULISES Naloxone HCl 0.2 mg 01/19/19 20:28 Narcan IV Q2M PRN Opioid Reversal Nitroglycerin 0.4 mg 01/19/19 21:06 Nitrostat SUBLINGUAL Q5M PRN Chest Pain Intake and Output 07/07/19 07/08/19 07/08/19 22:59 06:59 14:59 Intake Total 400 400 Balance 400 400 Intake: Oral 400 400 Other: Voiding Method Toilet Toilet # Voids 2 Weight 105.687 kg 01/20/19 05:31 01/20/19 05:31 EKG Interpretations (text) Atrial fibrillation with controlled ventricular response Assessment and Plan (1) Alcohol abuse Current Visit: No Status: Acute Code(s): F10.10 - ALCOHOL ABUSE, UNCOMPLICATED SNOMED Code(s): 57964307 (2) Persistent atrial fibrillation Current Visit: No Status: Acute Code(s): I48.1 - PERSISTENT ATRIAL FIBRILLATION SNOMED Code(s): 753448256 (3) Hypertension Current Visit: No Status: Chronic Code(s): I10 - ESSENTIAL (PRIMARY) HYPERTENSION SNOMED Code(s): 32161188 Plan: I will start him on Rythmol 225 mg by mouth twice a day. If he tolerates the medication, he could be discharged home. He should follow with Dr. Cervantes regarding his sleep apnea. Follow-up in the office.
[2019-01-20 12:09] VITALS: BP 149/91; PULSE 51; TEMP 98.1
--- NOTE | 2019-01-21 05:18 | DS ---
DISCHARGE SUMMARY DATE OF SERVICE: 01/20/2019 FINAL DIAGNOSES: 1. Chest pain, myocardial infarction ruled out. 2. Atrial fibrillation, paroxysmal, controlled ventricular rate. 3. Hypertension. 4. History of EtOH. 5. History of THC. 6. History of nicotine dependence. 7. History of hernia repair. DISCHARGE DISPOSITION: The patient will be discharged in stable condition with guarded prognosis. Discharge cleared by Cardiology. HISTORY OF PRESENT ILLNESS: This 48-year-old gentleman with a past medical history of multiple medical problems admitted with multiple symptomatology including chest pain to [facility]. The patient also had atrial fibrillation. Rythmol was initiated by Cardiology. Patient improved significantly. Patient was discharged in stable condition with guarded prognosis. Importance of compliance also stressed with the patient. The patient understands and agrees. On exam, vitals are stable. CARDIOVASCULAR: S1, S2 muffled. ABDOMEN: Soft. NERVOUS SYSTEM: No focal deficits. DISCHARGE ADVICE AND MEDICATIONS: 1. Diet is cardiac. 2. Activity limited until followup. 3. Follow up with Dr. Hampton in 2 to 3 days. 4. Follow up with Cardiology as recommended. Medications are: 1. 1 p.o. daily. 2. Lopressor 25 mg q.h.s. AND 50 mg p.o. daily. 3. Lotrel 10/20 p.o. daily. 4. Eliquis 5 mg p.o. b.i.d. 5. Nitrostat 0.4 mg p.r.n. 6. Rythmol 225 mg p.o. t.i.d. Once again the patient will be discharged in stable condition with guarded prognosis. MMODL / IJN: [id number] /
== END 2019-01-20 15:05 | disposition home or self-care (01) ==
LOC: EC 17:11 → 1SOBS 21:04
PROVIDERS: ADMIT Student in an Organized Health Care Education/Training Program; ATTEND Student in an Organized Health Care Education/Training Program
DX: I48.0 Paroxysmal atrial fibrillation (principal); R07.89 Other chest pain; I10 Essential (primary) hypertension; F10.10 Alcohol abuse, uncomplicated; G47.30 Sleep apnea, unspecified; Z87.891 Personal history of nicotine dependence; Z98.890 Other specified postprocedural states; Z79.01 Long term (current) use of anticoagulants; Z79.899 Other long term (current) drug therapy; Z88.0 Allergy status to penicillin; Z80.1 Family history of malignant neoplasm of trachea, bronchus and lung; Z82.49 Family history of ischemic heart disease and other diseases of the circulatory system; Z82.5 Family history of asthma and other chronic lower respiratory diseases
CPT/HCPCS: 99285; 36415; 93005; 83880; 80048 ×2; 83605; 84484 ×2; 85025 ×2; 81003; 71046; G0378 ×2

== ENCOUNTER 2020-09-14 16:26 | Emergency (ER) | payer BC, OTHER ==
--- NOTE | 2020-09-14 17:03 | ED ---
General Adult HPI - General Chief complaint: Arrhythmia/Palpitations Stated complaint: AFib Time Seen by Provider: 09/14/20 16:47 Source: patient Mode of arrival: wheelchair Limitations: no limitations - History of Present Illness Initial comments: Dictation was produced using [employer] dictation software. please excuse any grammatical, word or spelling errors. This patient was cared for during a federal and state declared state of emergency secondary to Covid 19 Chief Complaint: 50-year-old male with past medical history of A. fib presents with palpitations and chest burning History of Present Illness: An is a 50-year-old male who states for the last several days she's been having worsening palpitations. Today he also is having some chest pain that he describes as chest burning. Patient states that he is on multiple medications for atrial fibrillation. He does take a blood thinner and rate controlling medications. Patient was most recently admitted to the hospital and January 2019 for A. fib. Patient has substernal chest burning. States that there is some associated diaphoresis. Denies any nausea. States that sometimes it appears that it is associated with exertion. The ROS documented in this emergency department record has been reviewed and confirmed by me. Those systems with pertinent positive or negative responses have been documented in the HPI. All other systems are other negative and/or noncontributory. PHYSICAL EXAM: General Impression: Alert and oriented x3, not in acute distress HEENT: Normocephalic atraumatic, extra-ocular movements intact, pupils equal and reactive to light bilaterally, mucous membranes moist. Cardiovascular: Irregularly irregular, no murmurs Chest: Able to complete full sentences, no retractions, no tachypnea, clear to auscultation bilaterally Abdomen: abdomen soft, non-tender, non-distended, no organomegaly Musculoskeletal: Pulses present and equal in all extremities, no peripheral edema Motor: no focal deficits noted Neurological: CN II-XII grossly intact, no focal motor or sensory deficits noted Skin: Intact with no visualized rashes Psych: Normal affect and mood ED course: 50-year-old male presents with atypical chest pain typical features to palpitations. Patient is on all the appropriate medications for A. fib. vital signs upon arrival are within acceptable limits. Return evaluation obtained. CBC, metabolic panel is unremarkable. First troponin is negative. Chest x-ray is unremarkable. She given a dose of aspirin. Patient be admitted for serial troponins. Case discussed with Dr. Alberts who is willing to accept patient care on behalf of [facility] hospitalist group. At this point patient's A. fib appears to be controlled given that his rate is at a reasonable level. Disposition options were discussed with patient. He does not want to be admitted. Patient is well-appearing at bedside. His symptoms are very atypical. Does not want to stay for a second troponin. Patient will be discharged with strict return precautions. He is strongly advised to seek immediate medical attention if he has return of chest symptoms especially fits involving diaphoresis, nausea, radiation down the extremities. Patient is understandable and agreeable. He understands the risks of discharge given that he doesn't have serial troponins. Nonetheless patient is stable and well- appearing. EKG interpretation: Ventricular rate 102, A. fib with RVR, QRS 96, QTC 391. No OK prolongation, no QTC prolongation, no ST or T-wave changes noted. EKG compared to EKG from 01/19/2019 with no changes. Overall, this EKG is unremarkable - Related Data Home Medications Medication Instructions Recorded Confirmed Multivit-Min/FA/Lycopen/Lutein 1 tab PO DAILY 11/20/17 01/19/19 [Centrum Silver Men Tablet] Metoprolol Tartrate [Lopressor] 25 mg PO BID 09/14/20 09/14/20 amLODIPine BESYLATE/BENAZEPRIL 1 cap PO DAILY 09/14/20 09/14/20 [Lotrel 10-40 MG] Previous Rx's Medication Instructions Recorded Nitroglycerin Sl Tabs [Nitrostat] 0.4 mg SUBLINGUAL Q5M PRN #100 tab 11/21/17 Apixaban [Eliquis] 5 mg PO BID #60 tab 01/01/19 Propafenone [Rythmol] 225 mg PO TID #90 tab 01/20/19 Allergies Allergy/AdvReac Type Severity Reaction Status Date / Time Penicillins Allergy Fever Verified 01/19/19 17:27 Review of Systems ROS Statement: Those systems with pertinent positive or pertinent negative responses have been documented in the HPI. ROS Other: All systems not noted in ROS Statement are negative. Past Medical History Past Medical History: Atrial Fibrillation, Hypertension Additional Past Medical History / Comment(s): abdominal hernia History of Any Multi-Drug Resistant Organisms: None Reported Past Surgical History: Hernia Repair Additional Past Surgical History / Comment(s): finger sx Past Anesthesia/Blood Transfusion Reactions: No Reported Reaction Past Psychological History: No Psychological Hx Reported Smoking Status: Never smoker Past Alcohol Use History: Rare Past Drug Use History: Marijuana - Past Family History Mother Family Medical History: COPD Additional Family Medical History / Comment(s): Mother of emphysema. She was a smoker. Father History Unknown: Yes Family Additional Family Medical History / Comment(s): Reports strong family history of heart disease, lung cancer General Exam Limitations: no limitations Course Vital Signs 09/14/20 16:35 Temperature 99.2 F Pulse Rate 98 Respiratory 16 Rate Blood Pressure 164/100 O2 Sat by Pulse 97 Oximetry Medical Decision Making - Lab Data Result diagrams: 09/14/20 16:59 09/14/20 16:59 Lab Results 09/14/20 09/14/20 09/14/20 Range/Units 16:59 16:59 16:59 WBC 7.6 (3.8-10.6) k/uL RBC 5.83 (4.30-5.90) m/uL Hgb 18.2 H (13.0-17.5) gm/dL Hct 50.3 (39.0-53.0) % MCV 86.4 (80.0-100.0) fL MCH 31.2 (25.0-35.0) pg MCHC 36.1 (31.0-37.0) g/dL RDW 12.0 (11.5-15.5) % Plt Count 206 (150-450) k/uL MPV 7.6 Neutrophils % 49 % Lymphocytes % 36 % Monocytes % 8 % Eosinophils % 4 % Basophils % 1 % Neutrophils # 3.7 (1.3-7.7) k/uL Lymphocytes # 2.7 (1.0-4.8) k/uL Monocytes # 0.6 (0-1.0) k/uL Eosinophils # 0.3 (0-0.7) k/uL Basophils # 0.1 (0-0.2) k/uL Sodium 141 (137-145) mmol/L Potassium 4.4 (3.5-5.1) mmol/L Chloride 107 (98-107) mmol/L Carbon Dioxide 21 L (22-30) mmol/L Anion Gap 13 mmol/L BUN 25 H (9-20) mg/dL Creatinine 1.02 (0.66-1.25) mg/dL Est GFR (CKD-EPI)AfAm >90 (>60 ml/min/1.73 sqM) Est GFR (CKD-EPI)NonAf 85 (>60 ml/min/1.73 sqM) Glucose 136 H (74-99) mg/dL Calcium 9.4 (8.4-10.2) mg/dL Magnesium 2.1 (1.6-2.3) mg/dL Troponin I <0.012 (0.000-0.034) ng/mL Disposition Clinical Impression: Chest pain, Afib Disposition: HOME SELF-CARE Condition: Fair Instructions (If sedation given, give patient instructions): Heart Palpitations (ED) Is patient prescribed a controlled substance at d/c from ED?: No Referrals: Birgit Hampton MD [Primary Care Provider] - 1-2 days Time of Disposition: 18:00
[2020-09-14 17:08] LABS: Basophils # (A) 0.1 k/uL (0-0.2); Basophils % (A) 1 %; Eosinophils # (A) 0.3 k/uL (0-0.7); Eosinophils % (A) 4 %; HCT 50.3 % (39.0-53.0); HGB 18.2 gm/dL (13.0-17.5); Lymphocytes # (A) 2.7 k/uL (1.0-4.8); Lymphocytes % (A) 36 %; MCH 31.2 pg (25.0-35.0); MCHC 36.1 g/dL (31.0-37.0); MCV 86.4 fL (80.0-100.0); Mean Platelet Volume 7.6; Monocytes # (A) 0.6 k/uL (0-1.0); Monocytes % (A) 8 %; Neutrophils # (A) 3.7 k/uL (1.3-7.7); Neutrophils % (A) 49 %; Platelet Count 206 k/uL (150-450); RBC 5.83 m/uL (4.30-5.90); WBC 7.6 k/uL (3.8-10.6)
[2020-09-14 17:16] LABS: African American GFR (CKD) >90 (>60 ml/min/1.73 sqM); Anion Gap 13 mmol/L; Blood Urea Nitrogen 25 mg/dL (9-20); Calcium 9.4 mg/dL (8.4-10.2); Carbon Dioxide 21 mmol/L (22-30); Chloride 107 mmol/L (98-107); Glucose 136 mg/dL (74-99); Magnesium 2.1 mg/dL (1.6-2.3); Non-African American GFR(CKD) 85 (>60 ml/min/1.73 sqM); Potassium 4.4 mmol/L (3.5-5.1); Sodium 141 mmol/L (137-145)
--- NOTE | 2020-09-14 17:21 | XR ---
EXAMINATION TYPE: XR chest 1V portable DATE OF EXAM: 09/14/2020 COMPARISON: NONE HISTORY: Chest pain TECHNIQUE: 2 views FINDINGS: Heart and mediastinum are normal. Lungs are clear. Costophrenic angles are clear. There are no hilar masses. The bony thorax is intact. There are chest leads. IMPRESSION: No active cardiopulmonary disease. Normal heart. No change.
[2020-09-14] MEDS ORDERED: METOPROLOL TARTRATE 5 MG/5 ML VIAL IVP STA (17:53)
[2020-09-14] MEDS ORDERED: ASPIRIN 81 MG PO STA (17:54)
[2020-09-14 18:22] VITALS: BP 132/105; PULSE 87; RESP 18; TEMP 98.1
== END 2020-09-14 18:19 | disposition home or self-care (01) ==
LOC: EC 16:26
DX: I48.20 Chronic atrial fibrillation, unspecified (principal); I10 Essential (primary) hypertension; Z79.899 Other long term (current) drug therapy
CPT/HCPCS: 36415; 71045; 80048; 83735; 84484; 85025; 93005; 99285

== ENCOUNTER 2021-03-02 08:47 | Emergency (ER) | payer OTHER ==
[2021-03-02 08:52] VITALS: TEMP 97.8
--- NOTE | 2021-03-02 09:15 | ED ---
General Adult HPI - General Chief complaint: Chest Pain Stated complaint: heart fluttering/weak Time Seen by Provider: 03/02/21 08:56 Source: patient Mode of arrival: ambulatory Limitations: no limitations - History of Present Illness Initial comments: Patient is a 50-year-old male with past medical history of proximal A. fib who presents emergency room with reported palpitations. Patient reports to having palpitations since Sunday. He has been seen at her facility multiple times for similar complaint. States that he is on Rythmol but only takes it when he feels the palpitations come on. He is also supposed to be on Eliquis but states he hasn't taken it in the past month. He sees Dr. Rodriguez the outpatient setting. Denies recent stress testing. Has never had a cath. States that he has associated chest discomfort with his palpitations which is not common for him. He denies any fevers, chills, cough. No nausea or vomiting. No history of coronary disease. No recent alcohol intake or caffeine use. No other alleviating, precipitating or modifying factors - Related Data Home Medications Medication Instructions Recorded Confirmed Multivit-Min/FA/Lycopen/Lutein 1 tab PO DAILY 11/20/17 09/14/20 [Centrum Silver Men Tablet] Metoprolol Tartrate [Lopressor] 25 mg PO BID 09/14/20 09/14/20 amLODIPine BESYLATE/BENAZEPRIL 1 cap PO DAILY 09/14/20 09/14/20 [Lotrel 10-40 MG] Previous Rx's Medication Instructions Recorded Nitroglycerin Sl Tabs [Nitrostat] 0.4 mg SUBLINGUAL Q5M PRN #100 tab 11/21/17 Apixaban [Eliquis] 5 mg PO BID #60 tab 01/01/19 Propafenone [Rythmol] 225 mg PO TID #90 tab 01/20/19 Allergies Allergy/AdvReac Type Severity Reaction Status Date / Time Penicillins Allergy Fever Verified 03/02/21 08:52 Review of Systems ROS Statement: Those systems with pertinent positive or pertinent negative responses have been documented in the HPI. ROS Other: All systems not noted in ROS Statement are negative. Past Medical History Past Medical History: Atrial Fibrillation, Hypertension Additional Past Medical History / Comment(s): abdominal hernia History of Any Multi-Drug Resistant Organisms: None Reported Past Surgical History: Hernia Repair Additional Past Surgical History / Comment(s): finger sx Past Anesthesia/Blood Transfusion Reactions: No Reported Reaction Past Psychological History: No Psychological Hx Reported Smoking Status: Never smoker Past Alcohol Use History: Rare Past Drug Use History: Marijuana - Past Family History Mother Family Medical History: COPD Additional Family Medical History / Comment(s): Mother of emphysema. She was a smoker. Father History Unknown: Yes Family Additional Family Medical History / Comment(s): Reports strong family history of heart disease, lung cancer General Exam Limitations: no limitations Course Vital Signs 03/02/21 03/02/21 03/02/21 08:49 10:41 11:00 Temperature 97.8 F Pulse Rate 77 89 Respiratory 18 16 16 Rate Blood Pressure 149/97 120/103 O2 Sat by Pulse 98 98 98 Oximetry 03/02/21 03/02/21 11:59 12:00 Temperature 97.8 F Pulse Rate 91 Respiratory 16 16 Rate Blood Pressure 122/99 O2 Sat by Pulse 98 98 Oximetry EKG Findings - EKG Comments: EKG Findings:: EKG demonstrates A. fib with a rate of 81. QRS 102. QTC of 425.. No acute ST segment elevations or depressions Medical Decision Making - Medical Decision Making Upon arrival patient was placed into room 22. History and physical exam was performed. IV is established. Laboratory studies were conducted patient for chest x-ray. EKG demonstrates A. fib with a controlled ventricular rate. Laboratory studies are reviewed. Troponin is negative. Chest x-ray demonstrates no acute process. I discussed results patient. Recommend hospital physician orders trend his troponins due to reported chest pain on for patient refused stating that he wanted follow-up with his doctor on patient basis. He is instructed that he needs to take his Rythmol as directed 3 times daily and begin taking his Ahlquist as he has no contraindications twice daily. He states he has enough of these medications at home. He needs to call and make an appointment with the cardiology associates as soon as possible. Return to the emergency room should he agree to further care here. Patient understood this. He is informed of the risks of leaving without a further evaluation. Patient was discharged home in stable condition - Lab Data Result diagrams: 03/02/21 09:19 03/02/21 09:19 Lab Results 03/02/21 03/02/21 03/02/21 Range/Units 09:19 09:19 09:19 WBC 7.2 (3.8-10.6) k/uL RBC 5.45 (4.30-5.90) m/uL Hgb 17.1 (13.0-17.5) gm/dL Hct 50.8 (39.0-53.0) % MCV 93.2 (80.0-100.0) fL MCH 31.4 (25.0-35.0) pg MCHC 33.7 (31.0-37.0) g/dL RDW 15.9 H (11.5-15.5) % Plt Count 152 (150-450) k/uL MPV 8.1 Neutrophils % 57 % Lymphocytes % 28 % Monocytes % 8 % Eosinophils % 4 % Basophils % 1 % Neutrophils # 4.1 (1.3-7.7) k/uL Lymphocytes # 2.0 (1.0-4.8) k/uL Monocytes # 0.6 (0-1.0) k/uL Eosinophils # 0.3 (0-0.7) k/uL Basophils # 0.1 (0-0.2) k/uL Hypochromasia Moderate Poikilocytosis Moderate PT 10.8 (9.0-12.0) sec INR 1.0 (<1.2) APTT 22.6 (22.0-30.0) sec Sodium 139 (137-145) mmol/L Potassium 4.5 (3.5-5.1) mmol/L Chloride 105 (98-107) mmol/L Carbon Dioxide 23 (22-30) mmol/L Anion Gap 11 mmol/L BUN 19 (9-20) mg/dL Creatinine 0.82 (0.66-1.25) mg/dL Est GFR (CKD-EPI)AfAm >90 (>60 ml/min/1.73 sqM) Est GFR (CKD-EPI)NonAf >90 (>60 ml/min/1.73 sqM) Glucose 165 H (74-99) mg/dL Calcium 9.8 (8.4-10.2) mg/dL Magnesium 2.0 (1.6-2.3) mg/dL Total Bilirubin 1.1 (0.2-1.3) mg/dL AST 37 (17-59) U/L ALT 37 (4-49) U/L Alkaline Phosphatase 62 (38-126) U/L Troponin I (0.000-0.034) ng/mL Total Protein 7.8 (6.3-8.2) g/dL Albumin 4.9 (3.5-5.0) g/dL TSH 0.903 (0.465-4.680) mIU/L 03/02/21 Range/Units 09:19 WBC (3.8-10.6) k/uL RBC (4.30-5.90) m/uL Hgb (13.0-17.5) gm/dL Hct (39.0-53.0) % MCV (80.0-100.0) fL MCH (25.0-35.0) pg MCHC (31.0-37.0) g/dL RDW (11.5-15.5) % Plt Count (150-450) k/uL MPV Neutrophils % % Lymphocytes % % Monocytes % % Eosinophils % % Basophils % % Neutrophils # (1.3-7.7) k/uL Lymphocytes # (1.0-4.8) k/uL Monocytes # (0-1.0) k/uL Eosinophils # (0-0.7) k/uL Basophils # (0-0.2) k/uL Hypochromasia Poikilocytosis PT (9.0-12.0) sec INR (<1.2) APTT (22.0-30.0) sec Sodium (137-145) mmol/L Potassium (3.5-5.1) mmol/L Chloride (98-107) mmol/L Carbon Dioxide (22-30) mmol/L Anion Gap mmol/L BUN (9-20) mg/dL Creatinine (0.66-1.25) mg/dL Est GFR (CKD-EPI)AfAm (>60 ml/min/1.73 sqM) Est GFR (CKD-EPI)NonAf (>60 ml/min/1.73 sqM) Glucose (74-99) mg/dL Calcium (8.4-10.2) mg/dL Magnesium (1.6-2.3) mg/dL Total Bilirubin (0.2-1.3) mg/dL AST (17-59) U/L ALT (4-49) U/L Alkaline Phosphatase (38-126) U/L Troponin I <0.012 (0.000-0.034) ng/mL Total Protein (6.3-8.2) g/dL Albumin (3.5-5.0) g/dL TSH (0.465-4.680) mIU/L Disposition Clinical Impression: Atrial fibrillation Disposition: HOME SELF-CARE Condition: Stable Instructions (If sedation given, give patient instructions): A-fib (Atrial Fibrillation) (ED) Additional Instructions: Please take your Rythmol three times daily and Eliquis TWICE daily as directed. Follow up with the cardiology associates within 1 week. Return to emergency room for any new or worsening symptoms or should you agree to hospitalization Is patient prescribed a controlled substance at d/c from ED?: No Referrals: Birgit Hampton MD [Primary Care Provider] - 1-2 days [facility] [Provider Group] - 1-2 days Time of Disposition: 11:18
[2021-03-02 09:35] LABS: Basophils # (A) 0.1 k/uL (0-0.2); Basophils % (A) 1 %; Eosinophils # (A) 0.3 k/uL (0-0.7); Eosinophils % (A) 4 %; HCT 50.8 % (39.0-53.0); HGB 17.1 gm/dL (13.0-17.5); Hypochromasia Moderate; Lymphocytes % (A) 28 %; MCH 31.4 pg (25.0-35.0); MCHC 33.7 g/dL (31.0-37.0); MCV 93.2 fL (80.0-100.0); Mean Platelet Volume 8.1; Monocytes # (A) 0.6 k/uL (0-1.0); Monocytes % (A) 8 %; Neutrophils # (A) 4.1 k/uL (1.3-7.7); Neutrophils % (A) 57 %; Platelet Count 152 k/uL (150-450); Poikilocytosis Moderate; RBC 5.45 m/uL (4.30-5.90); RDW 15.9 % (11.5-15.5); WBC 7.2 k/uL (3.8-10.6)
--- NOTE | 2021-03-02 09:40 | XR ---
EXAMINATION TYPE: XR chest 2V DATE OF EXAM: 03/02/2021 COMPARISON: Chest x-ray September 14, 2020 HISTORY: Atrial fibrillation and dysrhythmia. TECHNIQUE: Frontal and lateral views of the chest are obtained. FINDINGS: There is no suspicious new focal air space opacity, pleural effusion, or pneumothorax seen . The cardiac silhouette size is stable and within normal limits. The osseous structures are intac t. Overlying EKG leads. IMPRESSION: No acute process. No significant change from prior.
[2021-03-02 09:50] LABS: Partial Thromboplastin Time 22.6 sec (22.0-30.0); Prothrombin Time 10.8 sec (9.0-12.0)
[2021-03-02 09:59] LABS: African American GFR (CKD) >90 (>60 ml/min/1.73 sqM); Albumin 4.9 g/dL (3.5-5.0); Anion Gap 11 mmol/L; Blood Urea Nitrogen 19 mg/dL (9-20); Calcium 9.8 mg/dL (8.4-10.2); Carbon Dioxide 23 mmol/L (22-30); Chloride 105 mmol/L (98-107); Glucose 165 mg/dL (74-99); Non-African American GFR(CKD) >90 (>60 ml/min/1.73 sqM); Potassium 4.5 mmol/L (3.5-5.1); Sodium 139 mmol/L (137-145); Total Protein 7.8 g/dL (6.3-8.2)
[2021-03-02 10:00] LABS: ALT 37 U/L (4-49); AST 37 U/L (17-59); Alkaline Phosphatase 62 U/L (38-126); Total Bilirubin 1.1 mg/dL (0.2-1.3)
[2021-03-02 10:42] VITALS: RESP 16
[2021-03-02 12:03] VITALS: BP 122/99; PULSE 91
== END 2021-03-02 12:00 | disposition home or self-care (01) ==
LOC: EC 08:47
DX: I48.91 Unspecified atrial fibrillation (principal); I10 Essential (primary) hypertension; F12.90 Cannabis use, unspecified, uncomplicated; Z79.01 Long term (current) use of anticoagulants; Z79.899 Other long term (current) drug therapy
CPT/HCPCS: 36415; 71046; 80053; 83735; 84443; 84484; 85025; 85610; 85730; 93005; 99285

== ENCOUNTER 2021-04-08 06:49 | Emergency (ER) | payer OTHER ==
[2021-04-08 06:57] VITALS: BP 164/90; PULSE 77; RESP 18; TEMP 98.7
[2021-04-08] MEDS ORDERED: IBUPROFEN 800 MG TAB PO STA (07:23)
--- NOTE | 2021-04-08 07:41 | XR ---
EXAMINATION TYPE: XR chest 2V DATE OF EXAM: 04/08/2021 COMPARISON: 03/02/21 HISTORY: fever TECHNIQUE: Frontal and lateral views of the chest are obtained. FINDINGS: Patchy infiltrate right lower lobe. Correlate for pneumonia. No evidence for pneumothorax. No pleural effusion. The cardiac silhouette size is within normal limits. The osseous structures are grossly intact. IMPRESSION: 1. Patchy infiltrate right lower lobe. Correlate for pneumonia.
--- NOTE | 2021-04-08 08:00 | ED ---
URI HPI - General Chief Complaint: Upper Respiratory Infection Stated Complaint: SOB Time Seen by Provider: 04/08/21 06:59 Source: patient, RN notes reviewed Mode of arrival: ambulatory Limitations: no limitations - History of Present Illness Initial Comments: Patient is a 50-year-old male that presents to emergency department complaining of upper respiratory tract symptoms since Sunday. He notes he is been having on and off again fevers. He takes Motrin at home which have the fevers out of control. He notes he came to ER for Covid testings week return back to work. He denied any other issues or complaints. He was otherwise well-appearing 50-year-old male in no apparent distress or pain. He denied any chest pain shortness of breath headache nausea vomiting diarrhea constipation fatigue chills. - Related Data Home Medications Medication Instructions Recorded Confirmed Multivit-Min/FA/Lycopen/Lutein 1 tab PO DAILY 11/20/17 09/14/20 [Centrum Silver Men Tablet] Metoprolol Tartrate [Lopressor] 25 mg PO BID 09/14/20 09/14/20 amLODIPine BESYLATE/BENAZEPRIL 1 cap PO DAILY 09/14/20 09/14/20 [Lotrel 10-40 MG] Previous Rx's Medication Instructions Recorded Nitroglycerin Sl Tabs [Nitrostat] 0.4 mg SUBLINGUAL Q5M PRN #100 tab 11/21/17 Apixaban [Eliquis] 5 mg PO BID #60 tab 01/01/19 Propafenone [Rythmol] 225 mg PO TID #90 tab 01/20/19 Levofloxacin [Levaquin] 500 mg PO DAILY #10 tab 04/08/21 Allergies Allergy/AdvReac Type Severity Reaction Status Date / Time Penicillins Allergy Fever Verified 04/08/21 06:57 Review of Systems ROS Statement: Those systems with pertinent positive or pertinent negative responses have been documented in the HPI. ROS Other: All systems not noted in ROS Statement are negative. Past Medical History Past Medical History: Atrial Fibrillation, Hypertension Additional Past Medical History / Comment(s): abdominal hernia History of Any Multi-Drug Resistant Organisms: None Reported Past Surgical History: Hernia Repair Additional Past Surgical History / Comment(s): finger sx Past Anesthesia/Blood Transfusion Reactions: No Reported Reaction Past Psychological History: No Psychological Hx Reported Smoking Status: Never smoker Past Alcohol Use History: Rare Past Drug Use History: Marijuana - Past Family History Mother Family Medical History: COPD Additional Family Medical History / Comment(s): Mother of emphysema. She was a smoker. Father History Unknown: Yes Family Additional Family Medical History / Comment(s): Reports strong family history of heart disease, lung cancer General Exam Limitations: no limitations General appearance: alert, in no apparent distress Head exam: Present: atraumatic, normocephalic, normal inspection Eye exam: Present: normal appearance, PERRL, EOMI. Absent: scleral icterus, conjunctival injection, periorbital swelling ENT exam: Present: normal exam, mucous membranes moist Neck exam: Present: normal inspection Respiratory exam: Present: normal lung sounds bilaterally. Absent: respiratory distress, wheezes, rales, rhonchi, stridor Cardiovascular Exam: Present: regular rate, normal rhythm, normal heart sounds. Absent: systolic murmur, diastolic murmur, rubs, gallop, clicks GI/Abdominal exam: Present: soft, normal bowel sounds. Absent: distended, tenderness, guarding, rebound, rigid Extremities exam: Present: normal inspection, full ROM, normal capillary refill. Absent: tenderness, pedal edema, joint swelling, calf tenderness Neurological exam: Present: alert, oriented X3 Psychiatric exam: Present: normal affect, normal mood Skin exam: Present: warm, dry, intact, normal color. Absent: rash Course Vital Signs 04/08/21 06:53 Temperature 98.7 F Pulse Rate 77 Respiratory 18 Rate Blood Pressure 164/90 O2 Sat by Pulse 95 Oximetry Medical Decision Making - Medical Decision Making 50-year-old male requesting Covid test to return to work. Covid test, chest x-ray ordered. Covid test negative. Chest x-ray patchy lower lobe infiltrate. Antibiotics we sent the patient's pharmacy. Case discussed with Dr. Spivey him a patient can discharge home. - Lab Data Lab Results 04/08/21 Range/Units 07:17 Coronavirus (PCR) Not Detected (Not Detectd) - Radiology Data Radiology results: report reviewed, image reviewed Chest x-ray: Patchy infiltrate right lower lobe. Correlate for pneumonia. Disposition Clinical Impression: Pneumonia Disposition: HOME SELF-CARE Condition: Stable Instructions (If sedation given, give patient instructions): Upper Respiratory Infection (ED) Additional Instructions: Please return to the Emergency Department if symptoms worsen or any other concerns. Follow-up primary care 1-2 days. Take antibiotics as prescribed. Is patient prescribed a controlled substance at d/c from ED?: No Referrals: Birgit Hampton MD [Primary Care Provider] - 1-2 days Time of Disposition: 08:00
== END 2021-04-08 08:11 | disposition home or self-care (01) ==
LOC: EC 06:49
DX: J18.9 Pneumonia, unspecified organism (principal); I10 Essential (primary) hypertension; I48.91 Unspecified atrial fibrillation; Z72.89 Other problems related to lifestyle; F12.90 Cannabis use, unspecified, uncomplicated; Z79.01 Long term (current) use of anticoagulants
CPT/HCPCS: 71046; 87635; 99283

== ENCOUNTER 2021-05-02 12:13 | Emergency (ER) | payer OTHER ==
[2021-05-02 12:49] VITALS: TEMP 98.1
[2021-05-02] MEDS ORDERED: KETOROLAC 15 MG/ML 1 ML VIAL IVP STA (13:12)
[2021-05-02] MEDS ORDERED: SODIUM CHLORIDE 0.9% 1,000 ML IV STA (13:12)
[2021-05-02] MEDS ORDERED: ONDANSETRON 4 MG/2 ML VIAL IVP STA (13:12)
--- NOTE | 2021-05-02 13:16 | ED ---
Abdominal Pain HPI - General Chief Complaint: Abdominal Pain Stated Complaint: LT abd side pain Time Seen by Provider: 05/02/21 12:59 Source: patient, RN notes reviewed Mode of arrival: ambulatory Limitations: no limitations - History of Present Illness Initial Comments: Patient is a 50-year-old male presented to the ED for abdominal pain. Patient states that pain started this morning around 9 AM it is located on the left flank. He states he is 8 out of 10 pain, as made worse with any movement. he states he does have a history of kidney stones (this is a different pain. Patient has not been feeling ill prior to this episode. Patient does report feeling nauseous like he might vomit but hasn't yet today. Patient denies any other symptoms cough, congestion, fever, headache. Patient reports no changes in bowel movements or urination, no pain with urination as reported. - Related Data Home Medications Medication Instructions Recorded Confirmed Metoprolol Tartrate [Lopressor] 25 mg PO BID 09/14/20 05/02/21 amLODIPine BESYLATE/BENAZEPRIL 1 cap PO DAILY 09/14/20 05/02/21 [Lotrel 10-40 MG] Esomeprazole Magnesium [NexIUM 20 mg PO DAILY 05/02/21 05/02/21 24Hr] Previous Rx's Medication Instructions Recorded Ciprofloxacin HCl [Cipro] 500 mg PO Q12HR #20 tablet 05/02/21 metroNIDAZOLE [Flagyl] 500 mg PO TID #30 tab 05/02/21 Allergies Allergy/AdvReac Type Severity Reaction Status Date / Time Penicillins AdvReac Fever Verified 05/02/21 13:42 Review of Systems ROS Statement: Those systems with pertinent positive or pertinent negative responses have been documented in the HPI. ROS Other: All systems not noted in ROS Statement are negative. Past Medical History Past Medical History: Atrial Fibrillation, Hypertension Additional Past Medical History / Comment(s): abdominal hernia History of Any Multi-Drug Resistant Organisms: None Reported Past Surgical History: Hernia Repair Additional Past Surgical History / Comment(s): finger sx Past Anesthesia/Blood Transfusion Reactions: No Reported Reaction Past Psychological History: No Psychological Hx Reported Smoking Status: Never smoker Past Alcohol Use History: Rare Past Drug Use History: Marijuana - Past Family History Mother Family Medical History: COPD Additional Family Medical History / Comment(s): Mother of emphysema. She was a smoker. Father History Unknown: Yes Family Additional Family Medical History / Comment(s): Reports strong family history of heart disease, lung cancer General Exam Limitations: no limitations General appearance: alert, in no apparent distress Respiratory exam: Present: normal lung sounds bilaterally. Absent: respiratory distress, wheezes, rales, rhonchi, stridor Cardiovascular Exam: Present: regular rate, normal rhythm, normal heart sounds. Absent: systolic murmur, diastolic murmur, rubs, gallop, clicks GI/Abdominal exam: Present: soft, tenderness (left flank), guarding (Generalized), normal bowel sounds Back exam: Present: CVA tenderness (L) Neurological exam: Present: alert, oriented X3 Skin exam: Present: warm, dry, intact, normal color. Absent: rash Course Vital Signs 05/02/21 12:46 Temperature 98.1 F Pulse Rate 60 Respiratory 20 Rate Blood Pressure 170/93 O2 Sat by Pulse 96 Oximetry Medical Decision Making - Medical Decision Making Patient presents with left-sided flank pain, imaging shows signs diverticulitis. Patient will be placed on antibiotic course, counseled on clear liquid diet. Return parameters were discussed. - Lab Data Result diagrams: 05/02/21 13:31 05/02/21 13:31 Lab Results 05/02/21 05/02/21 05/02/21 Range/Units 13:31 13:31 13:31 WBC 10.3 (3.8-10.6) k/uL RBC 5.20 (4.30-5.90) m/uL Hgb 16.1 (13.0-17.5) gm/dL Hct 46.7 (39.0-53.0) % MCV 89.8 (80.0-100.0) fL MCH 31.0 (25.0-35.0) pg MCHC 34.5 (31.0-37.0) g/dL RDW 12.0 (11.5-15.5) % Plt Count 145 L (150-450) k/uL MPV 8.1 Neutrophils % 67 % Lymphocytes % 20 % Monocytes % 8 % Eosinophils % 3 % Basophils % 1 % Neutrophils # 6.9 (1.3-7.7) k/uL Lymphocytes # 2.1 (1.0-4.8) k/uL Monocytes # 0.9 (0-1.0) k/uL Eosinophils # 0.3 (0-0.7) k/uL Basophils # 0.1 (0-0.2) k/uL Sodium 138 (137-145) mmol/L Potassium 4.3 (3.5-5.1) mmol/L Chloride 105 (98-107) mmol/L Carbon Dioxide 22 (22-30) mmol/L Anion Gap 11 mmol/L BUN 18 (9-20) mg/dL Creatinine 0.86 (0.66-1.25) mg/dL Est GFR (CKD-EPI)AfAm >90 (>60 ml/min/1.73 sqM) Est GFR (CKD-EPI)NonAf >90 (>60 ml/min/1.73 sqM) Glucose 162 H (74-99) mg/dL Calcium 9.5 (8.4-10.2) mg/dL Total Bilirubin 0.6 (0.2-1.3) mg/dL AST 29 (17-59) U/L ALT 34 (4-49) U/L Alkaline Phosphatase 57 (38-126) U/L Total Protein 8.0 (6.3-8.2) g/dL Albumin 4.8 (3.5-5.0) g/dL Amylase 55 (30-110) U/L Lipase 73 (23-300) U/L Urine Color Colorless Urine Appearance Clear (Clear) Urine pH 5.5 (5.0-8.0) Ur Specific [place] 1.004 (1.001-1.035) Urine Protein Negative (Negative) Urine Glucose (UA) Negative (Negative) Urine Ketones Negative (Negative) Urine Blood Negative (Negative) Urine Nitrite Negative (Negative) Urine Bilirubin Negative (Negative) Urine Urobilinogen <2.0 (<2.0) mg/dL Ur Leukocyte Esterase Negative (Negative) Disposition Clinical Impression: Diverticulitis Disposition: HOME SELF-CARE Condition: Stable Instructions (If sedation given, give patient instructions): Diverticulitis Diet (ED), Diverticulitis (ED) Additional Instructions: Please return to the Emergency Department if symptoms worsen or any other concerns. Prescriptions: Ciprofloxacin HCl [Cipro] 500 mg PO Q12HR #20 tablet metroNIDAZOLE [Flagyl] 500 mg PO TID #30 tab Is patient prescribed a controlled substance at d/c from ED?: No Referrals: Birgit Hampton MD [Primary Care Provider] - 1-2 days Time of Disposition: 14:28
[2021-05-02 13:52] LABS: Basophils # (A) 0.1 k/uL (0-0.2); Basophils % (A) 1 %; Eosinophils # (A) 0.3 k/uL (0-0.7); Eosinophils % (A) 3 %; HCT 46.7 % (39.0-53.0); HGB 16.1 gm/dL (13.0-17.5); Lymphocytes # (A) 2.1 k/uL (1.0-4.8); Lymphocytes % (A) 20 %; MCHC 34.5 g/dL (31.0-37.0); MCV 89.8 fL (80.0-100.0); Mean Platelet Volume 8.1; Monocytes # (A) 0.9 k/uL (0-1.0); Monocytes % (A) 8 %; Neutrophils # (A) 6.9 k/uL (1.3-7.7); Neutrophils % (A) 67 %; Platelet Count 145 k/uL (150-450); WBC 10.3 k/uL (3.8-10.6)
[2021-05-02 14:12] LABS: ALT 34 U/L (4-49); AST 29 U/L (17-59); African American GFR (CKD) >90 (>60 ml/min/1.73 sqM); Albumin 4.8 g/dL (3.5-5.0); Alkaline Phosphatase 57 U/L (38-126); Amylase 55 U/L (30-110); Anion Gap 11 mmol/L; Blood Urea Nitrogen 18 mg/dL (9-20); Calcium 9.5 mg/dL (8.4-10.2); Carbon Dioxide 22 mmol/L (22-30); Chloride 105 mmol/L (98-107); Glucose 162 mg/dL (74-99); Lipase 73 U/L (23-300); Non-African American GFR(CKD) >90 (>60 ml/min/1.73 sqM); Potassium 4.3 mmol/L (3.5-5.1); Sodium 138 mmol/L (137-145); Total Bilirubin 0.6 mg/dL (0.2-1.3)
--- NOTE | 2021-05-02 14:13 | CT ---
EXAMINATION TYPE: CT abdomen pelvis wo con DATE OF EXAM: 05/02/2021 COMPARISON: 08/30/2015 HISTORY: Abdominal pain, left side since this am CT DLP: 1063.4 mGycm Examination of the solid and hollow viscera is limited given the lack of contrast. FINDINGS: LUNG BASES: No evidence for nodule. Left lower lobe atelectasis. LIVER/GB: The gallbladder is unremarkable. No space-occupying hepatic lesion. PANCREAS: No pancreatic mass identified. No inflammatory process seen. SPLEEN: No evidence for splenomegaly. No intrasplenic lesions seen. ADRENALS: No adrenal nodules identified. No evidence for thickening. KIDNEYS: No evidence for renal mass. No nephrolithiasis. No hydronephrosis. BOWEL: Appendix has a normal appearance. Inflammatory change and wall thickening involving the mid as cending colon compatible with diverticulitis. No evidence of perforation or abscess at this time. Rem aining small and large bowel of normal caliber. Lymph nodes: No evidence for adenopathy greater than 1 cm. Abdominal aorta: Atheromatous changes seen. No evidence for aneurysm. Genital organs: No significant abnormality. Other: No significant abnormality. IMPRESSION: Inflammatory change and wall thickening involving the mid ascending colon compatible with diverticuli tis. No evidence of perforation or abscess at this time.
[2021-05-02 14:19] LABS: Appearance,Urine Clear (Clear); Bilirubin,Urine Negative (Negative); Blood,Urine Negative (Negative); Color,Urine Colorless; Glucose,Urine (UA) Negative (Negative); Ketones,Urine Negative (Negative); Leukocyte Esterase,Urine Negative (Negative); Nitrite,Urine Negative (Negative); PH, Urine 5.5 (5.0-8.0); Protein,Urine Negative (Negative); Specific Gravity,Urine 1.004 (1.001-1.035); Urobilinogen,Urine <2.0 mg/dL (<2.0)
[2021-05-02] MEDS ORDERED: cefTRIAXone IN SWFI 1,000 MG/10 ML SYRINGE IVP STA (14:24)
[2021-05-02] MEDS ORDERED: ACET/COD 300 MG/30 MG STARTER PACK 6 TAB BTL PO STA (14:24)
[2021-05-02 14:54] VITALS: RESP 18
[2021-05-02 14:55] VITALS: BP 160/100; PULSE 57
== END 2021-05-02 14:55 | disposition home or self-care (01) ==
LOC: EC 12:13
DX: K57.32 Diverticulitis of large intestine without perforation or abscess without bleeding (principal); I10 Essential (primary) hypertension; I48.91 Unspecified atrial fibrillation; F12.90 Cannabis use, unspecified, uncomplicated; Z79.899 Other long term (current) drug therapy
CPT/HCPCS: 36415; 80053; 82150; 83690; 85025; 81003; 74176; 96374; 96375 ×2; 96361; 99284; J2405; J0696; J1885

== ENCOUNTER → 2021-07-18 | Outpatient (CLI) | payer OTHER ==
--- NOTE | 2021-07-18 08:25 | MR ---
EXAMINATION TYPE: MR brain wo con DATE OF EXAM: 07/18/2021 COMPARISON: NONE HISTORY: Head trauma on left side forehead and eye, headache, blurred vision TECHNIQUE: Multiplanar, multisequence imaging of the brain and brainstem is performed without IV cont rast. FINDINGS: Diffusion weighted images demonstrate no evidence of a recent infarct or other diffusion abnormality. The ventricular system and cisternal spaces are normal in size and appearance. The brain volume is a ge appropriate. Some scattered foci of T2 hyperintensity is seen throughout the white matter bilatera lly. Approximately 15 lesions are seen. The lesions are nonspecific in appearance and distribution. T 2 Star weighted images show no definitive abnormal intraparenchymal blood products. Midline structures demonstrate normal morphology. The craniocervical junction appears within normal limits. Normal vascular flow voids are present. Moderate to severe mucosal thickening bilateral ethmo id sinuses. Mild mucosal thickening bilateral inferior frontal sinuses. Small mucous retention cyst o r polyp left anterior sphenoid sinus axial image 8. Mucosal thickening anterior aspect bilateral maxi llary sinuses. Globes are intact bilaterally. IMPRESSION: Chronic paranasal sinus disease as detailed above. Mild nonspecific white matter changes presumed on the basis of product of chronic small vessel ischemic change in patient of this age.
== END | disposition home or self-care (01) ==
LOC: RADMRIMAIN 07:35
PROVIDERS: ATTEND Internal Medicine
DX: S09.90XA Unspecified injury of head, initial encounter (principal); R51.9 Headache, unspecified
CPT/HCPCS: 70551

== ENCOUNTER 2021-11-23 10:52 | Observation (INO) | payer OTHER ==
[2021-11-23] MEDS ORDERED: HEPARIN SODIUM 1,000 UN/ML (10ML VL) IV ONE (11:40)
[2021-11-23] MEDS ORDERED: SODIUM CHLORIDE 0.9% 1,000 ML IV STA (11:40)
[2021-11-23] MEDS ORDERED: DILTIAZEM DRIP BOLUS FROM BAG 1 MG SOLN IV ONE (11:40)
[2021-11-23] MEDS ORDERED: ASPIRIN 81 MG PO STA (11:40)
--- NOTE | 2021-11-23 11:45 | ED ---
Arrhythmia/Palpitations HPI - General Chief Complaint: Arrhythmia/Palpitations Stated Complaint: poss AFIB Time Seen by Provider: 11/23/21 11:13 Source: patient, RN notes reviewed Mode of arrival: wheelchair Limitations: no limitations - History of Present Illness Initial Comments: 51-year-old male with a prior history of atrial fibrillation who presents today with complaints of sudden onset last evening of irregular heartbeat. He states around 6 PM he noticed a thump been no use back in atrial fibrillation he has had some nausea and some pressure-like discomfort in the chest area. No fevers chills sweats no vomiting. He states he ran out of [email or web address] and is not on Rythmol at this time due to insurance problems. He was recommended to come the emergency department by his doctor. Patient does state that he felt the symptoms were different than his usual symptoms. MD Complaint: rapid heart beat, palpitations, atrial fibrillation - Related Data Home Medications Medication Instructions Recorded Confirmed Metoprolol Tartrate [Lopressor] 25 mg PO BID 09/14/20 11/23/21 amLODIPine BESYLATE/BENAZEPRIL 1 cap PO DAILY 09/14/20 11/23/21 [Lotrel 10-40 MG] Esomeprazole Magnesium [NexIUM 20 mg PO DAILY 05/02/21 11/23/21 24Hr] Allergies Allergy/AdvReac Type Severity Reaction Status Date / Time Penicillins AdvReac Fever Verified 11/23/21 12:52 Review of Systems ROS Statement: Those systems with pertinent positive or pertinent negative responses have been documented in the HPI. ROS Other: All systems not noted in ROS Statement are negative. Past Medical History Past Medical History: Atrial Fibrillation, Hypertension Additional Past Medical History / Comment(s): abdominal hernia History of Any Multi-Drug Resistant Organisms: None Reported Past Surgical History: Hernia Repair Additional Past Surgical History / Comment(s): finger sx Past Anesthesia/Blood Transfusion Reactions: No Reported Reaction Past Psychological History: No Psychological Hx Reported Smoking Status: Never smoker Past Alcohol Use History: Rare Past Drug Use History: Marijuana - Past Family History Mother Family Medical History: COPD Additional Family Medical History / Comment(s): Mother of emphysema. She was a smoker. Father History Unknown: Yes Family Additional Family Medical History / Comment(s): Reports strong family history of heart disease, lung cancer General Exam - General Exam Comments Initial Comments: This is a well-developed well-nourished awake alert oriented times 3 male Limitations: no limitations General appearance: alert, in no apparent distress Head exam: Present: atraumatic, normocephalic, normal inspection Eye exam: Present: normal appearance, PERRL, EOMI. Absent: scleral icterus, conjunctival injection, periorbital swelling ENT exam: Present: normal exam, mucous membranes moist Neck exam: Present: normal inspection, full ROM, other (No stridor JVD or bruits). Absent: tenderness, meningismus, lymphadenopathy Respiratory exam: Present: normal lung sounds bilaterally. Absent: respiratory distress, wheezes, rales, rhonchi, stridor Cardiovascular Exam: Present: tachycardia, irregular rhythm. Absent: systolic murmur, diastolic murmur, rubs, gallop, clicks GI/Abdominal exam: Present: soft, normal bowel sounds. Absent: distended, tenderness, guarding, rebound, rigid Extremities exam: Present: normal inspection, full ROM, normal capillary refill. Absent: tenderness, pedal edema, joint swelling, calf tenderness Back exam: Present: normal inspection Neurological exam: Present: alert, oriented X3, CN II-XII intact Psychiatric exam: Present: normal affect, normal mood Skin exam: Present: warm, dry, intact, normal color. Absent: rash Course Vital Signs 11/23/21 10:58 Temperature 97.7 F Pulse Rate 83 Respiratory 18 Rate Blood Pressure 134/96 - Reevaluation(s) Reevaluation #1: 11/23/21 13:13 Reevaluation finds the patient's heart rate has improved though he still nature fibrillation. Symptoms have improved the. EKG Findings - EKG Results: EKG: interpreted by ERMD (Atrial fibrillation rate of 108 QRS 96 QT since QTC 344/407 poor R-wave progression noted) Medical Decision Making - Medical Decision Making Patient does demonstrate atrial fibrillation with a rapid ventricular response as well as atypical chest pain. Patient will be admitted for inpatient evaluation and treatment case discussed with Dr. Santiago. Cardiology will be consulted. - Lab Data Result diagrams: 11/23/21 11:49 11/23/21 11:49 Lab Results 11/23/21 11/23/21 11/23/21 Range/Units 11:49 11:49 11:49 WBC 7.2 (3.8-10.6) k/uL RBC 5.95 H (4.30-5.90) m/uL Hgb 18.4 H (13.0-17.5) gm/dL Hct 53.0 (39.0-53.0) % MCV 89.1 (80.0-100.0) fL MCH 31.0 (25.0-35.0) pg MCHC 34.8 (31.0-37.0) g/dL RDW 12.3 (11.5-15.5) % Plt Count 182 (150-450) k/uL MPV 7.8 Neutrophils % 61 % Lymphocytes % 26 % Monocytes % 7 % Eosinophils % 3 % Basophils % 1 % Neutrophils # 4.3 (1.3-7.7) k/uL Lymphocytes # 1.8 (1.0-4.8) k/uL Monocytes # 0.5 (0-1.0) k/uL Eosinophils # 0.2 (0-0.7) k/uL Basophils # 0.1 (0-0.2) k/uL PT 11.2 (9.0-12.0) sec INR 1.0 (<1.2) APTT 22.8 (22.0-30.0) sec Sodium 140 (137-145) mmol/L Potassium 4.5 (3.5-5.1) mmol/L Chloride 107 (98-107) mmol/L Carbon Dioxide 23 (22-30) mmol/L Anion Gap 10 mmol/L BUN 19 (9-20) mg/dL Creatinine 1.01 (0.66-1.25) mg/dL Est GFR (CKD-EPI)AfAm >90 (>60 ml/min/1.73 sqM) Est GFR (CKD-EPI)NonAf 85 (>60 ml/min/1.73 sqM) Glucose 129 H (74-99) mg/dL Calcium 9.5 (8.4-10.2) mg/dL Magnesium 2.1 (1.6-2.3) mg/dL Total Bilirubin 1.2 (0.2-1.3) mg/dL AST 29 (17-59) U/L ALT 30 (4-49) U/L Alkaline Phosphatase 63 (38-126) U/L Troponin I (0.000-0.034) ng/mL Total Protein 8.3 H (6.3-8.2) g/dL Albumin 4.8 (3.5-5.0) g/dL TSH 0.705 (0.465-4.680) mIU/L 11/23/21 Range/Units 11:49 WBC (3.8-10.6) k/uL RBC (4.30-5.90) m/uL Hgb (13.0-17.5) gm/dL Hct (39.0-53.0) % MCV (80.0-100.0) fL MCH (25.0-35.0) pg MCHC (31.0-37.0) g/dL RDW (11.5-15.5) % Plt Count (150-450) k/uL MPV Neutrophils % % Lymphocytes % % Monocytes % % Eosinophils % % Basophils % % Neutrophils # (1.3-7.7) k/uL Lymphocytes # (1.0-4.8) k/uL Monocytes # (0-1.0) k/uL Eosinophils # (0-0.7) k/uL Basophils # (0-0.2) k/uL PT (9.0-12.0) sec INR (<1.2) APTT (22.0-30.0) sec Sodium (137-145) mmol/L Potassium (3.5-5.1) mmol/L Chloride (98-107) mmol/L Carbon Dioxide (22-30) mmol/L Anion Gap mmol/L BUN (9-20) mg/dL Creatinine (0.66-1.25) mg/dL Est GFR (CKD-EPI)AfAm (>60 ml/min/1.73 sqM) Est GFR (CKD-EPI)NonAf (>60 ml/min/1.73 sqM) Glucose (74-99) mg/dL Calcium (8.4-10.2) mg/dL Magnesium (1.6-2.3) mg/dL Total Bilirubin (0.2-1.3) mg/dL AST (17-59) U/L ALT (4-49) U/L Alkaline Phosphatase (38-126) U/L Troponin I <0.012 (0.000-0.034) ng/mL Total Protein (6.3-8.2) g/dL Albumin (3.5-5.0) g/dL TSH (0.465-4.680) mIU/L - Radiology Data Radiology results: report reviewed, image reviewed Critical Care Time Critical Care Time: Yes Total Critical Care Time: 35 Critical Care Time: Critical care time includes initial presentation with history physical labs x- rays reevaluation patient on several occasions discuss with the patient regarding findings discussion with the admitting physician admission orders and documentation the above. Disposition Clinical Impression: Rapid atrial fibrillation, Atypical chest pain Disposition: ADMITTED IP TO THIS [facility] Condition: Fair Referrals: Edwin Santiago DO [Primary Care Provider] - 1-2 days Decision Date: 11/23/21 Decision Time: 13:14
[2021-11-23 12:02] LABS: Basophils # (A) 0.1 k/uL (0-0.2); Basophils % (A) 1 %; Eosinophils # (A) 0.2 k/uL (0-0.7); Eosinophils % (A) 3 %; HGB 18.4 gm/dL (13.0-17.5); Lymphocytes # (A) 1.8 k/uL (1.0-4.8); Lymphocytes % (A) 26 %; MCHC 34.8 g/dL (31.0-37.0); MCV 89.1 fL (80.0-100.0); Mean Platelet Volume 7.8; Monocytes # (A) 0.5 k/uL (0-1.0); Monocytes % (A) 7 %; Neutrophils # (A) 4.3 k/uL (1.3-7.7); Neutrophils % (A) 61 %; Platelet Count 182 k/uL (150-450); RBC 5.95 m/uL (4.30-5.90); RDW 12.3 % (11.5-15.5); WBC 7.2 k/uL (3.8-10.6)
[2021-11-23 12:07] LABS: Partial Thromboplastin Time 22.8 sec (22.0-30.0); Prothrombin Time 11.2 sec (9.0-12.0)
[2021-11-23] MEDS: HEPARIN SOD,PORK IN 0.45% NACL 25,000 UNIT in 0.45% NACL 1 250ML.BAG IV SCH (12:10)
[2021-11-23] MEDS: DILTIAZEM 125 MG in SODIUM CHLORIDE 0.9% 100 ML IV SCH (12:14)
--- NOTE | 2021-11-23 12:22 | XR ---
EXAMINATION TYPE: XR chest 2V DATE OF EXAM: 11/23/2021 COMPARISON: X-ray dated 04/08/2021 HISTORY: Dysrhythmia TECHNIQUE: Frontal and lateral views of the chest are obtained. FINDINGS: Suspected left basal pulmonary atelectasis. Subtle infiltration at that location cannot be excluded, please correlate clinically. Mild left apical pleural thickening. Grossly unremarkable lungs otherwis e. No sizable pleural effusion or definite pneumothorax. No gross cardiomegaly. Degenerative changes of the lower cervical, thoracic spine and acromioclavicular joints. IMPRESSION: As above.
[2021-11-23 12:29] LABS: ALT 30 U/L (4-49); AST 29 U/L (17-59); African American GFR (CKD) >90 (>60 ml/min/1.73 sqM); Albumin 4.8 g/dL (3.5-5.0); Alkaline Phosphatase 63 U/L (38-126); Anion Gap 10 mmol/L; Blood Urea Nitrogen 19 mg/dL (9-20); Calcium 9.5 mg/dL (8.4-10.2); Carbon Dioxide 23 mmol/L (22-30); Chloride 107 mmol/L (98-107); Glucose 129 mg/dL (74-99); Magnesium 2.1 mg/dL (1.6-2.3); Non-African American GFR(CKD) 85 (>60 ml/min/1.73 sqM); Potassium 4.5 mmol/L (3.5-5.1); Sodium 140 mmol/L (137-145); Total Bilirubin 1.2 mg/dL (0.2-1.3); Total Protein 8.3 g/dL (6.3-8.2)
[2021-11-23] MEDS ORDERED: NITROGLYCERIN SL TABS 0.4 MG TAB SUBLINGUAL PRN (13:15)
[2021-11-23] MEDS: SODIUM CHLORIDE 0.9% 1,000 ML IV SCH (13:27)
[2021-11-23] MEDS ORDERED: METOPROLOL TARTRATE 25 MG TAB PO SCH (21:00)
[2021-11-23] MEDS ORDERED: HEPARIN SODIUM 1,000 UN/ML (10ML VL) IV PRN (22:55)
[2021-11-24] MEDS: PANTOPRAZOLE 40 MG TABLET PO SCH (05:54)
[2021-11-24] MEDS: DILTIAZEM 125 MG in SODIUM CHLORIDE 0.9% 100 ML IV SCH (05:54)
[2021-11-24] MEDS: HEPARIN SOD,PORK IN 0.45% NACL 25,000 UNIT in 0.45% NACL 1 250ML.BAG IV SCH (05:55)
[2021-11-24] MEDS ORDERED: FLECAINIDE 50 MG TAB PO STA (07:57)
[2021-11-24] MEDS ORDERED: HEPARIN SODIUM 1,000 UN/ML (10ML VL) IV PRN (08:00)
[2021-11-24] MEDS ORDERED: HEPARIN SOD,PORK IN 0.45% NACL 25,000 UNIT in 0.45% NACL 1 250ML.BAG IV SCH (08:00)
[2021-11-24] MEDS: lisinopriL 20 MG TAB PO SCH (08:23)
[2021-11-24] MEDS: amLODIPine 10 MG TAB PO SCH (08:23)
[2021-11-24] MEDS ORDERED: ASPIRIN 325 MG TAB PO SCH (09:00)
[2021-11-24] MEDS ORDERED: METOPROLOL SUCCINATE (ER) 50 MG TAB.ER.24H PO SCH (09:00)
[2021-11-24] MEDS ORDERED: APIXABAN 5 MG TAB PO SCH ×2 (09:00)
[2021-11-24] MEDS: APIXABAN 5 MG TAB PO SCH ×2 (09:01→19:46)
[2021-11-24 09:44] LABS: Chol/HDL Ratio 5.32 Ratio; LDL Cholesterol,Calculated 103.7 mg/dL (0.0-131.0)
--- NOTE | 2021-11-24 09:47 | P.CRDCN ---
History of Present Illness History of present illness: HISTORY OF PRESENTING ILLNESS This is a pleasant 51-year-old male past medical history significant for paroxysmal atrial fibrillation and was on Eliquis stopped taking secondary to insurance issues, hypertension, type 2 diabetes,obstructive sleep apnea not on CPAP, former smoker, former alcohol use. He used to follow with Dr. Zambrano last follow up in 2019. We have been asked to see in consultation for atrial fibrillation. Patient presents to the emergency department with symptoms of pal pitations, nausea, lightheadedness, mild shortness of breath that started Sunday11/23/2019 tonight. He states that he went to work the next day and continued to have symptoms. He states that these symptoms are similar to when he was in atrial fibrillation years ago.he states he left work yesterday and presented to the emergency department. He was found to be in atrial fibrillation HR 110. he denies any chest pain, dizziness, syncope or near syncope. He denies any symptoms of orthopnea or PND. DIAGNOSTICS EKG reveals atrial fibrillation, heart rate 108, no acute ST-T wave abnormalities to suggest ischemia Telemetry tracings indicate atrial fibrillation with controlled ventricular rates Chest xray no acute cardiopulmonary process Laboratory reviewed, WBC 7.2, hemoglobin 18.4, platelets 182, sodium 140, potassium 4.5, BUN 19, serum creatinine 1.0, Mag 2.1, troponin negative x3 , TSH within normal limits Current home medications include amlodipine/benazepril 1040mg daily, metoprolol titrate 25 mg BID, Nexium Echocardiogram and 2019 revealed EF of 5560 percent, mild mitral regurgitation, mild tricuspid regurgitation, mild concentric LVH. REVIEW OF SYSTEMS At the time of my exam: CONSTITUTIONAL: Denies fever or chills. CARDIOVASCULAR: Denies chest pain, shortness of breath, orthopnea, PND Reports palpitations. RESPIRATORY: Denies cough. GASTROINTESTINAL: Denies abdominal pain, diarrhea, constipation, nausea or vomiting. MUSCULOSKELETAL: Denies myalgias. NEUROLOGIC: Denies numbness, tingling, headache or weakness. ENDOCRINE: Denies fatigue, weight change, polydipsia or polyurina. GENITOURINARY: Denies burning, hematuria or urgency with micturation. HEMATOLOGIC: Denies history of anemia or bleeding. PHYSICAL EXAMINATION Vitals Reviewed CONSTITUTIONAL: No apparent distress. HEENT: Head is normocephalic. Pupils are equal, round. Sclerae anicteric. Mucous membranes of the mouth are moist. No JVD. No carotid bruit. CHEST EXAMINATION: Lungs are clear to auscultation. No chest wall tenderness is noted on palpation or with deep breathing. HEART EXAMINATION: Irregular rate and rhythm. S1, S2 heard. No murmurs, gallops or rub. ABDOMEN: Soft, nontender. Positive bowel sounds. EXTREMITIES: 2+ peripheral pulses, no lower extremity edema and no calf tenderness. SKIN: warm, dry NEUROLOGIC EXAMINATION: Patient is awake, alert and oriented x3. ASSESSMENT Paroxysmal atrial fibrillation -[id number] score 2 Type 2 Diabetes History of hypertension Obstructive sleep apnea Former tobacco use Former ETOH PLAN Obtain 2D echocardiogram Stop IV Cardizem Give flecainide 100mg PO once Start metoprolol succinate 50mg daily Stop home metoprolol tartrate Continue amlodipine/benazepril Start Eliquis 5mg BID, case management consulted for coverage, per case manag ement patient has $[address] Gardiner will continue IV heparin at this time If patient converts to sinus mechanism, discontinue IV heparin and ok to discharge home with follow up with Dr. Zambrano in 1-2 weeks. If patient remains in atrial fibrillation, we will make him NPO at midnight and likely cardioversion tomorrow. Recommend sleep study/evaluation with pulmonary outpatient for obstructive sleep apnea and CPAP. Thank you kindly for this consultation Nurse practitioner note has been reviewed by physician. Signing provider agrees with the documented findings, assessment, and plan of care. Past Medical History Past Medical History: Atrial Fibrillation, Hypertension Additional Past Medical History / Comment(s): abdominal hernia History of Any Multi-Drug Resistant Organisms: None Reported Past Surgical History: Hernia Repair Additional Past Surgical History / Comment(s): finger sx Past Anesthesia/Blood Transfusion Reactions: No Reported Reaction Past Psychological History: No Psychological Hx Reported Smoking Status: Never smoker Past Alcohol Use History: Rare Past Drug Use History: Marijuana - Past Family History Mother Family Medical History: COPD Additional Family Medical History / Comment(s): Mother of emphysema. She was a smoker. Father History Unknown: Yes Family Additional Family Medical History / Comment(s): Reports strong family history of heart disease, lung cancer Medications and Allergies Home Medications Medication Instructions Recorded Confirmed Type amLODIPine BESYLATE/BENAZEPRIL 1 cap PO DAILY 09/14/20 11/23/21 History [Lotrel 10-40 MG] Esomeprazole Magnesium [NexIUM 20 mg PO DAILY 05/02/21 11/23/21 History 24Hr] Apixaban [Eliquis] 5 mg PO BID 30 Days #60 tab 11/24/21 Rx Allergies Allergy/AdvReac Type Severity Reaction Status Date / Time Penicillins AdvReac Fever Verified 11/23/21 12:52 Physical Exam Vitals: Vital Signs Temp Pulse Resp BP Pulse Ox 11/23/21 13:01 80 18 136/96 98 11/23/21 10:58 97.7 F 83 18 134/96 Intake and Output 11/22/21 11/23/21 11/23/21 22:59 06:59 14:59 Other: Weight 113.398 kg Results 11/23/21 11:49 11/23/21 11:49 Cardiac Enzymes 11/23/21 11/23/21 Range/Units 11:49 11:49 AST 29 (17-59) U/L Troponin I <0.012 (0.000-0.034) ng/mL Coagulation 11/23/21 Range/Units 11:49 PT 11.2 (9.0-12.0) sec APTT 22.8 (22.0-30.0) sec CBC 11/23/21 Range/Units 11:49 WBC 7.2 (3.8-10.6) k/uL RBC 5.95 H (4.30-5.90) m/uL Hgb 18.4 H (13.0-17.5) gm/dL Hct 53.0 (39.0-53.0) % Plt Count 182 (150-450) k/uL Comprehensive Metabolic Panel 11/23/21 Range/Units 11:49 Sodium 140 (137-145) mmol/L Potassium 4.5 (3.5-5.1) mmol/L Chloride 107 (98-107) mmol/L Carbon Dioxide 23 (22-30) mmol/L BUN 19 (9-20) mg/dL Creatinine 1.01 (0.66-1.25) mg/dL Glucose 129 H (74-99) mg/dL Calcium 9.5 (8.4-10.2) mg/dL AST 29 (17-59) U/L ALT 30 (4-49) U/L Alkaline Phosphatase 63 (38-126) U/L Total Protein 8.3 H (6.3-8.2) g/dL Albumin 4.8 (3.5-5.0) g/dL Current Medications Generic Name Dose Route Start Last Admin Trade Name Freq PRN Reason Stop Dose Admin Amlodipine Besylate 10 mg 11/24/21 09:00 Amlodipine 10 Mg Tab PO DAILY ULISES Aspirin 325 mg 11/24/21 09:00 Aspirin 325 Mg Tab PO DAILY ULISES Sodium Chloride 1,000 mls @ 75 mls/hr 11/23/21 11:40 11/23/21 12:04 Saline 0.9% IV 11/24/21 00:59 75 mls/hr .[id number] STA Administration Diltiazem HCl 125 mg/ Sodium 125 mls @ 5 mls/hr 11/23/21 12:00 11/23/21 12:14 Chloride IV 5 mg/hr .Q24H ULISES 5 mls/hr Administration 5 MG/HR Heparin Sodium/Sodium Chloride 250 mls @ 10.002 mls/hr 11/23/21 11:45 11/23/21 12:10 25,000 unit/ Sodium Chloride IV 8.82 units/kg/hr .Q24H ULISES 10.002 mls/hr Administration Protocol 8.82 UNITS/KG/HR Sodium Chloride 1,000 mls @ 20 mls/hr 11/23/21 13:15 11/23/21 13:27 Saline 0.9% IV 20 mls/hr .Q24H ULISES Administration Lisinopril 40 mg 11/24/21 09:00 Lisinopril 20 Mg Tab PO DAILY [facility] Metoprolol Tartrate 25 mg 11/23/21 21:00 Metoprolol Tartrate 25 Mg Tab PO BID ULISES Nitroglycerin 0.4 mg 11/23/21 13:15 Nitroglycerin Sl Tabs 0.4 Mg Tab SUBLINGUAL Q5M PRN Chest Pain Pantoprazole Sodium 40 mg 11/24/21 07:30 Pantoprazole 40 Mg Tablet PO AC-[id number] ULISES Intake and Output 11/22/21 11/23/21 11/23/21 22:59 06:59 14:59 Other: Weight 113.398 kg Patient Weight 11/24/21 06:59 Weight 113.398 kg 11/23/21 11:49 11/23/21 11:49
--- NOTE | 2021-11-24 11:25 | CA ---
Transthoracic Echo Report Name: Juan Beck Age: 51 Gender: M : 1970 Exam Date: 11/24/2021 09:51 Exam Location: [facility] Ht (in): 75 Wt (lb): 250 Ordering Physician: Kierra Dodd Attending/Referring Phys: Associate Professor Of Engineering Nel Shah RDCS Procedure CPT: Indications: a fib Cardiac Hx: Technical Quality: Excellent Contrast 1: Total Dose (mL): Contrast 2: Total Dose (mL): MEASUREMENTS (Male / Female) Normal Values 2D ECHO LV Diastolic Diameter PLAX 5.3 cm 4.2 - 5.9 / 3.9 - 5.3 cm LV Systolic Diameter PLAX 3.3 cm IVS Diastolic Thickness 1.4 cm 0.6 - 1.0 / 0.6 - 0.9 cm LVPW Diastolic Thickness 1.4 cm 0.6 - 1.0 / 0.6 - 0.9 cm LV Relative Wall Thickness 0.5 RV Internal Dim ED PLAX 3.1 cm LA Systolic Diameter LX 4.0 cm 3.0 - 4.0 / 2.7 - 3.8 cm LA Volume 54.2 cm??? 18 - 58 / 22 - 52 cm??? M-MODE Aortic Root Diameter MM 3.3 cm MV E Point Septal Separation 0.9 cm AV Cusp Separation MM 2.5 cm DOPPLER AV Peak Velocity 125.8 cm/s AV Peak Gradient 6.3 mmHg MV Area PHT 3.6 cm??? MV Deceleration Time 209.2 ms TR Peak Velocity 205.2 cm/s TR Peak Gradient 16.8 mmHg Right Ventricular Systolic Press 21.8 mmHg FINDINGS Left Ventricle Left ventricular ejection fraction is estimated at 45-50 %. Left ventricular cavity size normal. Moderate concentric left ventricular hypertrophy. Right Ventricle Normal right ventricular size and function. Right ventricular systolic pressure within normal limits. Right Atrium Normal right atrial size. Normal right atrial size. Left Atrium Normal left atrial size. No evidence for an atrial septal defect. Mitral Valve Mitral valve not well visualized. No mitral stenosis, regurgitation or prolapse. Aortic Valve Trileaflet aortic valve. No aortic valve stenosis or regurgitation. Tricuspid Valve Mild tricuspid regurgitation. Pulmonic Valve Trace pulmonic regurgitation. Pericardium Normal pericardium. Aorta Normal size aortic root and proximal ascending aorta. CONCLUSIONS Mild LV systolic dysfunction Mild mitral regurgitation Previewed by: Dr. John Mayes MD (Electronically Signed) Final Date: 24 Nov 2021 11:24
--- NOTE | 2021-11-24 16:01 | XR ---
EXAMINATION TYPE: XR foot complete RT DATE OF EXAM: 11/24/2021 COMPARISON: None available INDICATION: Pain TECHNIQUE: Standard 3 views of the right foot FINDINGS: Osteopenia. No definite acute fracture line identified. Inferior calcaneal spur with tiny posterior c alcaneal enthesophytosis at the insertion of the Achilles tendon. Suspected ankle degenerative change s. IMPRESSION: No definite acute fracture line identified.
--- NOTE | 2021-11-24 16:06 | P.HPIM ---
History of Present Illness H&P Date: 11/24/21 Chief Complaint: Chest palpitations, tightness, shortness of breath This is a 51-year-old male with history of hypertension, atrial fibrillation not on anticoagulation related to insurance issues, daily marijuana use, significant caffeine intake, sleep apnea, obesity, diabetes mellitus type 2 and multiple other medical issues presented to ER with the complaints of chest tightness, palpitations, shortness of breath occurring after work while at rest yesterday. EKG on admission reported atrial fibrillation with heart rates of 108. Troponins negative 3. Echo pending. Chest x-ray reported chronic changes, non-acute, left basal pulmonary atelectasis.WBC 7.2, hemoglobin 18.4, platelets 182, sodium 140, potassium 4.5, glucose 129, BUN 19, serum creatinine 1.0, Mag 2 .1, TSH within normal limits. Lipid panel pending. Currently denies chest pain, palpitations or shortness of breath. Denies any syncope. Review of Systems ROS Statement: Those systems with pertinent positive or pertinent negative responses have been documented in the HPI. ROS Other: All systems not noted in ROS Statement are negative. Past Medical History Past Medical History: Atrial Fibrillation, Hypertension Additional Past Medical History / Comment(s): abdominal hernia History of Any Multi-Drug Resistant Organisms: None Reported Past Surgical History: Hernia Repair Additional Past Surgical History / Comment(s): finger sx Past Anesthesia/Blood Transfusion Reactions: No Reported Reaction Past Psychological History: No Psychological Hx Reported Smoking Status: Never smoker Past Alcohol Use History: Rare Past Drug Use History: Marijuana - Past Family History Mother Family Medical History: COPD Additional Family Medical History / Comment(s): Mother of emphysema. She was a smoker. Father History Unknown: Yes Family Additional Family Medical History / Comment(s): Reports strong family history of heart disease, lung cancer Medications and Allergies Home Medications Medication Instructions Recorded Confirmed Type amLODIPine BESYLATE/BENAZEPRIL 1 cap PO DAILY 09/14/20 11/23/21 History [Lotrel 10-40 MG] Esomeprazole Magnesium [NexIUM 20 mg PO DAILY 05/02/21 11/23/21 History 24Hr] Apixaban [Eliquis] 5 mg PO BID 30 Days #60 tab 11/24/21 Rx Allergies Allergy/AdvReac Type Severity Reaction Status Date / Time Penicillins AdvReac Fever Verified 11/23/21 12:52 Physical Exam Vitals: Vital Signs Temp Pulse Resp BP Pulse Ox 11/24/21 11:41 98 F 58 L 20 145/97 97 11/24/21 08:00 97.8 F 75 20 140/92 98 11/24/21 03:40 98.2 F 75 18 144/86 98 11/24/21 01:39 18 11/23/21 23:06 97.9 F 64 18 129/83 95 11/23/21 20:00 18 11/23/21 19:43 98 F 84 18 132/93 95 11/23/21 18:01 70 18 125/76 95 11/23/21 14:45 98.1 F 90 18 132/102 97 Intake and Output 11/23/21 11/24/21 11/24/21 22:59 06:59 14:59 Intake Total 120 588.832 180 Balance 120 588.832 180 Intake: Intake, IV Titration 288.832 Amount Diltiazem 125 mg In 88.333 Sodium Chloride 0.9% 100 ml @ 5 MG/HR 5 mls/hr IV .Q24H ULISES Rx#:[id number] Heparin Sod,Pork in 0.45% 200.499 NaCl 25,000 unit In 0.45 % NaCl 1 250ml.bag @ 8.82 UNITS/KG/HR 10.002 mls/ hr IV .Q24H ULISES Rx#: [id number] Oral 120 300 180 Other: Voiding Method Toilet Toilet # Voids 1 1 Weight 113.398 kg PHYSICAL EXAM: VITAL SIGNS: As above GENERAL: Sitting up in bed, no acute distress HEENT: Conjunctivae normal. eyes normal. NECK: No JVD. No thyroid enlargement. No LNs CARDIOVASCULAR: S1, S2 regular, irregular No murmur RESPIRATION: Breath sounds diminished in the bases. No rhonchi or crackles. No bronchial breathing. ABDOMEN: Soft, nontender . No guarding. no masses palpable. No ascites, No hepatosplenomegaly.Bowel sounds heard. LEGS: No edema. no swelling. PSYCHIATRY: Alert and oriented X3, mood and affect normal. NERVOUS SYSTEM: Cranial N 2-12 grossly normal. No focal deficits. Strength and sensation grossly intact. Skin: Warm and dry, no rash Results CBC & Chem 7: 11/23/21 11:49 11/23/21 11:49 Labs: Abnormal Lab Results - Last 24 Hours (Table) 11/24/21 11/24/21 Range/Units 06:27 06:27 APTT 30.9 H (22.0-30.0) sec Triglycerides 261.00 H (0.00-149.00) mg/dL VLDL Cholesterol, Calc 52.20 H (5.00-40.00) mg/dL HDL Cholesterol 36.10 L (40.00-60.00) mg/dL Thrombosis Risk Factor Assmnt - Choose All That Apply Any of the Below Risk Factors Present?: Yes Each Factor Represents 1 point: Age 41-60 years, Obesity (BMI >25) Other Risk Factors: No Other congenital or acquired thrombophilia - If yes, enter type in comment: No Thrombosis Risk Factor Assessment Total Risk Factor Score: 2 Thrombosis Risk Factor Assessment Level: Low Risk Assessment and Plan Assessment: Acute on Chronic Paroxysmal atrial fibrillation with RVR Heavy caffeine intake Diabetes mellitus type 2 Daily marijuana use Prior history of alcohol use Hypertension Obstructive Sleep apnea Obesity, BMI 31.2 Plan: Continue on current medication regime ,monitoring and symptomatic treatment. Continue on heparin and Cardizem drips as per cardiology. Echo pending. Further adjustment in anticoagulation/antiarrhythmics as per cardiology. Also complains of recent right foot injury reporting he torqued his foot as he was stepping on unlevel/uneven ground between the grass and sidewalk, sustaining continuous ongoing pain-x-ray ordered. Discharge planning in progress, pending converting to sinus rhythm, final DC recommendations and clearance per cardiology. The impression and plan of care has been dictated as directed. : I performed a history and examination of this patient, discussed the same with the dictator. I agree with the dictator's note ,documented as a scribe. Any additional findings or plans will be noted.
[2021-11-24] MEDS: SODIUM CHLORIDE 0.9% 1,000 ML IV SCH (19:30)
[2021-11-24] MEDS ORDERED: FLECAINIDE 50 MG TAB PO SCH (21:00)
[2021-11-24] MEDS ORDERED: ATORVASTATIN 40 MG TAB PO SCH (21:00)
[2021-11-25] MEDS: PANTOPRAZOLE 40 MG TABLET PO SCH (06:06)
[2021-11-25 07:37] VITALS: BP 158/97; PULSE 60; RESP 14; TEMP 97.8
[2021-11-25] MEDS ORDERED: CAFFEINE CITRATE 60 MG/3 ML VIAL IV PRN (08:18)
[2021-11-25] MEDS ORDERED: AMINOPHYLLINE 500 MG/20 ML VIAL IV PRN (08:18)
[2021-11-25] MEDS ORDERED: REGADENOSON 0.4 MG/5 ML SYRINGE IV PRN (08:18)
[2021-11-25] MEDS: lisinopriL 20 MG TAB PO SCH (08:24)
[2021-11-25] MEDS: amLODIPine 10 MG TAB PO SCH (08:25)
[2021-11-25] MEDS: APIXABAN 5 MG TAB PO SCH (08:25)
--- NOTE | 2021-11-25 11:57 | NM ---
EXAMINATION TYPE: NM stress lexiscan cardiolite DATE OF EXAM: 11/25/2021 COMPARISON: NONE HISTORY: History of hypertension and hypercholesteremia presents with chest pain, difficulty breathin g, and palpitations. TECHNIQUE: After the intravenous administration of 9.8 mCi Tc 99m Sestamibi - Cardiolite resting SPE CT images acquired 45 minutes post injection. The patient received 0.4mg Lexiscan, 25.1 mCi Tc 99m Sestamibi - Stress images obtained [address] injection FINDINGS: Polar map suggests some reversible ischemia involving the lateral wall at level of apex, this is not as well identified on raw data images particularly short axis and horizontal long axis views. Finding s should be correlated with EKG and clinical findings. Gated analysis shows normal wall motion with an estimated left ventricular ejection fraction of 53 %. Abnormal end diastolic volume is seen sugges ting underlying dilated cardiomyopathy. Correlate clinically. IMPRESSION: As above.
[2021-11-25] MEDS: SODIUM CHLORIDE 0.9% 1,000 ML IV SCH (12:02)
--- NOTE | 2021-11-25 13:47 | P.PN ---
Subjective This is a pleasant 51-year-old male past medical history significant for paroxysmal atrial fibrillation and was on Eliquis stopped taking secondary to insurance issues, hypertension, type 2 diabetes,obstructive sleep apnea not on CPAP, former smoker, former alcohol use. He used to follow with Dr. Zambrano last follow up in 2019. We have been asked to see in consultation for atrial fibrillation. Patient presents to the emergency department with symptoms of palpitations, nausea, lightheadedness, mild shortness of breath that started Sunday11/23/2019 tonight. He states that he went to work the next day and continued to have symptoms. He states that these symptoms are similar to when he was in atrial fibrillation years ago.he states he left work yesterday and presented to the emergency department. He was found to be in atrial fibrillation HR 110. he denies any chest pain, dizziness, syncope or near syncope. He denies any symptoms of orthopnea or PND. DIAGNOSTICS EKG reveals atrial fibrillation, heart rate 108, no acute ST-T wave abno rmalities to suggest ischemia Telemetry tracings indicate atrial fibrillation with controlled ventricular rates Chest xray no acute cardiopulmonary process Laboratory reviewed, WBC 7.2, hemoglobin 18.4, platelets 182, sodium 140, potassium 4.5, BUN 19, serum creatinine 1.0, Mag 2.1, troponin negative x3 , TSH within normal limits Current home medications include amlodipine/benazepril 1040mg daily, metoprolol titrate 25 mg BID, Nexium Echocardiogram and 2019 revealed EF of 5560 percent, mild mitral regurgitation, mild tricuspid regurgitation, mild concentric LVH. 11/25/2021 Patient seen and examined at bedside, no acute distress. He converted to sinus mechanism yesterday. IV heparin has been stopped and patient transition to Eliquis 5 mg twice a day. IV Cardizem is discontinued. Echocardiogram revealed EF 4550 percent, moderate concentric LVH, mild mitral regurgitation. Patient currently maintained on Eliquis 5 mg twice a day, atorvastatin 40 mg nightly, metoprolol succinate 50 mg daily, flecainide 50 mg twice a day. PHYSICAL EXAMINATION Vitals Reviewed CONSTITUTIONAL: No apparent distress. HEENT: Neck Supple. No JVD. No carotid bruit. CHEST EXAMINATION: Lungs are clear to auscultation. No chest wall tenderness is noted on palpation or with deep breathing. HEART EXAMINATION: Regular rate and rhythm. S1, S2 heard. No murmurs, gallops or rub. ABDOMEN: Soft, nontender. Positive bowel sounds. EXTREMITIES: 2+ peripheral pulses, no lower extremity edema and no calf tenderness. SKIN: warm, dry NEUROLOGIC EXAMINATION: Patient is awake, alert and oriented x3. 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 Recommend Lexiscan stress test prior to discharge Lexiscan stress test report revealed, polar map suggests some reversible isch emia involving the lateral wall to the apex, this is not as well identified and raw data images particular short axis and horizontal long axis views. Findings should be correlated with EKG and clinical findings. Lexiscan stress test were reviewed with Dr. Gardiner, no further workup needed at this time. Recommend sleep study/evaluation with pulmonary outpatient for obstructive sleep apnea and CPAP. Patient stable to be discharged from cardiology perspective, follow-up with Dr. Zambrano in one week Nurse practitioner note has been reviewed by physician. Signing provider agrees with the documented findings, assessment, and plan of care. Objective - Vital Signs Vital signs: Vital Signs Temp 97.8 F 11/25/21 07:36 Pulse 60 11/25/21 07:36 Resp 14 11/25/21 07:36 BP 158/97 11/25/21 07:36 Pulse Ox 98 11/25/21 07:36 Intake & Output 11/24/21 11/25/21 11/25/21 18:59 06:59 18:59 Intake Total 654.448 300 Balance 654.448 300 Intake: Intake, IV Titration 294.448 Amount Heparin Sod,Pork in 0.45% 134.448 NaCl 25,000 unit In 0.45 % NaCl 1 250ml.bag @ 8. 818 UNITS/KG/HR 9.999 mls /hr IV .Q24H ULISES Rx#: [id number] Sodium Chloride 0.9% 1, 160 000 ml @ 20 mls/hr IV . Q24H ULISES Rx#:[id number] Oral 360 300 Other: Voiding Method Toilet # Voids 1 - Labs CBC & Chem 7: 11/23/21 11:49 11/23/21 11:49
--- NOTE | 2021-11-25 14:00 | P.DS ---
Providers Date of admission: 11/23/21 13:15 Expected date of discharge: 11/25/21 Attending physician: Edwin Santiago Consults: 11/23/21 13:15 Consult Physician Urgent Consulting Provider: Mark Gardiner Consult Reason/Comments: Atrial fibrillation, chest pain Do you want consulting provider notified?: Yes Primary care physician: Edwin Santiago Hospital Course: Final diagnoses Acute on Chronic Paroxysmal atrial fibrillation with RVR Cardiomyopathy, EF 45-50%, type unclear Heavy caffeine intake Diabetes mellitus type 2 Daily marijuana use Prior history of alcohol use Hypertension Obstructive Sleep apnea Obesity, BMI 31.2 Hospital course:This is a 51-year-old male with history of hypertension, atrial fibrillation not on anticoagulation related to insurance issues, daily marijuana use, significant caffeine intake, sleep apnea, obesity, diabetes mellitus type 2 and multiple other medical issues presented to ER with the complaints of chest tightness, palpitations, shortness of breath occurring after work while at rest yesterday. EKG on admission reported atrial fibrillation with heart rates of 108. Troponins negative 3. Echo pending. Chest x-ray reported chronic ch anges, non-acute, left basal pulmonary atelectasis.WBC 7.2, hemoglobin 18.4, platelets 182, sodium 140, potassium 4.5, glucose 129, BUN 19, serum creatinine 1.0, Mag 2.1, TSH within normal limits. Lipid panel pending. Currently denies chest pain, palpitations or shortness of breath. Denies any syncope. Maintained on heparin and Cardizem drips as per cardiology. Echo pending. Further adjustment in anticoagulation/antiarrhythmics as per cardiology. Also complains of recent right foot injury reporting he torqued his foot as he was stepping on unlevel/uneven ground between the grass and sidewalk, sustaining continuous ongoing pain-x-ray ordered. Discharge planning in progress, pending converting to sinus rhythm, final DC recommendations and clearance per cardiology. Converted to sinus rhythm. Antiarrhythmics, anticoagulants further adjusted as per cardiology-transitioned to Eliquis. Echo reported moderate concentric left ventricular hypertrophy with a decrease in LV function from prior(55-60%) down to 45-50%. Cardiology recommended patient proceed with a Lexiscan stress test prior to discharge and ablation outpatient. Patient will be discharged home today in a stable condition with guarded prognosis pending Lexiscan stress test, final DC recommendations and clearance per cardiology. The impression and plan of care has been dictated as directed. : I performed a history and examination of this patient, discussed the same with the dictator. I agree with the dictator's note ,documented as a scribe. Any additional findings or plans will be noted. Patient Condition at Discharge: Stable Plan - Discharge Summary Discharge Rx Participant: No New Discharge Prescriptions: New Apixaban [Eliquis] 5 mg PO BID 30 Days #60 tab Atorvastatin [Lipitor] 40 mg PO HS 90 Days #90 tab Metoprolol Succinate (ER) [Toprol XL] 50 mg PO DAILY 90 Days #90 tab Continue amLODIPine BESYLATE/BENAZEPRIL [Lotrel 10-40 MG] 1 cap PO DAILY Esomeprazole Magnesium [NexIUM 24Hr] 20 mg PO DAILY Discontinued Metoprolol Tartrate [Lopressor] 25 mg PO BID Discharge Medication List amLODIPine BESYLATE/BENAZEPRIL [Lotrel 10-40 MG] 1 cap PO DAILY 09/14/20 [History] Esomeprazole Magnesium [NexIUM 24Hr] 20 mg PO DAILY 05/02/21 [History] Apixaban [Eliquis] 5 mg PO BID 30 Days #60 tab 11/24/21 [Rx] Atorvastatin [Lipitor] 40 mg PO HS 90 Days #90 tab 11/25/21 [Rx] Metoprolol Succinate (ER) [Toprol XL] 50 mg PO DAILY 90 Days #90 tab 11/25/21 [Rx] Follow up Appointment(s)/Referral(s): David Zambrano MD [STAFF PHYSICIAN] - 1 Week (Office will call you with a follow-up appointment.) Edwin Santiago DO [Primary Care Provider] - 11/30/21 9:00 am (With NP. Kecia) Patient Instructions/Handouts: A-fib (Atrial Fibrillation) (DC) Discharge Disposition: HOME SELF-CARE
--- NOTE | 2021-11-29 13:08 | CA ---
Lexiscan Nuclear Stress Test Report Name: Juan Beck Exam Date: 11/25/2021 10:36 Exam Location: [facility] Stress Ht (in): 75 Wt (lb): 250 BSA: 2.41 Ordering Phys: Kierra Dodd Referring Phys: COOPER,, Technologist: Alf Uriarte Age: 51 Gender: M : 1970 Procedure CPT: Indications: Reflex order-Stress test ICD-10 Codes: Patient History: A-fib, Chest pressure, Shortness of breath, Palpitations, Hypertension, Medications: Amlodipine, Metoprolol, Esomeparzole Magnesium Meds past 24 hrs: Pretest Chest Pain: STRESS TEST Lexiscan Protocol Exercise Duration (min:sec): 01:[address] Depressions (mm): Angina Score: Pemberton Score: Resting HR (bpm): 60 Peak HR (bpm): 87 Resting BP (mmHg): 149 / 94 Peak BP (mmHg): 152 / 97 MPHR: 168 Target HR: 143 % MPHR: 52 METS: 1.0 Total Dose: Peak Dose: Atropine: Double Product: 01852 BP Response: Stress Termination: Completion of Infusion Stress Symptoms: ARM TINGLING Stress Summary: ECG ANALYSIS Resting ECG: Stress ECG: CONCLUSIONS At baseline EKG showed normal sinus rhythm, normal axis, mild nonspecific 0.[address] depressions in lead 3, aVF, V5, V6. Patient recieved IV infusion of Lexiscan 0.4mg and at peak infusion EKG showed no significant change from baseline. Conclusions: 1. Nondiagnostic EKG portion secondary baseline EKG abnormalities. 2. Nuclear imaging to be reported separately. Dr. Wojciech Nicole DO (Electronically Signed) Final Date: 25 Nov 2021 13:04
== END 2021-11-25 13:04 | disposition home or self-care (01) ==
LOC: EC 10:52 → 3SCARD 13:15 → INTOOBSV 13:15 → 3SCARD 14:03 → UNDODISIN 11-25 13:04
PROVIDERS: ADMIT Family Medicine; ATTEND Family Medicine
DX: I48.0 Paroxysmal atrial fibrillation (principal); I42.8 Other cardiomyopathies; E11.9 Type 2 diabetes mellitus without complications; I10 Essential (primary) hypertension; G47.33 Obstructive sleep apnea (adult) (pediatric); E66.9 Obesity, unspecified; Z68.31 Body mass index [BMI] 31.0-31.9, adult; J98.11 Atelectasis; T45.516A Underdosing of anticoagulants, initial encounter; Z91.120 Patient's intentional underdosing of medication regimen due to financial hardship; I08.1 Rheumatic disorders of both mitral and tricuspid valves; K46.9 Unspecified abdominal hernia without obstruction or gangrene; Z87.891 Personal history of nicotine dependence; S99.921A Unspecified injury of right foot, initial encounter; X50.1XXA Overexertion from prolonged static or awkward postures, initial encounter; Y92.096 Garden or yard of other non-institutional residence as the place of occurrence of the external cause; Z79.899 Other long term (current) drug therapy; Z88.0 Allergy status to penicillin; Z82.5 Family history of asthma and other chronic lower respiratory diseases; Z81.2 Family history of tobacco abuse and dependence; Z82.49 Family history of ischemic heart disease and other diseases of the circulatory system; Z80.1 Family history of malignant neoplasm of trachea, bronchus and lung
CPT/HCPCS: 96376 ×3; 96366 ×3; 96368 ×2; 96361; 96365; 99291; 36415; 93005; 93017; 93306; 80061; 80053; 83735; 84443; 84484; 85025; 85610; 85730 ×2; 73630; 71046; 78452; G0378 ×3; A9500; J1644 ×4; J2785; 96374; 96375

== ENCOUNTER 2022-03-27 10:36 | Day surgery (SDC) | payer OTHER ==
[2022-03-23 15:45] VITALS: BMI 31.4
[~2022-03-27 10:36] MED LIST: DEXAMETHASONE SOD PHOSPHATE 4 MG/ML 1 ML VIAL IV ONE; HYDROmorphone 0.5 MG/0.5 ML SYRINGE IVP PRN; ONDANSETRON 4 MG/2 ML VIAL IVP ONE
[2022-03-27] MEDS ORDERED: SODIUM CHLORIDE 0.9% 1,000 ML IV ONE (11:13)
[2022-03-27] MEDS ORDERED: fentaNYL (PF) 50 MCG/ML 2 ML AMP ONE (15:14)
[2022-03-27] MEDS ORDERED: HEPARIN SODIUM,PORCINE 10,000 UNIT/ML 1 ML VIAL ONE (15:14)
[2022-03-27] MEDS ORDERED: PROPOFOL 10 MG/ML 20 ML VIAL IV ONE (15:14)
[2022-03-27] MEDS ORDERED: SUCCINYLCHOLINE CHLORIDE 200 MG/10 ML VIAL IV ONE (15:14)
[2022-03-27] MEDS ORDERED: LIDOCAINE 2% INJ 20 MG/ML (2 ML VIAL) ONE (15:14)
[2022-03-27] MEDS ORDERED: ROCURONIUM 10 MG/ML (5 ML VIAL) IV ONE (15:14)
[2022-03-27] MEDS ORDERED: MIDAZOLAM 2 MG/2 ML VIAL ONE (15:14)
[2022-03-27] MEDS ORDERED: ONDANSETRON 4 MG/2 ML VIAL ONE (15:14)
[2022-03-27] MEDS ORDERED: DEXAMETHASONE SOD PHOSPHATE 10 MG/ML 1 ML VIAL ONE (15:14)
[2022-03-27] MEDS ORDERED: HEPARIN SOD,PORK IN 0.45% NACL 25,000 UNIT in 0.45% NACL 1 250ML.BAG IV ONE (15:19)
--- NOTE | 2022-03-27 15:25 | P.EPPROC ---
- EP Procedure Note Electrophysiology Procedure Note: This is Dr. Gardiner dictating an H/P on this patient The patient was interviewed and examined IMPRESSION / ASSESSMENT: Paroxysmal atrial fibrillation despite stopping alcohol consumption Normal thyroid function Mild cardio myopathy Hypertension with left ventricular hypertrophy Obstructive sleep apnea PLAN: Proceed with PVI Complete abstinence from alcohol use Hypertension management Continue ELIQUIS HPI Patient continues to have palpitations despite stopping alcohol consumption *Function is normal He also has some shortness of breath during A. fib He denies any chest discomfort orthopnea PND No fever chills or rigors ROS: No fever chills or rigors, no cough, phlegm or expectoration, no nausea, vomiting or diarrhea, no hematuria, dysuria, no musculoskeletal complaints, no strokes or seizures, no skin lesions. EXAMINATION: Positive neck veins No orthopnea No lower extremity edema Normal heart sounds regular Clear lungs to rhonchi no crackles REVIEW OF LABS, ECG & MEDICAL DATA amlodipine, benazepril, metoprolol succinate, atorvastatin and ELIQUIS Coronavirus PCR negative
[2022-03-27] MEDS ORDERED: LIDOCAINE 1% INJ 10MG/ML (30 ML VIAL-PF) SQ ONE (15:57)
[2022-03-27] MEDS ORDERED: LACTATED RINGERS 1,000 ML IV ONE (17:19)
[2022-03-27] MEDS ORDERED: ACETAMINOPHEN TAB 325 MG TAB PO PRN (17:46)
--- NOTE | 2022-03-27 17:56 | P.PRLE ---
RE: Juan Beck Dear Edwin Martinez underwent pulmonary vein isolation for management of atrial fibrillation His LV function on intracardiac echo seemed to be in the normal range Resume prior to that he stopped alcohol consumption completely He will continue ELIQUIS at this time and continue his antihypertensive medications too Thank you for entrusting me with the care of the patient Warm regards Sincerely Mark Gardiner
--- NOTE | 2022-03-27 18:00 | P.EPPROC ---
- EP Procedure Note Electrophysiology Procedure Note: PROCEDURE A. fib ablation/PVI DIAGNOSIS Paroxysmal Atrial fibrillation, symptomatic, refractory to therapy RESULT No left atrial appendage mass seen on intracardiac echo Successful A. 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 Procedure performed under general anesthesia Esophagus was intubated. Esophageal temperature monitoring with circa catheter. Esophageal deflection with an endoscope to avoid hypothermia of the esophagus. After initial muscle relaxant use, muscle relaxants were not given thereafter in order to assess phrenic nerve during procedure. Patient prepped and draped as per protocol Cryo ablation-set up with standard preparation of the cryoablation tools done. Femoral Venous access obtained on the right and left groins and sheaths placed Diagnostic catheters for the high right atrium, phrenic nerve stimulation and pacing, His bundle, coronary sinus placed Intracardiac echo catheter placed. Long sheath placed in the right atrium Left and right transseptal catheterization performed under intracardiac echo guidance. Intravenous heparin with aCT above 300 Later, catheter positioning and balloon positioning in the left atrium and pulmonary veins, under intracardiac echo guidance Diagnostic EP study with coronary sinus pacing and recording Baseline measurements: Sinus cycle length 1222, HI interval 144, QRS 101 and QT 416 AH 71 and HV 51 ms High-dose Isuprel was used and burst stimulation was performed from the coronary sinus No atrial fibrillation Transseptal catheterization performed RA pressure 12/9/10 LA pressure 17/8/13 Transseptal catheterization performed with standard sheath. The cryoablation sheath was then placed with an over the wire exchange without any acute compl ications. The cryoablation balloon was placed in the office of each pulmonary vein and all 4 pulmonary veins were isolated. IV dye was injected to confirm occlusion. Goal: achieve complete occlusion of the pulmonary vein, achieve -30 degrees C at 30 seconds and achieve -40 degrees C at 60 seconds and a time to effect of less than 60 seconds. If not, the balloon was repositioned to obtain this result After completion of Cryoblation with durations from 180-240 seconds, entrance block was confirmed with the Attain circular catheter in a roving fashion around the antrum of the pulmonary veins Phrenic nerve pacing was performed from the SVC, right innominate vein area and diaphragm voltage was monitored. Diaphragmatic contractions were also monitored manually for strength of contraction. At the end of the procedure the Achieve catheter was once again used to check for entrance block Phrenic nerve stimulation was performed to confirm diaphragmatic stimulation the end of the procedure Cine fluoroscopy was performed at the very end of the procedure to confirm movement of both diaphragms with inspiration and expiration This is a long procedure and usual The right-sided pulmonary veins and a very complex anatomy especially the right inferior vein. In addition these veins had a very large ostia. The balloon would dye into the ostia resulting in very cold temperatures Therefore multiple short the carinal lesions had to be applied around the antral portions of the vein for both the right superior and right inferior He also had a left middle vein in a separately isolated At the end of the procedure the patient was extubated Venous sheaths were removed and hemostasis assured with a closure device PROCEDURES PERFORMED Diagnostic EP study CS pacing and recording Left and right transseptal catheterization Catheter the mapping of the tachycardia Intracardiac echocardiography Pulmonary vein isolation with transseptal and comprehensive EPS, [id number] Drug infusion, +[id number] Increase procedural services
[2022-03-27] MEDS ORDERED: NITROGLYCERIN OINT 1 INCH/GM PACKET TOPICAL ONE (18:11)
[2022-03-27] MEDS ORDERED: ACETAMINOPHEN IV (For NPO) 1,000 MG in EMPTY BAG 1 BAG IVPB ONE (18:30)
[2022-03-27] MEDS: LACTATED RINGERS 1,000 ML IV SCH (19:36)
[2022-03-27] MEDS: SODIUM CHLORIDE 0.9% 1,000 ML IV SCH (19:36)
[2022-03-27] MEDS: lisinopriL 20 MG TAB PO SCH (19:58)
[2022-03-27] MEDS: APIXABAN 5 MG TAB PO SCH (19:59)
[2022-03-27] MEDS: amLODIPine 10 MG TAB PO SCH (19:59)
[2022-03-27] MEDS ORDERED: FAMOTIDINE 20 MG/2 ML VIAL IV STA (20:11)
[2022-03-27] MEDS ORDERED: ATORVASTATIN 40 MG TAB PO SCH (21:00)
[2022-03-28] MEDS: SODIUM CHLORIDE 0.9% 1,000 ML IV SCH (01:40)
[2022-03-28] MEDS: LACTATED RINGERS 1,000 ML IV SCH (04:56)
[2022-03-28] MEDS ORDERED: PANTOPRAZOLE 40 MG TABLET PO SCH (07:30)
[2022-03-28 07:33] VITALS: BP 119/76; PULSE 71; RESP 14; TEMP 98.3
[2022-03-28] MEDS: APIXABAN 5 MG TAB PO SCH (07:35)
[2022-03-28] MEDS: amLODIPine 10 MG TAB PO SCH (07:36)
[2022-03-28] MEDS: lisinopriL 20 MG TAB PO SCH (07:36)
[2022-03-28] MEDS ORDERED: METOPROLOL SUCCINATE (ER) 50 MG TAB.ER.24H PO SCH (09:00)
[2022-03-28] MEDS ORDERED: NON FORMULARY DRUG (Amlodipine Besylate/Benazepril [Lotrel 10-40 Mg] 1 EACH Capsule) PO SCH (09:00)
--- NOTE | 2022-03-28 09:39 | P.DS ---
Providers Attending physician: Mark Gardiner Primary care physician: [facility] Course: This is a 51-year-old male who underwent successful atrial fibrillation on 03/27/2022. The patient is doing well postprocedure. He denies any chest pain or pressure. Denies shortness of breath. Telemetry reveals sinus mechanism. The patient's vital signs are stable. The patient was deemed stable for discharge home today per Dr. Gardiner. Please see EMR for further hospital course details.. Discharge diagnosis Paroxysmal atrial fibrillation despite stopping alcohol consumption Normal thyroid function Mild cardio myopathy Hypertension with left ventricular hypertrophy Obstructive sleep apnea Nurse practitioner note has been reviewed by physician. Signing provider agrees with the documented findings, assessment, and plan of care. Plan - Discharge Summary Discharge Rx Participant: Yes New Discharge Prescriptions: Continue amLODIPine BESYLATE/BENAZEPRIL [Lotrel 10-40 MG] 1 cap PO DAILY Apixaban [Eliquis] 5 mg PO BID 30 Days #60 tab Atorvastatin [Lipitor] 40 mg PO HS 90 Days #90 tab Esomeprazole Magnesium [NexIUM 24Hr] 20 mg PO DAILY Metoprolol Succinate (ER) [Toprol XL] 50 mg PO DAILY 90 Days #90 tab Discharge Medication List amLODIPine BESYLATE/BENAZEPRIL [Lotrel 10-40 MG] 1 cap PO DAILY 09/14/20 [History] Esomeprazole Magnesium [NexIUM 24Hr] 20 mg PO DAILY 05/02/21 [History] Apixaban [Eliquis] 5 mg PO BID 30 Days #60 tab 11/24/21 [Rx] Atorvastatin [Lipitor] 40 mg PO HS 90 Days #90 tab 11/25/21 [Rx] Metoprolol Succinate (ER) [Toprol XL] 50 mg PO DAILY 90 Days #90 tab 11/25/21 [Rx] Follow up Appointment(s)/Referral(s): Mark Gardiner MD [STAFF PHYSICIAN] - 04/04/22 9:00 am Patient Instructions/Handouts: Cardiac Ablation (DC), Electrophysiology Study (DC) Discharge Disposition: HOME SELF-CARE
== END 2022-03-28 09:35 | disposition home or self-care (01) ==
LOC: CATHEP 10:36 → 6NMEDSUR 17:45 → CATHEP 03-28 09:35
PROVIDERS: ATTEND Internal Medicine Clinical Cardiac Electrophysiology
DX: I48.0 Paroxysmal atrial fibrillation (principal); Z20.822 Contact with and (suspected) exposure to COVID-19
CPT/HCPCS: 93623; 93656; 87635; C1894 ×2; C1769 ×5; C1760; C1730 ×2; C1759; C1893; C1733; C1766; J2250; J0330; J1644 ×2; J1100; J2405; J2001 ×2; J3010; J2704; J1170

== ENCOUNTER 2024-01-29 13:45 | Emergency (ER) | payer OTHER ==
[2024-01-29 14:01] VITALS: RESP 18
--- NOTE | 2024-01-29 14:10 | ED ---
Back Pain HPI - General Chief Complaint: Back Pain/Injury Stated Complaint: Back Pain Time Seen by Provider: 01/29/24 14:01 Source: patient, RN notes reviewed Limitations: no limitations - History of Present Illness Initial Comments: This is a 53 year old male with a past medical history of back pain who presents to the ED with chief complaint of worsening lumbar back pain and sciatica over the last 3 weeks. Patient denies any recent falls or trauma to his lumbar spine. He denies saddle anesthesias, loss of bowel or bladder continence, fevers, history of IV drug use. He states that he has been taking the Motrin 800 at home with minimal relief. Denies abdominal pain, dysuria, hematuria, shortness of breath or chest pain. Patient has followed with immigration specialist in the past. Denies previous surguries on his spine. - Related Data Home Medications Medication Instructions Recorded Confirmed amLODIPine BESYLATE/BENAZEPRIL 1 cap PO DAILY 09/14/20 03/23/22 [Lotrel 10-40 MG] Esomeprazole Magnesium [NexIUM 20 mg PO DAILY 05/02/21 03/23/22 24Hr] Previous Rx's Medication Instructions Recorded Apixaban [Eliquis] 5 mg PO BID 30 Days #60 tab 11/24/21 Atorvastatin [Lipitor] 40 mg PO HS 90 Days #90 tab 11/25/21 Metoprolol Succinate (ER) [Toprol 50 mg PO DAILY 90 Days #90 tab 11/25/21 XL] Cyclobenzaprine [Flexeril] 10 mg PO TID PRN #15 tab 01/29/24 Ketorolac [Toradol] 10 mg PO Q8HR #15 tab 01/29/24 Allergies Allergy/AdvReac Type Severity Reaction Status Date / Time Penicillins AdvReac Fever Verified 01/29/24 14:01 Review of Systems ROS Statement: Those systems with pertinent positive or pertinent negative responses have been documented in the HPI. ROS Other: All systems not noted in ROS Statement are negative. Past Medical History Past Medical History: Atrial Fibrillation, Hypertension Additional Past Medical History / Comment(s): abdominal hernia History of Any Multi-Drug Resistant Organisms: None Reported Past Surgical History: Hernia Repair Additional Past Surgical History / Comment(s): finger sx Past Anesthesia/Blood Transfusion Reactions: No Reported Reaction Past Psychological History: No Psychological Hx Reported Smoking Status: Never smoker Past Alcohol Use History: Rare - Past Family History Mother Family Medical History: Cancer, COPD Additional Family Medical History / Comment(s): Mother of emphysema. She was a smoker. Father History Unknown: Yes Family Additional Family Medical History / Comment(s): Reports strong family history of heart disease, lung cancer General Exam Limitations: no limitations General appearance: alert, in no apparent distress Head exam: Present: atraumatic, normocephalic, normal inspection Eye exam: Present: normal appearance, PERRL, EOMI. Absent: scleral icterus, conjunctival injection, periorbital swelling ENT exam: Present: normal exam, mucous membranes moist Neck exam: Present: normal inspection. Absent: tenderness, meningismus, lymphadenopathy Respiratory exam: Present: normal lung sounds bilaterally. Absent: respiratory distress, wheezes, rales, rhonchi, stridor Cardiovascular Exam: Present: regular rate, normal rhythm, normal heart sounds. Absent: systolic murmur, diastolic murmur, rubs, gallop, clicks GI/Abdominal exam: Present: soft, normal bowel sounds. Absent: distended, tenderness, guarding, rebound, rigid Back exam: Present: full ROM (pain with active ROM in SI joints), tenderness (lumbar). Absent: CVA tenderness (R), CVA tenderness (L), paraspinal tenderness (lumbar) Neurological exam: Present: alert, oriented X3, CN II-XII intact Skin exam: Present: warm, dry, intact, normal color. Absent: rash Course Vital Signs 01/29/24 01/29/24 13:58 15:25 Temperature 98.3 F 98.1 F Pulse Rate 66 67 Respiratory 18 18 Rate Blood Pressure 150/83 139/76 O2 Sat by Pulse 96 97 Oximetry Medical Decision Making - Medical Decision Making Was pt. sent in by a medical professional or institution (, PA, [employer], urgent care, hospital, or assisted...) When possible be specific @ -No Did you speak to anyone other than the patient for history (EMS, parent, family, police, friend...)? What history was obtained from this source @ -No Did you review nursing and triage notes (agree or disagree)? Why? @ -I reviewed and agree with nursing and triage notes Were old charts reviewed (outside hosp., previous admission, EMS record, old EKG, old radiological studies, urgent care reports/EKG's, assisted records)? Report findings @ -No old charts were reviewed Differential Diagnosis (chest pain, altered mental status, abdominal pain women, abdominal pain men, vaginal bleeding, weakness, fever, dyspnea, syncope, headache, dizziness, GI bleed, back pain, seizure, CVA, palpatations, mental health, musculoskeletal)? @ -Differential Back Pain: Strain, zoster, cauda equina syndrome, epidural abscess, vertebral osteomyelitis, discitis, fracture, subluxation, disc herniation, DJD, spinal stenosis, dissection, AAA, pancreatitis, peptic ulcer disease, pyelonephritis, kidney stone, this is not meant to be an all-inclusive list. EKG interpreted by me (3pts min.). @ -As above X-rays interpreted by me (1pt min.). @ -X-ray of the lumbar spine reveals degenerative changes of the back. No acute process. CT interpreted by me (1pt min.). @ -None done U/S interpreted by me (1pt. min.). @ -None done What testing was considered but not performed or refused? (CT, X-rays, U/S, labs)? Why? @ -None What meds were considered but not given or refused? Why? @ -None Did you discuss the management of the patient with other professionals (professionals i.e. , PA, [employer], lab, RT, psych nurse, high school social studies teacher, client technologies specialist, teacher, press officer, sample case porter)? Give summary @ -No Was smoking cessation discussed for >3mins.? @ -No Was critical care preformed (if so, how long)? @ -No Were there social determinants of health that impacted care today? How? (Homelessness, low income, unemployed, alcoholism, drug addiction, transportation, low edu. Level, literacy, decrease access to med. care, group home, rehab)? @ -No Was there de-escalation of care discussed even if they declined (Discuss DNR or withdrawal of care, Hospice)? DNR status @ -No What co-morbidities impacted this encounter? (DM, HTN, Smoking, COPD, CAD, Cancer, CVA, ARF, Chemo, Hep., AIDS, mental health diagnosis, sleep apnea, morbid obesity)? @ -None Was patient admitted / discharged? Hospital course, mention meds given and route, prescriptions, significant lab abnormalities, going to OR and other pertinent info. @ -Charge. 53-year-old male with back pain. On examination patient started to have lumbar back pain with radiation to bilateral legs consistent with sciatica. There are no red flag findings concerning for further imaging. X-ray unremarkable for acute process. He is provided with a dose of muscle relaxer and Toradol with relief. Patient was provided with prescription for Flexeril and Toradol to take as needed for pain relief. Continue to use lidocaine patches, rest and heat. Patient provided with a referral to physician credentialing specialist for follow-up if symptoms progress or worsen. All questions answered at bedside and strict return plan discussed with the patient is verbalized under standing. Discussed with Dr. Smith. Undiagnosed new problem with uncertain prognosis? @ -No Drug Therapy requiring intensive monitoring for toxicity (Heparin, Nitro, Insulin, Cardizem)? @ -No Were any procedures done? @ -No Diagnosis/symptom? @ -Lumbar back pain with radiculopathy Acute, or Chronic, or Acute on Chronic? @ -Acute Uncomplicated (without systemic symptoms) or Complicated (systemic symptoms)? @ -Uncomplicated Side effects of treatment? @ -No Exacerbation, Progression, or Severe Exacerbation? @ -No Poses a threat to life or bodily function? How? (Chest pain, [place], [place], pneumonia, PE, COPD, DKA, ARF, appy, cholecystitis, CVA, Diverticulitis, Homicidal, Suicidal, threat to staff... and all critical care pts) @ -No Disposition Clinical Impression: Lumbar back pain, Degenerative disc disease, lumbar Disposition: HOME SELF-CARE Condition: Good Instructions (If sedation given, give patient instructions): Back Pain (ED) Additional Instructions: Return to the emergency department if symptoms worsen or do not improve. Follow-up with provided physician credentialing specialist for further evaluation. Take prescribed medications as needed for pain relief. Prescriptions: Cyclobenzaprine [Flexeril] 10 mg PO TID PRN #15 tab PRN Reason: Muscle Spasm Ketorolac [Toradol] 10 mg PO Q8HR #15 tab Is patient prescribed a controlled substance at d/c from ED?: No Referrals: Edwin Santiago DO [Primary Care Provider] - 1-2 days Stanton German DO [Doctor of Osteopathic Medicine] - 1-2 days Time of Disposition: 15:08
--- NOTE | 2024-01-29 14:50 | XR ---
EXAMINATION TYPE: XR lumbar spine 2 or 3V DATE OF EXAM: 01/29/2024 CLINICAL HISTORY: pain TECHNIQUE: Three views of the lumbar spine are submitted. COMPARISON: None. FINDINGS: There are 5 lumbar type vertebral bodies identified. The lumbar spine shows satisfactory alignment w ithout evidence of acute fracture or dislocation. Vertebral body heights are within normal limits. Mo derate to severe multilevel degenerative disc space narrowing. Grade 1 retrolisthesis L4 on L5 of 5 m m. Severe facet joint arthropathy. The overlying soft tissue appears unremarkable. IMPRESSION: Degenerative changes as discussed. ICD 10 NO FRACTURE, INITIAL EVALUATION
[2024-01-29] MEDS: KETOROLAC 15 MG/ML 1 ML VIAL IM STA (14:57)
[2024-01-29] MEDS: ORPHENADRINE 30 MG/ML 2 ML VIAL IM STA (14:57)
[2024-01-29 15:27] VITALS: BP 139/76; PULSE 67; TEMP 98.1
== END 2024-01-29 15:36 | disposition home or self-care (01) ==
LOC: EC 13:45
DX: M51.16 Intervertebral disc disorders with radiculopathy, lumbar region (principal); Z88.0 Allergy status to penicillin
CPT/HCPCS: 72100; 99283; 96372 ×2; J2360; J1885